=== PATIENT | female | born 1945 | race Caucasian/White ===

== ENCOUNTER → 2018-02-01 11:48 | Outpatient (CLI) | payer OTHER, SELFPAY ==
--- NOTE | 2018-02-08 09:27 | PM.PFT.1 ---
Pulmonary Function Test Referral & Results Date Patient Seen: 02/01/18 Requesting provider: Oskar Soto Indication: Dyspnea Results: The spirometry demonstrates an FVC of 2.10 L which is 60% of predicted. The FEV1 was measured at 1.44 L which is 54% of predicted. The FEV1/FVC ratio was 69 which is 91% of predicted. Following the administration of bronchodilator there was no appreciable change. Lung volumes show an SVC of 2.04 L which is 62% of predicted. The diffusing capacity was measured at 23.45 which is 75% of predicted. No hemoglobin value was provided, so no correction for potential anemia could be made, if appropriate. The maximum voluntary ventilation was reduced. Interpretation: This study demonstrates moderately severe obstructive lung disease as well as moderate restrictive lung disease. There is also a mild reduction in diffusing capacity Altogether this suggest a diagnosis of COPD. Clinical correlation suggested
== END ==
PROVIDERS: PCP Internal Medicine; Visit Provider Internal Medicine
DX: R06.00 Dyspnea, unspecified (principal)
CPT/HCPCS: 94010; 94060; 94726; 94729

== ENCOUNTER → 2018-08-11 13:39 | Outpatient (CLI) | payer OTHER, SELFPAY ==
--- NOTE | 2018-08-11 14:48 | PM.TREADMILL ---
Cardiac Stress Test Report Referral & Results Date Patient Seen: 08/11/18 Requesting provider: Oskar Soto Indication: Dyspnea Rest ECG: Unremarkable Procedure Note: After both written and verbal informed consent the patient had an IV started by the diagnostic imaging RN, and then was hooked up to the treadmill monitoring system. The Lexiscan material, and then the Cardiolite tracer, were administered sequentially. An additional 3 min was spent monitoring the patient while supine on the gurney. The patient had a normal response to all infused materials. Impression: Normal response to infuse materials. Perfusion imaging will be reported separately Of note patient reports some improvement in her dyspnea after starting a inhaled steroid. Will follow up with her as an outpatient. Please note: Actual ECG tracings can be found in the PACS system.
--- NOTE | 2018-08-11 16:00 | DI.NM.S_ITS ---
PATIENT NAME: JONATHAN GUTIÉRREZ : 1945 EXAM DATE: 08/11/2018 14:[address] HANDY ALEJANDRO M.D. CC: MODALITY: NM PATIENT TYPE: Out CONTRAST MEDIA: STATION ID: [id number] FLUORO TIME: PROCEDURE: NM KRISTIE PERF SPECT R&S PHARM Rest and pharmacological stress myocardial perfusion SPECT with gated imaging and ejection fraction RADIOPHARMACEUTICAL: 26.7 mCi Tc-99m tetrafosmin IV at rest and 27.3 mCi Tc-99m tetrafosmin IV at peak effect of pharmacological stress. Nxw-eob-nylvakse was performed. INDICATIONS: Dyspnea on Exertion COMPARISON: Comparison is made to the report of the prior study on 07/19/2007. CARDIAC STRESS: A pharmacologic stress test was performed under the supervision of an attending staff, using an infusion of Lexiscan . Hemodynamic data: Appropriate hemodynamic response to pharmacologic stress. Symptoms: The patient denied anginal chest pain. Aminophylline: Not given. EKG: No diagnostic changes of ischemia; no ectopy. FINDINGS: Raw data: There is suboptimal myocardial uptake of radiotracer. Significance subdiaphragmatic attenuation. No significant motion artifacts. Dedm-ad-dgzgg ratio is 0.52 ( normal is less than 0.38 for tetrafosmin tracer). Left ventricle function: Gated images demonstrate normal left ventricular wall thickening. No segmental wall motion abnormalities. No transient ischemic dilation; TID is 0.81 (normal less than 1.3). Left ventricle resting end diastolic volume is 167 mL. Left ventricle stress ejection fraction is 52%; normal range is above 45%. Myocardial perfusion: The image quality is suboptimal. There is significant subdiaphragmatic activity, interfering with perfusion imaging. There is a small, fixed apical defect on supine images which almost completely resolves on prone imaging, consistent with artifact . IMPRESSION: 1) Suboptimal study due to subdiaphragmatic interfering activity. 2) No evidence of ischemia. 3) Increased lung to heart ratio of tracer uptake. This can be seen in multivessel CAD. Clinical correlation is recommended. PATIENT NAME: JONATHAN GUTÉIRREZ : 1945 EXAM DATE: 08/11/2018 14:25 ORD. .: HANDY ALEJANDRO M.D. CC: MODALITY: NM PATIENT TYPE: Out CONTRAST MEDIA: STATION ID: [id number] FLUORO TIME: Dictated by: Dago Armijo on 08/15/2018 at 17:22 Approved by: Dago Armijo on 08/15/2018 at 17:38
== END ==
PROVIDERS: PCP Internal Medicine; Visit Provider Internal Medicine
DX: R06.09 Other forms of dyspnea (principal)
CPT/HCPCS: 78452; 93016; 93017; 93018; A9502; J2785

== ENCOUNTER → 2019-04-11 16:11 | Outpatient (CLI) | payer OTHER, SELFPAY ==
[2019-04-11 16:58] LABS: Add Manual Diff / Slide Review NO; Basophils Absolute Auto 0 /uL (0-100); Basophils Percent Auto 0.4 % (0-2); Eosinophils Absolute Auto 200 /uL (0-450); Eosinophils Percent Auto 2.1 % (2-4); Hematocrit 41.9 % (36-46); Hemoglobin 13.9 g/dL (12.0-16.0); Lymphocytes Absolute Auto 2400 /uL (1100-4500); Lymphocytes Percent Auto 32.9 % (25-40); Mean Corpuscular HGB Conc 33.1 % (30-36); Mean Corpuscular Hemoglobin 31.1 PG (26-34); Mean Corpuscular Volume 94.1 fL (80-100); Monocytes Absolute Auto 500 /uL (0-900); Monocytes Percent Auto 6.5 % (3-14); Neutrophils Absolute Auto 4300 /uL (1500-7000); Neutrophils Percent Auto 58.1 % (50-75); Platelet Count 205 X10^3/uL (150-400); Red Blood Cell Count 4.45 X10^6/uL (4.0-5.2); Red Cell Distribution Width 13.5 % (11.6-14.8); White Blood Cell Count 7.4 X10^3/uL (4.5-11.0)
[2019-04-11 17:11] LABS: Alanine Aminotransferase 12 IU/L (9-52); Albumin 4.5 g/dL (3.5-5.0); Albumin Globulin Ratio 1.3 (1.0-2.8); Alkaline Phosphatase 78 U/L (38-126); Aspartate Aminotransferase 19 IU/L (14-36); BUN Creatinine Ratio 31.1 (6-22); Bilirubin Total 0.7 mg/dL (0.2-1.3); Blood Urea Nitrogen 28 mg/dL (7-17); Calcium 10.7 mg/dL (8.4-10.2); Carbon Dioxide 28 mmol/L (22-32); Chloride 104 mmol/L (98-107); Estimated Glomerular Filt Rate > 60.0 mL/min (>60); Globulin 3.4 g/dL (1.7-4.1); Glucose 111 mg/dL (80-110); HEMOLYSIS < 15 (0-50); Lipase 159 U/L (23-300); Potassium 3.9 mmol/L (3.4-5.1); Sodium 143 mmol/L (137-145); Total Protein 7.9 g/dL (6.3-8.2)
[2019-04-11 17:20] LABS: Troponin I < 0.012 ng/mL (0.01-0.034)
[2019-04-11 17:25] LABS: Free T4, Direct Thyroxine 0.73 ng/dL (0.78-2.19)
[2019-04-11 17:40] LABS: Thyroid Stimulating Hormone 2.28 uIU/mL (0.47-4.68)
== END ==
PROVIDERS: PCP Internal Medicine; Visit Provider Internal Medicine
DX: I10 Essential (primary) hypertension (principal); R07.9 Chest pain, unspecified; R53.83 Other fatigue
CPT/HCPCS: 36415; 80053; 83690; 84439; 84443; 84484; 85025

== ENCOUNTER → 2019-05-04 10:46 | Outpatient (CLI) | payer OTHER, SELFPAY ==
--- NOTE | 2019-05-05 11:45 | PM.TREADMILL ---
Cardiac Stress Test Report Referral & Results Date Patient Seen: 05/05/19 Requesting provider: Oskar Soto Indication: Chest pain Rest ECG: Unremarkable Procedure Note: After both written and verbal informed consent the patient had an IV started by the diagnostic imaging RN, and then was hooked up to the treadmill monitoring system. The Lexiscan material, and then the Cardiolite tracer, were administered sequentially. An additional 3 min was spent monitoring the patient while supine on the gurney. The patient had a normal response to all infused materials. Impression: Normal response to infuse materials Please see perfusion imaging report for details regarding possible ischemia Please note: Actual ECG tracings can be found in the PACS system.
--- NOTE | 2019-05-06 07:11 | DI.NM.S_ITS ---
DATE OF SERVICE: 05/04/2019 PROCEDURE: Pharmacological perfusion study. INDICATIONS: Chest pain, underlying hypertension. RADIOPHARMACEUTICAL: 27.6 mCi technetium-99m Myoview IV was injected at stress and 26.0 mCi technetium-99m Myoview IV was injected at rest. CARDIAC STRESS: The patient underwent IV Lexiscan perfusion study under the supervision of an attending staff using standard IV Lexiscan protocol. The patient remained hemodynamically stable. Baseline EKG revealed sinus rhythm with low-voltage complexes in chest leads. During stress, there were no convincing ischemic changes. There were no significant arrhythmias. No significant symptoms were reported. RAW DATA: There was significant breast shadow as well as increased subdiaphragmatic activity. GATED STUDY: Resting LV ejection fraction 53% and stress LV ejection fracture 73% without any obvious wall motion abnormalities. Resting end-diastolic volume 136 mL. TID ratio 1.04, which is within normal. Lung/heart ratio 0.46, which is mildly abnormal. MYOCARDIAL PERFUSION: Resting supine images revealed a dcetd-tk-thjroimb-sized mildly decreased perfusion of the inferior wall. There is also a small-sized moderately-severe perfusion defect of the distal anterior wall extending into the distal anterior septum and distal anterior apex. During stress supine, there was a small-sized severe perfusion defect involving the distal anterior wall, anterior apex, and distal anterior septum. During prone images, those defects were significantly improved; however, there was minimally decreased perfusion of the distal anterior septum. CONCLUSION: No obvious reversible ischemia. The patient has inferior wall as well as distal anterior wall, anterior apex, and distal anterior septum defects seen during stress supine and resting supine images, and they got significantly improved during prone images, likely due to breast tissue attenuation artifact as well as diaphragmatic tissue attenuation artifact. There were hot spots seen near the inferior border of the heart. Significant breast shadow was seen. Normal contractility goes against the diagnosis of previous transmural myocardial infarction. As far as perfusion study is concerned, this is a low- risk myocardial perfusion scan. Lung/heart ratio is 0.46, suggestive of elevated left ventricular filling pressure. Consider 2d echo to make sure there is no valvular pathology or diastolic dysfunction. Daphne Palomino - [employer]ER/fara/ts doc#: [id number]/job#: [id number] dd: 05/05/2019 12:45:00 dt: 05/06/2019 06:43:00 DICTATING MD/COPIES TO: Jael Baxter MD COPIES MNE: CARINE
== END ==
PROVIDERS: PCP Internal Medicine; Visit Provider Internal Medicine
DX: R07.9 Chest pain, unspecified (principal); I10 Essential (primary) hypertension
CPT/HCPCS: 78452; 93016; 93017; 93018; A9502; J2785

== ENCOUNTER 2019-08-21 09:15 | Day surgery (SDC) | payer OTHER, SELFPAY ==
--- NOTE | 2019-08-21 | PATH_ITS ---
[facility] Accession Number: [id number] . 01 Material submitted: . colon - COLON POLYP AT 110 CM . 01 Clinical history: . SCREENING COLONOSCOPY . 02 Diagnosis: Colon, Polyp at 110 cm, Biopsy: Tubular adenoma. MRV 08/22/2019 0933 Local . 02 Electronically signed: . Karolina Armstrong MD, Pathologist NPI- [id number] . 01 Gross description: . COLON POLYP AT 110 CM: Received in formalin are 2 fragment(s) of saunders, soft tissue measuring 0.1 x 0.1 x 0.1 cm to 0.3 x 0.2 x 0.2 cm submitted entirely in 1 cassette(s) /[facility] 08/21/2019 192 Local . 02 Pathologist provided ICD-10: D12.6 . 02 CPT . 497156 Performed at: 01 [facility] [address] [facility] [place], [place], [place] [id number] MD Torres Marrero MD Phone: [phone] Performed at: 02 [facility] [address] [place], [place] [id number] MD Karolina Armstrong MD Phone: [phone]
[2019-08-21 09:37] VITALS: BP 121/77; PULSE 53; RESP 16; TEMP 36; O2SAT 98; BMI 28.2
[2019-08-21] MEDS: SODIUM CHLORIDE 0.9% 1,000 ML 200 ML IV (09:58)
--- NOTE | 2019-08-21 10:27 | PM.HP.1 ---
History of Present Illness History of Present Illness Date Patient Seen: 08/21/19 Time Patient Seen: 10:27 Chief complaint: [id number] SCREENING COLONOSCOPY Narrative: Patient presents for colorectal screening. That a previous colonoscopy 3 years ago that demonstrated numerous polyps 15-20.. No personal or family history of colon cancer. On further history denies any recent gastrointestinal symptoms. No nausea, vomiting, abdominal pain, loss of appetite, unexplained weight loss, change in bowel habits, diarrhea, constipation, melena, hematochezia, or bright red blood per rectum. Patient History Medical History Chronic pain syndrome (Chronic 04/14/11) Gout (Chronic) History of adenomatous polyp of colon (Chronic 04/07/16) Hyperlipidemia (Chronic) Hypertension (Chronic) Osteoarthritis (Chronic) Surgical History Anesthesia (Resolved) History of back surgery (Resolved) History of cholecystectomy (Resolved) History of knee replacement History of surgery (Resolved) S/P total abdominal hysterectomy and bilateral salpingo-oophorectomy Status post appendectomy Family & Social History Family History Grandfather Family history of diabetes mellitus (DM) Social History: household members spouse lives independently Yes caregiver/support person No Tobacco & Substance use: Smoking Status Never smoker alcohol intake current Meds Home Medications and Allergies Home Medications Medication Instructions Recorded Confirmed Type CA PANTOTHENATE/FOLIC ACID/VIT 1 tab PO QDAY #0 tab 05/16/13 08/21/19 History (MULTIVITAMIN) CHOLECALCIFEROL (VITAMIN D3) 400 unit PO QDAY #0 tab 05/16/13 08/21/19 History (Vitamin D3) Fish Oil (Fish Oil 500 MG Softgel) 1,200 mg PO QDAY #0 cap 05/16/13 08/21/19 History VITAMIN B COMPLEX (Vitamin B 1 tab PO QDAY #0 tab 05/16/13 08/21/19 History Complex) ascorbic acid (vitamin C) 500 mg PO QDAY #0 tab 05/16/13 08/21/19 History Disabled Parking Permit ea #1 08/05/17 08/17/19 Rx omeprazole 20 mg PO BID #60 cap 09/13/18 08/21/19 Rx lisinopril 40 mg PO BID #180 tab 04/20/19 08/21/19 Rx diazepam 5 mg tablet See Rx Instructions .ROUTE 06/08/19 08/21/19 Rx .COMPLEX #180 tablet hydrocodone 10 mg-acetaminophen See Rx Instructions .ROUTE 08/11/19 08/21/19 Rx 325 mg tablet .COMPLEX #360 tablet furosemide 40 mg tablet See Rx Instructions .ROUTE 08/14/19 08/21/19 Rx .COMPLEX #180 tablet celecoxib 200 mg capsule See Rx Instructions .ROUTE 08/17/19 08/21/19 Rx .COMPLEX #90 capsule pregabalin 150 mg capsule 150 mg PO DAILY #90 cap 08/17/19 08/21/19 Rx metoprolol tartrate [Lopressor] 100 mg PO BID 08/21/19 08/21/19 History Allergies Allergy/AdvReac Type Severity Reaction Status Date / Time duloxetine AdvReac Mild sedation Verified 08/17/19 14:17 Review of Systems Review of Systems Narrative: A complete review of systems is negative except as noted in the HPI Exam Vital Signs (past 8 hours): - 08/21/19 09:37 Temperature 96.8 F L Pulse Rate 53 L Respiratory Rate 16 Blood Pressure 121/77 Pulse Oximetry 98 Oxygen Delivery Method Room Air Narrative Exam Narrative: General-no acute distress, well nourished HEENT-moist mucous membranes, no scleral icterus Neck-supple, no lymphadenopathy Chest- non labored respirations, clear to auscultation bilaterally Cardiac-regular rate no peripheral edema Abdomen-soft, nontender, non distended Extremities-warm, well perfused Neurological-alert and oriented, no focal deficits Assessment & Plan Assessment and plan (1) Screening for colon cancer: Current visit: Yes Status: Acute Assessment & Plan narrative: The patient requires colorectal screening and colonoscopy is recommended. Technical details were discussed. Risks, benefits, alternatives explained. Risks including but not limited to myocardial infarction, aspiration, bleeding, pain, missed lesion, incomplete examination, need for further radiographic studies, colonic perforation, and need for major abdominal surgery were discussed. All questions were answered to their satisfaction, and they are in agreement with this plan.
[2019-08-21] MEDS: MIDAZOLAM 5 MG/5 ML VIAL IV (10:29)
[2019-08-21] MEDS: fentaNYL 250 MCG/5 ML INJ IV (10:29)
--- NOTE | 2019-08-21 10:59 | PM.OP.ENDO ---
Operative Date/Time/Diagnoses Date of procedure: 08/21/19 Time of procedure: 10:59 Pre-op diagnosis: Screening colonoscopy Post-op diagnosis: same Procedure & Clinicians Study performed: Colonoscopy Same procedure as scheduled: Yes Indications: This is a 73-year-old woman who underwent a colonoscopy 3 years ago that demonstrated numerous, 15-20 polyps. She presents today for routine screening. Surgeon: Paco Mccormick Procedure Notes SCOAP/Timeout: Performed Procedure in detail: Patient placed in left lateral decubitus position. Time out was performed. Procedural sedation was administered with Versed and Fentanyl. A rectal exam demonstrated no external hemorrhoids no internal masses. Colonoscopy scope was placed into the rectum and advanced through the colon to the cecum. The ileocecal valve was identified. The scope was then slowly withdrawn examining colon thoroughly in all directions. The colonoscopy was notable for the following 1. Less than 1 cm polyp at 110 cm from the anal verge within the ascending colon removed with biopsy forceps. Site was observed for hemostasis. 2. Sigmoid diverticulosis 3. Grade 1 internal hemorrhoids 4. Quality of prep moderate Scope withdrawal time: 7 Sedation minutes: 22 Findings: diverticulosis and polyp Specimen(s): other (Polyp from 110 cm) Complications: none Impression: Polyp, diverticulosis Post-procedure Recommendations: Colonscopy in 5 years Disposition: same day surgery
[2019-08-21 11:00] VITALS: BP 106/63; PULSE 48; RESP 10; TEMP 36.2; O2SAT 99
[2019-08-21 11:05] VITALS: BP 100/58; PULSE 51; RESP 12; O2SAT 100
[2019-08-21 11:10] VITALS: BP 98/62; PULSE 52; RESP 15; O2SAT 99
[2019-08-21 11:19] VITALS: BP 108/64; PULSE 50; RESP 16; TEMP 36.3; O2SAT 99
[2019-08-21 11:31] VITALS: BP 109/69; PULSE 55; RESP 16; TEMP 35.9; O2SAT 99
== END 2019-08-21 11:39 | disposition home or self-care (01) ==
PROVIDERS: PCP Internal Medicine; Visit Provider Surgery
PROC: 0DJD8ZZ Inspection of Lower Intestinal Tract, Via Natural or Artificial Opening Endoscopic (ICD-10-PCS; CPT 45378; principal; 2019-08-21 10:45)
DX: Z12.11 Encounter for screening for malignant neoplasm of colon (principal); Z86.010 Personal history of colon polyps; I10 Essential (primary) hypertension; E78.5 Hyperlipidemia, unspecified; K57.30 Diverticulosis of large intestine without perforation or abscess without bleeding; K64.0 First degree hemorrhoids; D12.6 Benign neoplasm of colon, unspecified
CPT/HCPCS: 45380; 99152; J2250; J3010

== ENCOUNTER → 2020-06-28 14:13 | Outpatient (CLI) | payer OTHER, SELFPAY ==
[2020-06-28 15:48] LABS: Alanine Aminotransferase 14 IU/L (<35); Albumin 4.3 g/dL (3.5-5.0); Albumin Globulin Ratio 1.2 (1.0-2.8); Alkaline Phosphatase 87 U/L (38-126); Aspartate Aminotransferase 25 IU/L (14-36); BUN Creatinine Ratio 39.3 (6-22); Bilirubin Total 0.6 mg/dL (0.2-1.3); Blood Urea Nitrogen 53 mg/dL (7-17); Calcium 10.3 mg/dL (8.4-10.2); Carbon Dioxide 32 mmol/L (22-32); Chloride 107 mmol/L (98-107); Cholesterol 219 mg/dL (140-199); Estimated Glomerular Filt Rate 38.1 mL/min (>60); Globulin 3.7 g/dL (1.7-4.1); Glucose 113 mg/dL (80-110); HDL Cholesterol 33 mg/dL (40-60); HEMOLYSIS < 15 (0-50); LDL Cholesterol Calculated 143 mg/dL (<100); Potassium 4.7 mmol/L (3.4-5.1); Sodium 144 mmol/L (137-145); Triglycerides 214 mg/dL (35-150)
== END ==
PROVIDERS: PCP Internal Medicine; Referring Provider Internal Medicine; Visit Provider Internal Medicine
DX: E78.5 Hyperlipidemia, unspecified (principal); I10 Essential (primary) hypertension
CPT/HCPCS: 36415; 80053; 80061

== ENCOUNTER → 2021-03-28 15:29 | Outpatient (CLI) | payer OTHER, SELFPAY ==
[2021-03-28 16:51] LABS: Appearance Urine UA SL CLOUDY; Bilirubin Urine UA NEGATIVE (NEGATIVE); Color Urine UA YELLOW; Glucose Urine UA NEGATIVE (Negative); Ketones Urine UA NEGATIVE (NEGATIVE); Leukocyte Esterase Urine UA 2+ (NEGATIVE); Nitrite Urine UA POSITIVE (Negative); Occult Blood Urine UA 2+ (Negative); Protein Urine UA NEGATIVE (Negative); Urobilinogen Urine UA 0.2 E.U./dL (0.2)
[2021-03-28 16:57] LABS: BUN Creatinine Ratio 28.8 (6-22); Blood Urea Nitrogen 34 mg/dL (7-17); Calcium 9.8 mg/dL (8.4-10.2); Carbon Dioxide 30 mmol/L (22-32); Chloride 105 mmol/L (98-107); Estimated Glomerular Filt Rate 44.4 mL/min (>60); Glucose 101 mg/dL (80-110); HEMOLYSIS < 15 (0-50); Potassium 4.4 mmol/L (3.4-5.1); Sodium 141 mmol/L (137-145)
[2021-03-28 17:07] LABS: pH Urine UA 5.5 (4.5-8.0)
[2021-03-28 17:10] LABS: Bacteria Urine Moderate (10-30); Culture Indicated Urine Specimen Cultured; RBC Urine 0-1/HPF (0-5/HPF); Squamous Epithelial Cell Urine 0-1 /HPF (0-5/HPF); WBC Urine >100/HPF (0-5/HPF)
== END ==
PROVIDERS: PCP Internal Medicine; Referring Provider Internal Medicine; Visit Provider Internal Medicine
DX: R30.0 Dysuria (principal); I10 Essential (primary) hypertension
CPT/HCPCS: 36415; 80048; 81001; 87077; 87086; 87186

== ENCOUNTER → 2021-10-09 15:55 | Outpatient (CLI) | payer OTHER, SELFPAY ==
[2021-10-09 17:12] LABS: Appearance Urine UA CLEAR; Bilirubin Urine UA NEGATIVE (NEGATIVE); Color Urine UA YELLOW; Glucose Urine UA NEGATIVE (Negative); Ketones Urine UA NEGATIVE (NEGATIVE); Leukocyte Esterase Urine UA TRACE (NEGATIVE); Nitrite Urine UA NEGATIVE (Negative); Occult Blood Urine UA NEGATIVE (Negative); Protein Urine UA NEGATIVE (Negative); Specific Gravity Urine UA 1.015 (1.000-1.035); Urobilinogen Urine UA 0.2 E.U./dL (0.2)
[2021-10-09 17:15] LABS: BUN Creatinine Ratio 26.4 (6-22); Blood Urea Nitrogen 24 mg/dL (7-17); Calcium 10.2 mg/dL (8.4-10.2); Carbon Dioxide 36 mmol/L (22-32); Chloride 102 mmol/L (98-107); Estimated Glomerular Filt Rate 59.9 mL/min (>60); Glucose 137 mg/dL (80-110); HEMOLYSIS 19 (0-50); Potassium 3.7 mmol/L (3.4-5.1); Sodium 139 mmol/L (137-145)
[2021-10-09 17:24] LABS: Bacteria Urine Occasional (0-1); Culture Indicated Urine Specimen Cultured; Hyaline Casts Urine 10-30/LPF; RBC Urine 0-1/HPF (0-5/HPF); Squamous Epithelial Cell Urine 1-5 /HPF (0-5/HPF); WBC Urine 5-10/HPF (0-5/HPF)
== END ==
PROVIDERS: PCP Internal Medicine; Referring Provider Internal Medicine; Visit Provider Internal Medicine
DX: I10 Essential (primary) hypertension (principal); N18.31 Chronic kidney disease, stage 3a; R30.0 Dysuria
CPT/HCPCS: 36415; 80048; 81001; 87086

== ENCOUNTER → 2022-04-27 15:00 | Outpatient (CLI) | payer OTHER, SELFPAY ==
[2022-04-27 16:47] LABS: Alanine Aminotransferase 17 IU/L (<35); Albumin 4.4 g/dL (3.5-5.0); Albumin Globulin Ratio 1.2 (1.0-2.8); Alkaline Phosphatase 122 U/L (38-126); Aspartate Aminotransferase 20 IU/L (14-36); BUN Creatinine Ratio 29.5 (6-22); Bilirubin Total 0.6 mg/dL (0.2-1.3); Blood Urea Nitrogen 28 mg/dL (7-17); Calcium 10.1 mg/dL (8.4-10.2); Carbon Dioxide 32 mmol/L (22-32); Chloride 99 mmol/L (98-107); Estimated Glomerular Filt Rate > 60 mL/min (>60); Globulin 3.8 g/dL (1.7-4.1); Glucose 124 mg/dL (80-110); HEMOLYSIS < 15 (0-50); Potassium 4.2 mmol/L (3.4-5.1); Sodium 140 mmol/L (137-145); Total Protein 8.2 g/dL (6.3-8.2)
== END ==
PROVIDERS: PCP Internal Medicine; Referring Provider Internal Medicine; Visit Provider Internal Medicine
DX: E78.5 Hyperlipidemia, unspecified (principal); G89.4 Chronic pain syndrome; I10 Essential (primary) hypertension; N18.31 Chronic kidney disease, stage 3a
CPT/HCPCS: 36415; 80053

== ENCOUNTER 2022-12-30 16:48 | Inpatient (IN) | payer OTHER, SELFPAY ==
[2022-12-30] VITALS (23 sets, daily range): BP systolic 143–203; BP diastolic 72–124; PULSE 79–101; RESP 21–34; TEMP 36.6; O2SAT 89–94; BMI 37.8
--- NOTE | 2022-12-30 17:39 | DI.RAD.S_ITS ---
PROCEDURE: XR CHEST 1V INDICATIONS: chest pain TECHNIQUE: One view of the chest was acquired. COMPARISON: [facility], , CHEST 2 VIEW, 12/27/2017, 10:42. FINDINGS: Surgical changes and devices: None. Lungs and pleura: Mild patchy diffuse reticulonodular pulmonary opacity. No pleural effusions or pneumothorax. Mediastinum: Mediastinal contours appear normal. Heart size is normal. Bones and chest wall: No suspicious bony lesions. Overlying soft tissues appear unremarkable. IMPRESSION: Mild atypical pneumonia. Dictated by: Jorge Gardner M.D. on 12/30/2022 at 17:58 Approved by: Jorge Gardner M.D. on 12/30/2022 at 17:58
[2022-12-30 17:50] LABS: INR 1.1 (0.9-1.3); Prothrombin Time 12.1 SECONDS (10.1-12.7)
[2022-12-30 17:53] LABS: PTT Partial Thromboplastin Tim 31 SECONDS (26-36)
[2022-12-30 17:55] LABS: Alanine Aminotransferase 25 IU/L (<35); Albumin 4.4 g/dL (3.5-5.0); Albumin Globulin Ratio 1.1 (1.0-2.8); Alkaline Phosphatase 122 U/L (38-126); Aspartate Aminotransferase 27 IU/L (14-36); BUN Creatinine Ratio 25.9 (6-22); Bilirubin Total 0.5 mg/dL (0.2-1.3); Blood Urea Nitrogen 21 mg/dL (7-17); Calcium 9.8 mg/dL (8.4-10.2); Carbon Dioxide 32 mmol/L (22-32); Chloride 99 mmol/L (98-107); Creatine Kinase 47 U/L (30-135); Estimated Glomerular Filt Rate > 60 mL/min (>60); Glucose 157 mg/dL (80-110); HEMOLYSIS 21 (0-50); Lipase 100 U/L (23-300); Magnesium 1.8 mg/dL (1.6-2.3); Potassium 3.5 mmol/L (3.4-5.1); Sodium 141 mmol/L (137-145); Total Protein 8.4 g/dL (6.3-8.2)
[2022-12-30 18:03] LABS: Add Manual Diff / Slide Review NO; Basophils Absolute Auto 0 /uL (0-100); Basophils Percent Auto 0.4 % (0-2); Eosinophils Absolute Auto 200 /uL (0-450); Eosinophils Percent Auto 1.4 % (2-4); Hematocrit 42.7 % (36-46); Hemoglobin 14.2 g/dL (12.0-16.0); Lymphocytes Absolute Auto 2100 /uL (1100-4500); Lymphocytes Percent Auto 18.8 % (25-40); Mean Corpuscular HGB Conc 33.2 % (30-36); Mean Corpuscular Hemoglobin 30.4 PG (26-34); Mean Corpuscular Volume 91.4 fL (80-100); Monocytes Absolute Auto 700 /uL (0-900); Monocytes Percent Auto 6.1 % (3-14); Neutrophils Absolute Auto 8300 /uL (1500-7000); Neutrophils Percent Auto 73.3 % (50-75); Platelet Count 220 X10^3/uL (150-400); Red Blood Cell Count 4.67 X10^6/uL (4.0-5.2); Red Cell Distribution Width 13.8 % (11.6-14.8); White Blood Cell Count 11.3 X10^3/uL (4.5-11.0)
[2022-12-30 18:04] LABS: NT-proBNP (BNP-Adult 18+) 1190 pg/mL (<450)
[2022-12-30 18:17] LABS: COVID19 -Nasal RAPID Negative (Negative)
--- NOTE | 2022-12-30 18:58 | ED.CHESTPAIN ---
HPI - Chest Pain General Chief Complaint: Chest Pain Stated Complaint: difficulty breathing Time Seen by Provider: 12/30/22 18:57 Source: patient Mode of arrival: Ambulatory Limitations: no limitations History of Present Illness HPI narrative: This is a 77-year-old female with history of hypertension, chronic pain syndrome, chronic kidney disease, gout, osteoarthritis and dyslipidemia complaint of shortness of breath and chest pressure that started today. Patient states she is had some shortness of breath and increasing tachypnea for several weeks but today developed significant shortness of breath after playing cards and started to walk to her car she also noticed a long episode of chest pressure that resolved and she is had 2 very short episodes later. Patient states substernal radiates towards her back nor else. She states activity seems to make her symptoms worse. Resting makes better but did not totally resolve her shortness of breath or chest pain. She denies any syncope or dizziness. She did feel weird earlier today when this started. She denies any diaphoresis. No nausea or vomiting. She states she does have chronic swelling in her lower extremity she does not appreciate any worsening or changing. She denies changes 1 leg versus the other. She does note 2 weeks ago she had a rash on her face where she swelled up had redness and blistering on the outside as well as inside of her mouth. She states it went away after week came back once before and then resolved. She denies fevers chills no cold cough or congestion. Patient states she is had multiple back surgeries remotely, prior knee surgery, appendectomy hysterectomy, cholecystectomy. She states no cardiac interventions or stents, no prior cardiac catheterization. She is had a stress test but remotely. No known drug allergies. No tobacco, alcohol or illicit. Related Data Home Medications Medication Instructions Recorded Confirmed CA PANTOTHENATE/FOLIC ACID/VIT 1 tab PO QDAY #0 tabs 05/16/13 12/30/22 (MULTIVITAMIN) CHOLECALCIFEROL (VITAMIN D3) 400 unit PO QDAY #0 tabs 05/16/13 12/30/22 (Vitamin D3) VITAMIN B COMPLEX (Vitamin B 1 tab PO QDAY #0 tabs 05/16/13 12/30/22 Complex) ascorbic acid (vitamin C) 500 mg 500 mg PO QDAY #0 tabs 05/16/13 12/30/22 tablet Previous Rx's Medication Instructions Recorded lisinopril 40 mg tablet 40 mg PO BID #180 tabs 10/09/21 Disabled Parking #1 ea 04/27/22 diazepam 5 mg tablet 5 mg PO Q8H PRN anxiety #180 tabs 05/01/22 pregabalin 150 mg capsule (Lyrica) 150 mg PO BID #180 caps 08/14/22 furosemide 40 mg tablet See Rx Instructions .Route 08/17/22 .COMPLEX #180 tabs omeprazole 20 mg capsule,delayed 20 mg PO BID #180 caps 08/25/22 release metoprolol tartrate 100 mg tablet 150 mg PO BID #270 tabs 09/07/22 (Lopressor) hydrocodone 10 mg-acetaminophen 1 - 2 tab PO Q4H PRN pain in 12/15/22 325 mg tablet joints #360 tabs apixaban 5 mg tablet (Eliquis) 5 mg PO BID #180 tabs 01/01/23 apixaban 5 mg tablet (Eliquis) 10 mg PO BID 7 days #28 tabs 01/01/23 Allergies Allergy/AdvReac Type Severity Reaction Status Date / Time duloxetine AdvReac Mild sedation Verified 09/07/22 14:33 Review of Systems Review of Systems ROS Unobtainable: All systems reviewed & are unremarkable except as noted in HPI and below Patient History Medical History Cardiomyopathy Chronic pain syndrome (04/14/11) Chronic renal failure, stage 3a Gout History of adenomatous polyp of colon (04/07/16) Hyperlipidemia Hypertension Osteoarthritis Uncomplicated opioid dependence Surgical History Anesthesia History of back surgery History of cholecystectomy History of knee replacement History of surgery S/P total abdominal hysterectomy and bilateral salpingo-oophorectomy Status post appendectomy Family History Grandfather Family history of diabetes mellitus (DM) Social History marital status: number of children: 2 household members: spouse lives independently: Yes caregiver/support person: No housing: house pets and animals: No education level: college occupational status: employed (Self Employed) current occupational exposures/hazards: No leisure activities: games (Bridge) and other (Boating, Traveling) Smoking Status: Never smoker Tobacco: How many years used: 0 quit status: quit date established (Never Started) second hand exposure: Yes (Past) alcohol intake: current substance use type: does not use Smoking Status: Never smoker Substance Use Type: does not use Exam Narrative Exam Narrative: GENERAL: Alert and oriented x three, elderly female in moderate distress. HEENT: Head normocephalic, atraumatic, EOMI, pupils reactive, face symmetric, moist mucous membranes NECK: Supple, full range of motion CARDIOVASCULAR: Regular rate and rhythm without murmurs, rubs or gallops. No JVD. Mild swelling bilateral lower extremities. No reproducible chest pain with palpation. No rash or skin changes. RESPIRATORY: Breath sounds equal bilaterally, no wheezes or rhonchi. Crackles bilateral bases. Mild tachypnea. ABDOMEN: Soft, nontender. Normoactive bowel sounds all 4 quadrants. No guarding or rebound, rigidity, no mass : No CVA tenderness EXTREMITIES: Normal range of motion, no clubbing. Neurovascularly intact NEUROLOGICAL: Cranial nerves II through XII grossly intact. Moving all extremities SKIN: Warm, dry, no petechiae, no rashes or lesions. Initial Vital Signs Initial Vital Signs: Vital Signs Blood Pressure 199/124 H 12/30/22 17:03 Course Orders Ordered: Discontinued Medications Acetaminophen (Acetaminophen 325 Mg Tablet) 650 mg PO Q6H PRN PRN Reason: Fever/Mild Pain (1-3) Hydrocodone Bitart/Acetaminophen (Hydrocodone/Acet 5/325 Tablet) 1 tab PO Q4H PRN PRN Reason: Pain, Moderate (4-6) Last Admin: 12/31/22 00:14 Dose: 1 tab Documented By: ABHINAV Hydrocodone Bitart/Acetaminophen (Hydrocodone/Acet 5/325 Tablet) 2 tab PO Q4H PRN PRN Reason: Pain, Moderate (4-6) Last Admin: 01/01/23 06:10 Dose: 2 tab Documented By: Admin: 01/01/23 01:11 Dose: 2 tab Documented By: Admin: 12/31/22 20:05 Dose: 2 tab Documented By: Admin: 12/31/22 14:25 Dose: 2 tab Documented By: Admin: 12/31/22 09:26 Dose: 2 tab Documented By: Admin: 12/31/22 04:31 Dose: 2 tab Documented By: ABHINAV Apixaban (Apixaban 5 Mg Tablet) 10 mg PO BID MALINA Stop: 01/07/23 09:01 Last Admin: 01/01/23 08:58 Dose: Not Given Documented By: Admin: 01/01/23 08:48 Dose: 10 mg Documented By: ALEM Aspirin (Aspirin 81 Mg Chew Tab) 324 mg PO NOW ONE Stop: 12/30/22 19:17 Last Admin: 12/30/22 19:22 Dose: 324 mg Documented By: VLADIMIR Diazepam (Diazepam 5 Mg Tablet) 5 mg PO Q8H PRN PRN Reason: anxiety Last Admin: 12/31/22 14:25 Dose: 5 mg Documented By: Furosemide (Furosemide 40 Mg/4 Ml Vial) 40 mg IV NOW ONE Stop: 12/30/22 19:50 Last Admin: 12/30/22 20:24 Dose: 40 mg Documented By: GIDEON Furosemide (Furosemide 40 Mg Tablet) 40 mg PO DAILY [facility] Last Admin: 01/01/23 08:48 Dose: 40 mg Documented By: Admin: 12/31/22 08:14 Dose: 40 mg Documented By: Heparin Sodium (Porcine) (Heparin 5,000 Unit/Ml Vial) 7,500 unit IV NOW ONE Stop: 12/30/22 20:23 Last Admin: 12/30/22 20:40 Dose: 7,500 unit Documented By: GIDEON Heparin Sodium (Porcine) (Heparin 5,000 Unit/Ml Vial) 2,000 unit IV NOW ONE Stop: 12/31/22 23:58 Last Admin: 01/01/23 00:09 Dose: 2,000 unit Documented By: OSMANI Hydralazine HCl (Hydralazine 20 Mg/Ml Vial) 10 mg IV Q6HR PRN PRN Reason: Hypertension Ceftriaxone Sodium 2,000 mg/ (Sodium Chloride) 100 mls @ 200 mls/hr IV NOW ONE Stop: 12/30/22 19:51 Last Infusion: 12/30/22 21:03 Dose: 0 mls/hr Documented By: Admin: 12/30/22 20:24 Dose: 200 mls/hr Documented By: GIDEON Heparin Sodium/Dextrose (Heparin Drip) 25,000 unit in 500 mls @ 20 mls/hr IV CONT MALINA; Protocol Last Titration: 12/31/22 23:55 Dose: 1,300 units/hr, 26 mls/hr Documented By: OSMANI Co-signed By: ABDIRAHMAN Titration: 12/31/22 19:06 Dose: 1,200 units/hr, 24 mls/hr Documented By: Co-signed By: OSMANI Admin: 12/31/22 17:11 Dose: 1,100 units/hr, 22 mls/hr Documented By: MS Co-signed By: EM Titration: 12/31/22 17:11 Dose: 1,100 units/hr, 22 mls/hr Documented By: MS Co-signed By: EM Titration: 12/31/22 09:31 Dose: 1,100 units/hr, 22 mls/hr Documented By: Co-signed By: CM Admin: 12/30/22 20:45 Dose: 1,000 units/hr, 20 mls/hr Documented By: GIDEON Co-signed By: LIANET Lisinopril (Lisinopril 20 Mg Tablet) 40 mg PO DAILY [facility] Last Admin: 01/01/23 08:48 Dose: 40 mg Documented By: Admin: 12/31/22 08:14 Dose: 40 mg Documented By: Magnesium Oxide (Magnesium Oxide 400 Mg Tablet) 400 mg PO DAILY [facility] Last Admin: 01/01/23 08:48 Dose: 400 mg Documented By: Admin: 12/31/22 08:14 Dose: 400 mg Documented By: Admin: 12/31/22 00:38 Dose: 400 mg Documented By: ABHINAV Metoprolol Tartrate (Metoprolol Ir 50 Mg Tablet) 150 mg PO BID [facility] Last Admin: 01/01/23 08:48 Dose: 150 mg Documented By: Admin: 12/31/22 20:04 Dose: 150 mg Documented By: Admin: 12/31/22 08:14 Dose: 150 mg Documented By: Naloxone HCl (Naloxone 0.4 Mg/Ml Vial) 0.2 mg IV Q2MIN PRN PRN Reason: Opiate Reversal Nitroglycerin (Nitroglycerin 0.4 Mg Sl Tab) 0.4 mg SL [id number] PRN PRN Reason: Chest Pain Last Admin: 12/30/22 19:35 Dose: 0.4 mg Documented By: Admin: 12/30/22 19:29 Dose: 0.4 mg Documented By: Admin: 12/30/22 19:23 Dose: 0.4 mg Documented By: VLADIMIR Pantoprazole Sodium (Pantoprazole Dr 20 Mg Tablet) 20 mg PO 0700,2100 [facility] Last Admin: 01/01/23 06:06 Dose: 20 mg Documented By: Admin: 12/31/22 20:05 Dose: 20 mg Documented By: Admin: 12/31/22 08:15 Dose: 20 mg Documented By: Pregabalin (Pregabalin 75 Mg Capsule) 150 mg PO DAILY [facility] Last Admin: 01/01/23 08:49 Dose: 150 mg Documented By: Admin: 12/31/22 08:15 Dose: 150 mg Documented By: Vitamin D (Cholecalciferol (Vitamin D3) 400 Unit Tablet) 400 unit PO DAILY [facility] Last Admin: 01/01/23 08:48 Dose: 400 unit Documented By: Admin: 12/31/22 08:14 Dose: 400 unit Documented By: Vital Signs Vital signs: Vital Signs - 8 hr 12/30/22 17:08 12/30/22 17:03 12/30/22 17:04 Temperature 97.8 F Pulse Rate 93 H 98 H Respiratory Rate 24 Blood Pressure 199/124 H 199/124 H Pulse Oximetry 93 91 Oxygen Delivery Method Room Air 12/30/22 17:30 12/30/22 17:30 12/30/22 18:00 Temperature Pulse Rate 85 Respiratory Rate 28 H Blood Pressure 188/92 H 190/112 H Pulse Oximetry 91 Oxygen Delivery Method 12/30/22 18:00 12/30/22 18:30 12/30/22 18:30 Temperature Pulse Rate 85 84 Respiratory Rate 29 H 28 H Blood Pressure 187/105 H Pulse Oximetry 91 92 Oxygen Delivery Method 12/30/22 19:00 12/30/22 19:00 12/30/22 19:23 Temperature Pulse Rate 83 81 Respiratory Rate 28 H Blood Pressure 189/102 H 189/102 H Pulse Oximetry 94 Oxygen Delivery Method 12/30/22 19:29 12/30/22 19:35 12/30/22 19:25 Temperature Pulse Rate 92 H 92 H 93 H Respiratory Rate 34 H Blood Pressure 191/103 H 177/96 H Pulse Oximetry 92 Oxygen Delivery Method 12/30/22 19:25 12/30/22 19:30 12/30/22 19:30 Temperature Pulse Rate 92 H Respiratory Rate 27 H Blood Pressure 191/103 H 203/100 H Pulse Oximetry 90 L Oxygen Delivery Method 12/30/22 19:35 12/30/22 19:35 12/30/22 19:40 Temperature Pulse Rate 92 H 93 H Respiratory Rate 26 H 29 H Blood Pressure 177/96 H Pulse Oximetry 90 L 89 L Oxygen Delivery Method 12/30/22 19:40 Temperature Pulse Rate Respiratory Rate Blood Pressure 152/95 H Pulse Oximetry Oxygen Delivery Method MDM - Chest Pain Lab Data 01/01/23 06:00 12/30/22 17:05 Labs: Lab Results 12/30/22 12/30/22 12/30/22 Range/Units 17:05 17:05 17:05 WBC 11.3 H (4.5-11.0) X10^3/uL RBC 4.67 (4.0-5.2) X10^6/uL Hgb 14.2 (12.0-16.0) g/dL Hct 42.7 (36-46) % MCV 91.4 (80-100) fL MCH 30.4 (26-34) PG MCHC 33.2 (30-36) % RDW 13.8 (11.6-14.8) % Plt Count 220 (150-400) X10^3/uL Neut % (Auto) 73.3 (50-75) % Lymph % (Auto) 18.8 L (25-40) % Hall % (Auto) 6.1 (3-14) % Eos % (Auto) 1.4 L (2-4) % Baso % (Auto) 0.4 (0-2) % Neut # (Auto) 8300 H (1253-4828) /uL Lymph # (Auto) 2100 (1832-1888) /uL Hall # (Auto) 700 (0-900) /uL Eos # (Auto) 200 (0-450) /uL Baso # (Auto) 0 (0-100) /uL PT 12.1 (10.1-12.7) SECONDS INR 1.1 (0.9-1.3) APTT 31 (26-36) SECONDS D-Dimer (<500) ng/ml Sodium 141 (137-145) mmol/L Potassium 3.5 (3.4-5.1) mmol/L Chloride 99 (98-107) mmol/L Carbon Dioxide 32 (22-32) mmol/L BUN 21 H (7-17) mg/dL Creatinine 0.81 (0.52-1.04) mg/dL Estimated GFR > 60 (>60) mL/min BUN/Creatinine Ratio 25.9 H (6-22) Glucose 157 H (80-110) mg/dL Lactate (0.7-2.1) mmol/L Calcium 9.8 (8.4-10.2) mg/dL Magnesium 1.8 (1.6-2.3) mg/dL Total Bilirubin 0.5 (0.2-1.3) mg/dL AST 27 (14-36) IU/L ALT 25 (<35) IU/L Alkaline Phosphatase 122 (38-126) U/L Total Creatine Kinase 47 (30-135) U/L CK-MB (CK-2) TNP CK-MB (CK-2) Rel Index TNP Troponin I 0.040 H (0.01-0.034) ng/mL NT-Pro-B Natriuret Pep (<450) pg/mL Total Protein 8.4 H (6.3-8.2) g/dL Albumin 4.4 (3.5-5.0) g/dL Globulin 4.0 (1.7-4.1) g/dL Albumin/Globulin Ratio 1.1 (1.0-2.8) Lipase 100 (23-300) U/L Procalcitonin (<0.5) ng/mL SARS-CoV-2 (PCR) (Negative) 12/30/22 12/30/22 12/30/22 Range/Units 17:05 17:05 17:05 WBC (4.5-11.0) X10^3/uL RBC (4.0-5.2) X10^6/uL Hgb (12.0-16.0) g/dL Hct (36-46) % MCV (80-100) fL MCH (26-34) PG MCHC (30-36) % RDW (11.6-14.8) % Plt Count (150-400) X10^3/uL Neut % (Auto) (50-75) % Lymph % (Auto) (25-40) % Hall % (Auto) (3-14) % Eos % (Auto) (2-4) % Baso % (Auto) (0-2) % Neut # (Auto) (5158-0520) /uL Lymph # (Auto) (3569-6341) /uL Hall # (Auto) (0-900) /uL Eos # (Auto) (0-450) /uL Baso # (Auto) (0-100) /uL PT (10.1-12.7) SECONDS INR (0.9-1.3) APTT (26-36) SECONDS D-Dimer 3308 H (<500) ng/ml Sodium (137-145) mmol/L Potassium (3.4-5.1) mmol/L Chloride (98-107) mmol/L Carbon Dioxide (22-32) mmol/L BUN (7-17) mg/dL Creatinine (0.52-1.04) mg/dL Estimated GFR (>60) mL/min BUN/Creatinine Ratio (6-22) Glucose (80-110) mg/dL Lactate 2.1 (0.7-2.1) mmol/L Calcium (8.4-10.2) mg/dL Magnesium (1.6-2.3) mg/dL Total Bilirubin (0.2-1.3) mg/dL AST (14-36) IU/L ALT (<35) IU/L Alkaline Phosphatase (38-126) U/L Total Creatine Kinase (30-135) U/L CK-MB (CK-2) CK-MB (CK-2) Rel Index Troponin I (0.01-0.034) ng/mL NT-Pro-B Natriuret Pep 1190 H (<450) pg/mL Total Protein (6.3-8.2) g/dL Albumin (3.5-5.0) g/dL Globulin (1.7-4.1) g/dL Albumin/Globulin Ratio (1.0-2.8) Lipase (23-300) U/L Procalcitonin (<0.5) ng/mL SARS-CoV-2 (PCR) (Negative) 12/30/22 12/30/22 12/30/22 Range/Units 17:05 17:43 19:16 WBC (4.5-11.0) X10^3/uL RBC (4.0-5.2) X10^6/uL Hgb (12.0-16.0) g/dL Hct (36-46) % MCV (80-100) fL MCH (26-34) PG MCHC (30-36) % RDW (11.6-14.8) % Plt Count (150-400) X10^3/uL Neut % (Auto) (50-75) % Lymph % (Auto) (25-40) % Hall % (Auto) (3-14) % Eos % (Auto) (2-4) % Baso % (Auto) (0-2) % Neut # (Auto) (2557-3752) /uL Lymph # (Auto) (2765-7944) /uL Hall # (Auto) (0-900) /uL Eos # (Auto) (0-450) /uL Baso # (Auto) (0-100) /uL PT (10.1-12.7) SECONDS INR (0.9-1.3) APTT (26-36) SECONDS D-Dimer (<500) ng/ml Sodium (137-145) mmol/L Potassium (3.4-5.1) mmol/L Chloride (98-107) mmol/L Carbon Dioxide (22-32) mmol/L BUN (7-17) mg/dL Creatinine (0.52-1.04) mg/dL Estimated GFR (>60) mL/min BUN/Creatinine Ratio (6-22) Glucose (80-110) mg/dL Lactate (0.7-2.1) mmol/L Calcium (8.4-10.2) mg/dL Magnesium (1.6-2.3) mg/dL Total Bilirubin (0.2-1.3) mg/dL AST (14-36) IU/L ALT (<35) IU/L Alkaline Phosphatase (38-126) U/L Total Creatine Kinase (30-135) U/L CK-MB (CK-2) CK-MB (CK-2) Rel Index Troponin I 0.045 H (0.01-0.034) ng/mL NT-Pro-B Natriuret Pep (<450) pg/mL Total Protein (6.3-8.2) g/dL Albumin (3.5-5.0) g/dL Globulin (1.7-4.1) g/dL Albumin/Globulin Ratio (1.0-2.8) Lipase (23-300) U/L Procalcitonin 0.06 (<0.5) ng/mL SARS-CoV-2 (PCR) Negative (Negative) 12/30/22 Range/Units 20:26 WBC (4.5-11.0) X10^3/uL RBC (4.0-5.2) X10^6/uL Hgb (12.0-16.0) g/dL Hct (36-46) % MCV (80-100) fL MCH (26-34) PG MCHC (30-36) % RDW (11.6-14.8) % Plt Count (150-400) X10^3/uL Neut % (Auto) (50-75) % Lymph % (Auto) (25-40) % Hall % (Auto) (3-14) % Eos % (Auto) (2-4) % Baso % (Auto) (0-2) % Neut # (Auto) (3667-3673) /uL Lymph # (Auto) (0864-0282) /uL Hall # (Auto) (0-900) /uL Eos # (Auto) (0-450) /uL Baso # (Auto) (0-100) /uL PT (10.1-12.7) SECONDS INR (0.9-1.3) APTT 30 (26-36) SECONDS D-Dimer (<500) ng/ml Sodium (137-145) mmol/L Potassium (3.4-5.1) mmol/L Chloride (98-107) mmol/L Carbon Dioxide (22-32) mmol/L BUN (7-17) mg/dL Creatinine (0.52-1.04) mg/dL Estimated GFR (>60) mL/min BUN/Creatinine Ratio (6-22) Glucose (80-110) mg/dL Lactate (0.7-2.1) mmol/L Calcium (8.4-10.2) mg/dL Magnesium (1.6-2.3) mg/dL Total Bilirubin (0.2-1.3) mg/dL AST (14-36) IU/L ALT (<35) IU/L Alkaline Phosphatase (38-126) U/L Total Creatine Kinase (30-135) U/L CK-MB (CK-2) CK-MB (CK-2) Rel Index Troponin I (0.01-0.034) ng/mL NT-Pro-B Natriuret Pep (<450) pg/mL Total Protein (6.3-8.2) g/dL Albumin (3.5-5.0) g/dL Globulin (1.7-4.1) g/dL Albumin/Globulin Ratio (1.0-2.8) Lipase (23-300) U/L Procalcitonin (<0.5) ng/mL SARS-CoV-2 (PCR) (Negative) Imaging Data Chest x-ray: Radiologist's Impression: No pneumo, no cardiomegaly, poor inspiratory effort, patient does appear to have currently be and signs of pulmonary edema. Close Chest X-Ray (Signed) Jorge Gardner - 12/30/22 Telemetry Strips 08/21/19 Radiology Report (Cancelled) Jael Baxter - 05/06/19 Myocardial Perfusion Scan Nuc Med (Signed) Vladimir Baxteru - 05/06/19 Myocardial Perfusion Scan Nuc Med (Signed) Dago Armijo - 08/11/18 Myocardial Perfusion Scan Nuc Med (Cancelled) 08/11/18 Pulmonary Function Test 02/01/18 Launch?[place] [address] XRay Report Signed Patient: Daphne Palomino MR#: [id number] : 1945 Acct:[id number] Age/Sex: 77 / F Date of Service: 12/30/22 Loc: ED Accession Number: [id number] ?? Procedure: XR chest 1V Ordering Provider: Eris Ferrara MD PROCEDURE:? XR CHEST 1V ? INDICATIONS:? chest pain ? TECHNIQUE:? One view of the chest was acquired.? ? COMPARISON:? [facility], CHEST 2 VIEW, 12/27/2017, 10:42. ? FINDINGS:? ? Surgical changes and devices:? None.? ? Lungs and pleura:? Mild patchy diffuse reticulonodular pulmonary opacity.? No pleural effusions or pneumothorax.? ? Mediastinum:? Mediastinal contours appear normal.? Heart size is normal.? ? Bones and chest wall:? No suspicious bony lesions.? Overlying soft tissues appear unremarkable.? ? IMPRESSION:? Mild atypical pneumonia. ? ? Dictated by: Jorge Gardner M.D. on 12/30/2022 at 17:58 ? ? Approved by: Jorge Gardner M.D. on 12/30/2022 at 17:58?? ECG Data Attestation: I personally reviewed and interpreted this ECG as follows: Prior ECG tracings: available for review Interpretation: Sinus rhythm occasional PVC rate of 94 HI, 194, QRS of 92 and QTC 475. Patient has left axis deviation, she has Q-waves in 3 and AVF which are present on prior from 12/15/2013 with some nonspecific change but no other acute ST elevation depression appreciated. EKG 2. Sinus rhythm, looks at deviation, rate of 84, P are 202 QRS of 92 QT 463. No dynamic changes appreciated. MDM Narrative Medical decision making narrative: This is a 77-year-old female who comes in with complaint of shortness of breath, chest pressure is quite hypertensive upon arrival, EKG has some nonspecific change but no acute ST elevation or depression, patient has had intermittent chest pressure today along with her shortness of breath which has been slowly increasing over time with hypoxia. Patient's CBC, coags and CMP did not show clear cause, LFTs are negative initial troponin is indeterminate at 0.04, BNP is 11 90. Chest x-ray shows changes consistent with some pulmonary edema. Patient was given aspirin, nitro which did improve patient's chest pain as well as blood pressure. Patient's dimer which was added on was quite elevated. She was sent for CT PE which found bilateral pulmonary emboli, no pneumonia appreciated. No pulmonary infarct, imaging does not suggest right heart strain but has extensive bilateral PE segmental and subsegmental with an all lobes. PESI score is 109. Repeat troponin and EKG show slight trend up at 0.045 on repeat, EKG does not have any dynamic changes. Case discussed with hospitalist service, Dr. Brink who accepts for admission. Discharge Plan Departure Patient Disposition: Admitted As Inpatient Clinical Impression: Pulmonary embolism Admit Date/Time: 12/30/22 21:04 Admit Provider: Jasson Brink
[2022-12-30] MEDS: ASPIRIN 81 MG CHEW TAB 324 MG PO (19:22)
[2022-12-30] MEDS: NITROGLYCERIN 0.4 MG SL TAB SL ×3 (19:23→19:35)
[2022-12-30 19:37] LABS: D Dimer 3308 ng/ml (<500)
--- NOTE | 2022-12-30 19:45 | DI.CT.S_ITS ---
PROCEDURE: CT ANGIO CHEST PE PROTOCOL INDICATIONS: chest pain TECHNIQUE: After the administration of intravenous contrast, 2 mm thick sections acquired from the pulmonary apices to the posterior costophrenic angles. 3-dimensional maximum intensity projection (MIP) coronal and sagittal reformats were then acquired through the thorax. For radiation dose reduction, the following was used: automated exposure control, adjustment of mA and/or kV according to patient size. COMPARISON: [facility], CT, PE STUDY (CTA CHEST), 06/29/2007, 15:45. [facility], CR, XR CHEST 1V, 12/30/2022, 17:35. FINDINGS: Image quality: Excellent. Pulmonary arteries: There are multiple filling defects within segmental and subsegmental pulmonary arteries within all lobes consistent with pulmonary embolism. The pulmonary arteries are enlarged, measuring up to 3.4 cm. No definite leftward deviation of the interventricular septum. Lower Neck: No lymphadenopathy by size criteria. Thyroid: Visualized thyroid demonstrates no discrete nodules. Axillae: No lymphadenopathy by size criteria. Chest Wall: Unremarkable. Bones: Visualized osseous structures demonstrate no suspicious lesions. Lungs and Airways: No acute consolidation. There are linear opacities in the lung bases consistent with atelectasis. No definite pulmonary infarcts. The trachea and central airways are patent. Pleura: No pneumothorax or pleural effusions. Heart: Heart size is normal. No pericardial effusion. Thoracic Vessels: The thoracic aorta is normal in size. Mediastinum and [place]: No lymphadenopathy by size criteria. Esophagus: No wall thickening. No hiatal hernia. Abdomen: Visualized upper abdomen demonstrates reflux of contrast into the inferior vena cava and hepatic veins suggestive of elevated right heart filling pressures. IMPRESSION: 1. Extensive bilateral pulmonary embolism involving segmental and subsegmental pulmonary arteries within all lobes. There is enlargement of the pulmonary arteries without leftward deviation of the interventricular septum to suggest definite right heart strain. Findings discussed with Dr. Smith on 12/30/2022 at 8:36 p.m.. Dictated by: Torres Lomeli M.D. on 12/30/2022 at 20:32 Approved by: Torres Lomeli M.D. on 12/30/2022 at 20:41
[2022-12-30 19:53] LABS: Troponin I 0.045 ng/mL (0.01-0.034)
[2022-12-30 20:08] LABS: Lactate (Lactic Acid) 2.1 mmol/L (0.7-2.1)
[2022-12-30] MEDS: FUROSEMIDE 40 MG/4 ML VIAL IV (20:24)
[2022-12-30] MEDS: cefTRIAXone 2,000 MG in SODIUM CHLORIDE 0.9% 100 ML 200 MG IV (20:24)
[2022-12-30 20:25] LABS: Procalcitonin 0.06 ng/mL (<0.5)
[2022-12-30] MEDS: HEPARIN 5,000 UNIT/ML VIAL 7500 UNIT IV (20:40)
[2022-12-30] MEDS: HEPARIN DRIP 25,000 UNIT/500 ML IV.SOLN 20 UNIT IV (20:45)
[2022-12-30 21:57] LABS: PTT Partial Thromboplastin Tim 30 SECONDS (26-36)
[2022-12-30 21:58] LABS: Reflexed Lactate in 2 Hours Y
[2022-12-30 23:13] LABS: MRSA (Nasal) PCR Not Detected (Not Detect)
[2022-12-31] VITALS (56 sets, daily range): BP systolic 102–224; BP diastolic 62–101; PULSE 56–92; RESP 14–40; TEMP 35.9–36.6; O2SAT 86–95
[2022-12-31] MEDS: HYDROCODONE/ACET 5/325 TABLET 1 TAB PO (00:14)
[2022-12-31] MEDS: MAGNESIUM OXIDE 400 MG TABLET PO ×2 (00:38→08:14)
[2022-12-31 03:05] LABS: Hematocrit 41.4 % (36-46); Hemoglobin 13.8 g/dL (12.0-16.0); Platelet Count 198 X10^3/uL (150-400)
[2022-12-31 03:16] LABS: PTT Partial Thromboplastin Tim 71 SECONDS (26-36)
[2022-12-31 03:18] LABS: Lactate 2HR (Lactic Acid Rflx) 1.6 mmol/L (0.7-2.1)
[2022-12-31] MEDS: HYDROCODONE/ACET 5/325 TABLET 2 TAB PO ×4 (04:31→20:05)
--- NOTE | 2022-12-31 07:41 | P.HP_ITS ---
History of Present Illness History of Present Illness Date Patient Seen: 12/31/22 Time Patient Seen: 07:41 Chief complaint: difficulty breathing Narrative: 74-year-old female well known to me presented to the emergency department with progressive shortness of breath some chest discomfort and notable hypertension. ER evaluation ultimately discovered bilateral extensive pulmonary emboli without evidence of right heart failure or strain. Patient had driven back from [place] without really stopping very long in early October so about 6 weeks prior. She is unclear as to when her symptoms began but probably shortly thereafter she thinks. Has had some increased lower extremity edema noted both upon her drive down to [place] in August as upon the return in October She was minimally hypoxic and admitted after being started on intravenous unfractionated heparin. In addition she had borderline troponins although ECG was without change from baseline [facility] Medical History Chronic pain syndrome (04/14/11) Chronic renal failure, stage 3a Gout History of adenomatous polyp of colon (04/07/16) Hyperlipidemia Hypertension Osteoarthritis Uncomplicated opioid dependence Surgical History Anesthesia History of back surgery History of cholecystectomy History of knee replacement History of surgery S/P total abdominal hysterectomy and bilateral salpingo-oophorectomy Status post appendectomy Family History Grandfather Family history of diabetes mellitus (DM) Social History marital status: number of children: 2 household members: spouse lives independently: Yes caregiver/support person: No housing: house pets and animals: No education level: college occupational status: employed (Self Employed) current occupational exposures/hazards: No leisure activities: games (Bridge) and other (Boating, Traveling) Smoking Status: Never smoker Tobacco: How many years used: 0 quit status: quit date established (Never Started) second hand exposure: Yes (Past) alcohol intake: current substance use type: does not use Meds Home Medications and Allergies Home Medications Medication Instructions Recorded Confirmed Type CA PANTOTHENATE/FOLIC ACID/VIT 1 tab PO QDAY #0 tabs 05/16/13 12/30/22 History (MULTIVITAMIN) CHOLECALCIFEROL (VITAMIN D3) 400 unit PO QDAY #0 tabs 05/16/13 12/30/22 History (Vitamin D3) VITAMIN B COMPLEX (Vitamin B 1 tab PO QDAY #0 tabs 05/16/13 12/30/22 History Complex) ascorbic acid (vitamin C) 500 mg 500 mg PO QDAY #0 tabs 05/16/13 12/30/22 History tablet lisinopril 40 mg tablet 40 mg PO BID #180 tabs 10/09/21 12/30/22 Rx Disabled Parking #1 ea 04/27/22 09/07/22 Rx diazepam 5 mg tablet 5 mg PO Q8H PRN anxiety #180 tabs 05/01/22 12/30/22 Rx pregabalin 150 mg capsule (Lyrica) 150 mg PO BID #180 caps 08/14/22 12/30/22 Rx furosemide 40 mg tablet See Rx Instructions .Route 08/17/22 12/30/22 Rx .COMPLEX #180 tabs omeprazole 20 mg capsule,delayed 20 mg PO BID #180 caps 08/25/22 12/30/22 Rx release metoprolol tartrate 100 mg tablet 150 mg PO BID #270 tabs 09/07/22 12/30/22 Rx (Lopressor) hydrocodone 10 mg-acetaminophen 1 - 2 tab PO Q4H PRN pain in 12/15/22 12/30/22 Rx 325 mg tablet joints #360 tabs celecoxib 200 mg capsule 200 mg PO DAILY 12/30/22 12/30/22 History Allergies Allergy/AdvReac Type Severity Reaction Status Date / Time duloxetine AdvReac Mild sedation Verified 09/07/22 14:33 Review of Systems Review of Systems ROS: Yes All systems reviewed with the patient and are negative except as otherwise documented Exam Vital Signs (past 8 hours): - 12/31/22 05:18 12/31/22 01:45 12/31/22 00:00 Temperature Pulse Rate 83 Respiratory Rate 21 Blood Pressure Pulse Oximetry 91 Oxygen Delivery Method Room Air Room Air 12/31/22 00:03 12/31/22 00:03 12/31/22 01:00 Temperature Pulse Rate 83 78 Respiratory Rate 28 H 24 Blood Pressure 182/93 H Pulse Oximetry 92 91 Oxygen Delivery Method 12/31/22 02:00 12/31/22 02:30 12/31/22 03:00 Temperature Pulse Rate 82 77 77 Respiratory Rate 25 H 26 H 27 H Blood Pressure Pulse Oximetry 93 92 93 Oxygen Delivery Method 12/31/22 03:11 12/31/22 03:11 12/31/22 03:30 Temperature Pulse Rate 75 72 75 Respiratory Rate 26 H 25 H 21 Blood Pressure 171/85 H Pulse Oximetry 92 94 94 Oxygen Delivery Method 12/31/22 04:00 12/31/22 04:00 12/31/22 04:03 Temperature Pulse Rate 77 79 Respiratory Rate 25 H 35 H Blood Pressure 192/88 H Pulse Oximetry 93 93 Oxygen Delivery Method 12/31/22 04:03 12/31/22 04:30 12/31/22 05:00 Temperature Pulse Rate 78 Respiratory Rate 27 H Blood Pressure 183/86 H 196/85 H Pulse Oximetry 94 Oxygen Delivery Method 12/31/22 05:00 12/31/22 05:06 12/31/22 05:06 Temperature 97.7 F Pulse Rate 79 78 Respiratory Rate 24 27 H Blood Pressure 187/88 H Pulse Oximetry 93 94 Oxygen Delivery Method 12/31/22 05:30 12/31/22 06:00 12/31/22 06:01 Temperature Pulse Rate 79 77 Respiratory Rate 21 16 Blood Pressure 161/76 H Pulse Oximetry 90 L 89 L Oxygen Delivery Method 12/31/22 06:01 12/31/22 06:30 12/31/22 07:00 Temperature Pulse Rate 79 78 76 Respiratory Rate 14 15 15 Blood Pressure Pulse Oximetry 89 L 91 92 Oxygen Delivery Method Oxygen Delivery Method Room Air Narrative Exam Narrative: Elderly female in no obvious distress sitting up in bed able to talk in full sentences does not appear to have any respiratory symptoms HEENT-unremarkable Neck-no bruits Lungs-good breath sounds no wheezes no crackles Heart-regular rate and rhythm, normal S1-S2 Abdomen-positive bowel tones, soft nontender nondistended, size limits exam however but no organomegaly noted Extremities-trace edema pretibially bilaterally Neuro-alert orient x3 no focal findings. Gait not tested. Objective Labs 12/31/22 02:45 12/30/22 17:05 Labs: Laboratory Results - last 24 hr 12/30/22 12/30/22 12/30/22 17:05 17:05 17:05 WBC 11.3 H RBC 4.67 Hgb 14.2 Hct 42.7 MCV 91.4 MCH 30.4 MCHC 33.2 RDW 13.8 Plt Count 220 Neut % (Auto) 73.3 Lymph % (Auto) 18.8 L Chambers % (Auto) 6.1 Eos % (Auto) 1.4 L Baso % (Auto) 0.4 Neut # (Auto) 8300 H Lymph # (Auto) 2100 Chambers # (Auto) 700 Eos # (Auto) 200 Baso # (Auto) 0 PT 12.1 INR 1.1 APTT 31 D-Dimer Sodium 141 Potassium 3.5 Chloride 99 Carbon Dioxide 32 BUN 21 H Creatinine 0.81 Estimated GFR > 60 BUN/Creatinine Ratio 25.9 H Glucose 157 H Lactate Calcium 9.8 Magnesium 1.8 Total Bilirubin 0.5 AST 27 ALT 25 Alkaline Phosphatase 122 Total Creatine Kinase 47 CK-MB (CK-2) TNP CK-MB (CK-2) Rel Index TNP Troponin I 0.040 H NT-Pro-B Natriuret Pep Total Protein 8.4 H Albumin 4.4 Globulin 4.0 Albumin/Globulin Ratio 1.1 Lipase 100 Procalcitonin Nasal Screen MRSA (PCR) SARS-CoV-2 (PCR) 12/30/22 12/30/22 12/30/22 17:05 17:05 17:05 WBC RBC Hgb Hct MCV MCH MCHC RDW Plt Count Neut % (Auto) Lymph % (Auto) Chambers % (Auto) Eos % (Auto) Baso % (Auto) Neut # (Auto) Lymph # (Auto) Chambers # (Auto) Eos # (Auto) Baso # (Auto) PT INR APTT D-Dimer 3308 H Sodium Potassium Chloride Carbon Dioxide BUN Creatinine Estimated GFR BUN/Creatinine Ratio Glucose Lactate 2.1 Calcium Magnesium Total Bilirubin AST ALT Alkaline Phosphatase Total Creatine Kinase CK-MB (CK-2) CK-MB (CK-2) Rel Index Troponin I NT-Pro-B Natriuret Pep 1190 H Total Protein Albumin Globulin Albumin/Globulin Ratio Lipase Procalcitonin Nasal Screen MRSA (PCR) SARS-CoV-2 (PCR) 12/30/22 12/30/22 12/30/22 17:05 17:43 19:16 WBC RBC Hgb Hct MCV MCH MCHC RDW Plt Count Neut % (Auto) Lymph % (Auto) Chambers % (Auto) Eos % (Auto) Baso % (Auto) Neut # (Auto) Lymph # (Auto) Chambers # (Auto) Eos # (Auto) Baso # (Auto) PT INR APTT D-Dimer Sodium Potassium Chloride Carbon Dioxide BUN Creatinine Estimated GFR BUN/Creatinine Ratio Glucose Lactate Calcium Magnesium Total Bilirubin AST ALT Alkaline Phosphatase Total Creatine Kinase CK-MB (CK-2) CK-MB (CK-2) Rel Index Troponin I 0.045 H NT-Pro-B Natriuret Pep Total Protein Albumin Globulin Albumin/Globulin Ratio Lipase Procalcitonin 0.06 Nasal Screen MRSA (PCR) SARS-CoV-2 (PCR) Negative 12/30/22 12/30/22 12/31/22 20:26 21:56 02:45 WBC RBC Hgb Hct MCV MCH MCHC RDW Plt Count Neut % (Auto) Lymph % (Auto) Chambers % (Auto) Eos % (Auto) Baso % (Auto) Neut # (Auto) Lymph # (Auto) Chambers # (Auto) Eos # (Auto) Baso # (Auto) PT INR APTT 30 D-Dimer Sodium Potassium Chloride Carbon Dioxide BUN Creatinine Estimated GFR BUN/Creatinine Ratio Glucose Lactate 1.6 Calcium Magnesium Total Bilirubin AST ALT Alkaline Phosphatase Total Creatine Kinase CK-MB (CK-2) CK-MB (CK-2) Rel Index Troponin I NT-Pro-B Natriuret Pep Total Protein Albumin Globulin Albumin/Globulin Ratio Lipase Procalcitonin Nasal Screen MRSA (PCR) Not detected SARS-CoV-2 (PCR) 12/31/22 12/31/22 02:45 02:45 WBC RBC Hgb 13.8 Hct 41.4 MCV MCH MCHC RDW Plt Count 198 Neut % (Auto) Lymph % (Auto) Chambers % (Auto) Eos % (Auto) Baso % (Auto) Neut # (Auto) Lymph # (Auto) Chambers # (Auto) Eos # (Auto) Baso # (Auto) PT INR APTT 71 H D D-Dimer Sodium Potassium Chloride Carbon Dioxide BUN Creatinine Estimated GFR BUN/Creatinine Ratio Glucose Lactate Calcium Magnesium Total Bilirubin AST ALT Alkaline Phosphatase Total Creatine Kinase CK-MB (CK-2) CK-MB (CK-2) Rel Index Troponin I NT-Pro-B Natriuret Pep Total Protein Albumin Globulin Albumin/Globulin Ratio Lipase Procalcitonin Nasal Screen MRSA (PCR) SARS-CoV-2 (PCR) Assessment & Plan Assessment & Plan narrative: 1. Pulmonary embolism, probably provoked by extended drive from [place]-at this point patient has been started on unfractionated heparin infusion given the extensive nature of her emboli on imaging. This point once she begins to improve we can likely switch her to a direct oral anticoagulant She most likely sustained a DVT due to the prolonged immobility of driving back from [place], and to that and I am going to go ahead and do an ultrasound of her lower extremities looking for DVT. Given the extensive nature of her clot however I would recommend evaluation for a hypercoagulable state as well. The other concern of course would be some undiagnosed malignancy. At this point do not have any evidence of that. Patient had colonoscopy in 2019 that did identify tubular adenoma. Not had mammography in the last several years. Is status post bilateral salpingo-oophorectomy. However given what appears to be the nature of her venous thromboembolism with the fairly recent extended drive over the course of several days that is much more likely etiology than an undiagnosed malignancy at this point especially given screening test she has undergone. At this point I am not going to proceed with further evaluation for possible malignancy. I am going to go ahead and get an echocardiogram as well given the extensive nature of her clot. 2. Borderline troponin-likely secondary to strain from the extensive pulmonary emboli. Patient did have negative cardiac stress testing in 2019 as well that include myocardial perfusion imaging. I think she is low risk for atherosclerotic disease as a source of any of her symptoms or abnormal labs etcetera 3. Hypertension-continue patient's usual meds and re-evaluate as we treat her PEs 4. Chronic renal failure stage 3 a-patient's numbers are actually much better than usual. I think she would be a reasonable candidate for direct oral anticoagulant 5. Chronic back pain-patient with multiple back surgeries and chronic back pain chronically on opiate narcotics as well for this. Continue with her usual meds for now 6. VTE prophylaxis-obviously patient has been diagnosed with a venous thromboembolism and is actively being treated with full-dose anticoagulation which will continue 7. Code status-patient requests a full code in the event of a sudden cardiac or respiratory arrest which is entirely appropriate and not at all anticipated at this point. COVID-19 COVID-19 status: Negative Result date/Date tested (Pos, Neg/Pending): 12/30/22 Quality VTE Deep Vein Thrombosis/Pulmonary Embolism Present on Admission: No
--- NOTE | 2022-12-31 08:09 | DI.ECHO.S_ITS ---
[place] [facility]---------+ [facility] +---------+ : : [address] : : : : [id number] : : : : Phone: [phone] Echocardiogram Report + + :Name: JONATHAN GUTIÉRREZ Study Date: 12/31/2022 Height: 69 in : :[facility] ReadingLocation: Weight: 255 lb : : Gender: Female BSA: 2.3 m2 : :: 1945 Age: 77 yrs BP: 161/76 mmHg: :Reason For Study: PULMONARY EMBOLISM : :Ordering Physician: JAVON, : :HANDY Paiz Performed By: Leanne Haji : :Referring: HANDY ALEJANDRO : + + Interpretation Summary 1) Normal left ventricular size and thickness with moderately reduced systolic function (EF 35-40%). 2) Normal right ventricular size with mildly reduced function. 3) There is mild to moderate aortic regurgitation. 4) No prior echo available for comparison. Procedure: A two-dimensional transthoracic echocardiogram with color flow and Doppler was performed. The study quality was technically adequate. The patient had an echocardiogram, but there is no comparison study available. The patient was in sinus bradycardia with heart rates between 63-71 bpm during the exam. Left Ventricle: The left ventricle is normal in size and wall thickness. The ejection fraction is estimated to be 35-40%. There is moderate global hypokinesis of the left ventricle. Diastolic parameters suggest a relaxation abnormality of the left ventricle, consistent with probable normal filling pressures. Right Ventricle: The right ventricle is normal size. Right ventricular systolic function is mildly reduced. Atria: The left atrial size is normal. Right atrial size is normal. There is no Doppler evidence for an interatrial shunt. Mitral Valve: The mitral valve leaflets appear mildly thickened, but open well. There is mild mitral regurgitation. Aortic Valve: The aortic valve is trileaflet. The aortic valve opens well. There is no aortic valve stenosis. There is mild to moderate aortic regurgitation. Tricuspid Valve: The tricuspid valve is normal in structure and function. There is mild tricuspid regurgitation. Right ventricular systolic pressure is estimated to be 30 mmHg plus the clinically estimated CVP which cannot be estimated on this exam. Pulmonic Valve: The pulmonic valve leaflets are thin and pliable; valve motion is normal. There is mild to moderate pulmonic regurgitation. Great Vessels: The aortic root is normal size. The dimensions of the ascending aorta are normal. The inferior vena cava was not well visualized. Pericardium/ Pleura There is no pericardial effusion. There is no pleural effusion. MMode/2D Measurements & Calculations LVIDd: 4.8 cm LVOT diam: 2.0 cm LVIDs: 3.8 cm Ao root diam: 3.3 cm FS: 21.3 % asc Aorta Diam: 3.8 cm IVSd: 0.95 cm Ao Arch Diam (Prox Trans): 3.3 cm LVPWd: 0.72 cm LV jimenez. diameter/BSA (cm/m^2): 2.1 LV sys. diameter/BSA (cm/m^2): 1.7 LA A2 area: 21.0 cm2 RA long axis: 4.6 cm LA A4 area: 18.6 cm2 RA area: 14.6 cm2 LA length (vol): 5.5 cm RA vol: 39.2 ml LA vol: 60.3 ml RA : 17.1 ml/m2 LA vol index: 26.3 ml/m2 RVD1 (basal): 3.7 cm RVD2 (mid): 2.8 cm TAPSE: 1.3 cm Doppler Measurements & Calculations Ao V2 max: 158.6 cm/sec LVOT Max Norman: 93.6 cm/sec Ao V2 mean: 114.3 cm/sec LV V1 max P.5 mmHg Ao max P.1 mmHg LV V1 VTI: 20.6 cm Ao mean P.7 mmHg CHUY(I,D): 1.9 cm2 Ao V2 VTI: 34.8 cm CHUY(V,D): 1.9 cm2 sev ratio: 0.59 CHUY indexed to BSA (cm^2/m^2): 0.83 AI P1/2t: 870.4 msec AI dec slope: 138.1 cm/sec2 MV E max norman: 41.7 cm/sec TR max norman: 267.8 cm/sec MV A max norman: 94.6 cm/sec TR max P.7 mmHg MV E/A: 0.44 PA V2 max: 91.5 cm/sec Med Peak E' Norman: 3.6 cm/sec PA V2 mean: 58.8 cm/sec E/E' med: 11.5 PA mean P.6 mmHg Lat Peak E' Norman: 3.4 cm/sec PA pr(Accel): 39.6 mmHg E/E' lat: 12.1 E/e' average: 11.8 MV dec time: 0.19 sec SVLVOT): 65.8 ml Reading Physician:04:22 PM
--- NOTE | 2022-12-31 08:10 | DI.US.S_ITS ---
PROCEDURE: US PERIPH VENOUS LOW EXTREM BI INDICATIONS: PULMONARY EMBOLISM TECHNIQUE: Real-time imaging, as well as color and pulse Doppler interrogation, were performed of the deep veins of both legs from the inguinal ligament to the popliteal fossa. COMPARISON: [facility], CT, CT ANGIO CHEST PE PROTOCOL, 12/30/2022, 19:51. FINDINGS: Right: The common femoral, femoral and popliteal veins are normally compressible, and free of intraluminal thrombus. Color and pulse Doppler demonstrate normal phasic intravascular flow. There is normal augmentation response to distal compression maneuver. Left: The common femoral, femoral and popliteal veins are normally compressible, and free of intraluminal thrombus. Color and pulse Doppler demonstrate normal phasic intravascular flow. There is normal augmentation response to distal compression maneuver. IMPRESSION: No lower extremity DVT demonstrated. Dictated by: Carlos Hwang M.D. on 12/31/2022 at 8:55 Approved by: Carlos Hwang M.D. on 12/31/2022 at 8:56
[2022-12-31] MEDS: lisinopriL 20 MG TABLET 40 MG PO (08:14)
[2022-12-31] MEDS: FUROSEMIDE 40 MG TABLET PO (08:14)
[2022-12-31] MEDS: CHOLECALCIFEROL (VITAMIN D3) 400 UNIT TABLET PO (08:14)
[2022-12-31] MEDS: METOPROLOL IR 50 MG TABLET 150 MG PO ×2 (08:14→20:04)
[2022-12-31] MEDS: PREGABALIN 75 MG CAPSULE 150 MG PO (08:15)
[2022-12-31] MEDS: PANTOPRAZOLE DR 20 MG TABLET PO ×2 (08:15→20:05)
[2022-12-31 09:58] LABS: PTT Partial Thromboplastin Tim 48 SECONDS (26-36)
--- NOTE | 2022-12-31 11:07 | CM.DANOTE ---
DCP: Case received, EMR reviewed and met with patient. Spouse, Francisco, was at bedside. Introduced self and role. Was able to obtain information regarding patient's baseline activity status prior to hospitalization. DCP assessment completed with information currently available. Patient is a 77 year old female who admitted yesterday evening to the care of the hospitalist team. PCP: Dr. Soto. Payer: confirmed: [facility] [employer]. Patient came to the hospital via private vehicle secondary to having increased shortness of breath. Patient had also mentioned chest discomfort', as well as HTN. Notes indicate that patient had been traveling back from [place] in their RV. Patient had also noted increased pulmonary edema. Patient was diagnosed with pulmonary embolism. She is currently getting heparin drip. Met with patient in her room, and spouse, Francisco, was at bedside. Confirmed that she resides here in [place] with spouse. They were both on their way back from [place], for she indicated that they go down their for patient's dental care. She is independent at her baseline, uses no DME. P: DCP to continue to follow. Patient should be able to go home when deemed medically stable. Melva Jacobson RN/Loaf Counter Discharge Planning/Care Management CM Discharge Assessment Start: 12/31/22 11:05 Freq: Status: Active Protocol: Document 12/31/22 11:06 (Rec: 12/31/22 11:07 [id number]) Discharge Planning Assessment Assigned Health Program Director Melva Jacobson RN/Loaf Counter Advance Directives? No History Provided By Patient,Medical Record Prior Living Arrangements House Comment one step into entrance Household Members spouse Type of transporation used prior to Drives own vehicle admit Independent with ADL's Yes Is patient alert and oriented? Yes Caregiver for Another No Barriers to Discharge No Discharge Plan Home Transportation Arrangement Spouse Referrals Initiated None needed Whiteboard Updated in Patient Room with Yes name and ext. # of Health Program Director Review Status In Process Next Review Type Continued Stay Review
[2022-12-31] MEDS: diazePAM 5 MG TABLET PO (14:25)
[2022-12-31] MEDS: HEPARIN DRIP 25,000 UNIT/500 ML IV.SOLN 22 UNIT IV (17:11)
[2022-12-31 17:17] LABS: PTT Partial Thromboplastin Tim 53 SECONDS (26-36)
[2022-12-31 23:45] LABS: PTT Partial Thromboplastin Tim 55 SECONDS (26-36)
[2023-01-01] VITALS (14 sets, daily range): BP systolic 143–171; BP diastolic 74–88; PULSE 58–71; RESP 13–21; TEMP 36–36.1; O2SAT 89–94
[2023-01-01] MEDS: HEPARIN 5,000 UNIT/ML VIAL 2000 UNIT IV (00:09)
[2023-01-01] MEDS: HYDROCODONE/ACET 5/325 TABLET 2 TAB PO ×2 (01:11→06:10)
[2023-01-01] MEDS: PANTOPRAZOLE DR 20 MG TABLET PO (06:06)
[2023-01-01 06:28] LABS: Hematocrit 40.6 % (36-46); Hemoglobin 13.7 g/dL (12.0-16.0); Platelet Count 198 X10^3/uL (150-400)
[2023-01-01 06:49] LABS: PTT Partial Thromboplastin Tim 80 SECONDS (26-36)
--- NOTE | 2023-01-01 08:24 | P.DS_ITS ---
History of Present Illness History of Present Illness Date Patient Seen: 01/01/23 Time Patient Seen: 08:24 Chief complaint: difficulty breathing Narrative: 74-year-old female well known to me presented to the emergency department with progressive shortness of breath some chest discomfort and notable hypertension. ER evaluation ultimately discovered bilateral extensive pulmonary emboli without evidence of right heart failure or strain. Patient had driven back from [place] without really stopping very long in early October so about 6 weeks prior. She is unclear as to when her symptoms began but probably shortly thereafter she thinks. Has had some increased lower extremity edema noted both upon her drive down to [place] in August as upon the return in October She was minimally hypoxic and admitted after being started on intravenous unfractionated heparin. In addition she had borderline troponins although ECG was without change from baseline Discharge Providers Provider Date of admission: 12/30/22 21:04 Discharge Date: 01/01/23 Primary care physician: Oskar Soto MD Discharge provider: Oskar Soto MD Summary Hospital Course Discharge Diagnosis: 1. Extensive bilateral pulmonary emboli 2. Chronic renal failure stage 3 a 4. Hypertension 5. Cardiomyopathy with left ventricular ejection fraction 35-40% with global hypokinesis 6. Hyperlipidemia 7. Chronic back pain Hospital Course: Patient was admitted after presenting to the ER as noted above. She was placed on intravenous unfractionated heparin. She had improvement in her overall status with decreasing blood pressure and improvement in her hypoxia. Subsequent testing demonstrated no evidence of significant cardiac effect based on echocardiography. She did have a newly diagnosed left ventricular cardiomyopathy showing global hypokinesis with left ventricular ejection fraction of about 40%. Ultrasound of lower extremities was performed looking for DVT given her history of extended car ride but no DVT was noted She continued to be improved with improved blood pressure etcetera. She was felt therefore to be stable for discharge home to continue on a direct oral anticoagulant to replace the parental heparin. Eliquis is approved for this use and was prescribed. She will continue on the starting dose of 10 mg b.i.d. for 1 week and then dropped to 5 mg b.i.d. following that Patient will also need to discontinue her Celebrex and this was discussed with her Her other medications can be continued Plan at this point is for her to continue anticoagulation for 3 months, unless 1 of her hypercoagulable studies returns abnormal Status at Discharge Cognitive/behavioral status at discharge: oriented Functional status at discharge: independent ambulation Overall status at discharge: patient is progressing back to baseline Exam Vital Signs (past 8 hours): - 01/01/23 00:30 01/01/23 01:00 01/01/23 01:30 Temperature Pulse Rate 61 61 59 L Respiratory Rate 20 18 21 Blood Pressure Pulse Oximetry 90 L 92 93 01/01/23 02:00 01/01/23 02:00 01/01/23 02:06 Temperature 96.8 F L Pulse Rate 60 Respiratory Rate 20 Blood Pressure 156/77 H Pulse Oximetry 92 01/01/23 03:00 01/01/23 03:30 01/01/23 04:00 Temperature Pulse Rate 61 65 Respiratory Rate 15 17 Blood Pressure 155/74 H Pulse Oximetry 90 L 89 L 01/01/23 04:00 01/01/23 04:30 01/01/23 05:00 Temperature Pulse Rate 61 59 L 62 Respiratory Rate 14 13 16 Blood Pressure Pulse Oximetry 89 L 92 90 L 01/01/23 06:00 01/01/23 05:30 01/01/23 06:00 Temperature 97.0 F L Pulse Rate 58 L Respiratory Rate 14 Blood Pressure 160/81 H Pulse Oximetry 92 01/01/23 06:00 Temperature Pulse Rate 63 Respiratory Rate 21 Blood Pressure Pulse Oximetry 94 Oxygen Delivery Method Room Air Objective Labs 01/01/23 06:00 12/30/22 17:05 Labs: Laboratory Results - last 24 hr 12/31/22 12/31/22 12/31/22 09:31 16:50 23:20 Hgb Hct Plt Count APTT 48 H D 53 H 55 H 01/01/23 01/01/23 06:00 06:00 Hgb 13.7 Hct 40.6 Plt Count 198 APTT 80 H* D PFSH Medical History Cardiomyopathy Chronic pain syndrome (04/14/11) Chronic renal failure, stage 3a Gout History of adenomatous polyp of colon (04/07/16) Hyperlipidemia Hypertension Osteoarthritis Uncomplicated opioid dependence Surgical History Anesthesia History of back surgery History of cholecystectomy History of knee replacement History of surgery S/P total abdominal hysterectomy and bilateral salpingo-oophorectomy Status post appendectomy Family History Grandfather Family history of diabetes mellitus (DM) Social History marital status: number of children: 2 household members: spouse lives independently: Yes caregiver/support person: No housing: house pets and animals: No education level: college occupational status: employed (Self Employed) current occupational exposures/hazards: No leisure activities: games (Bridge) and other (Boating, Traveling) Smoking Status: Never smoker Tobacco: How many years used: 0 quit status: quit date established (Never Started) second hand exposure: Yes (Past) alcohol intake: current substance use type: does not use Discharge Plan Discharge Plan Patient Disposition: Home Discharge orders & Medications Prescriptions: New Eliquis 5 mg tablet 10 mg PO BID 7 Days Qty: 28 0RF Eliquis 5 mg tablet 5 mg PO BID Qty: 180 3RF Rx Instructions: start after first week at higher dose (see separate Rx) Continued ascorbic acid (vitamin C) 500 MG tablet 500 mg PO QDAY Qty: 0 CHOLECALCIFEROL (VITAMIN D3) (Vitamin D3) 400 unit PO QDAY Qty: 0 VITAMIN B COMPLEX (Vitamin B Complex) 1 tab PO QDAY Qty: 0 CA PANTOTHENATE/FOLIC ACID/VIT (MULTIVITAMIN) 1 tab PO QDAY Qty: 0 lisinopril 40 mg tablet 40 mg PO BID Qty: 180 3RF Patient Comments: Patient reports Last two weeks my blood pressure has been low so I've only been taking it once a day in the morning. diazepam 5 mg tablet 5 mg PO Q8H PRN (Reason: anxiety) Qty: 180 0RF Lyrica 150 mg capsule 150 mg PO BID Qty: 180 0RF Patient Comments: Patient states she takes this med once a day. furosemide 40 mg tablet See Rx Instructions .ROUTE .COMPLEX Qty: 180 3RF Dose Instruction: TAKE ONE TABLET BY MOUTH 2 TIMES A DAY Rx Instructions: TAKE ONE TABLET BY MOUTH 2 TIMES A DAY omeprazole 20 mg capsule,delayed release(DR/EC) 20 mg PO BID Qty: 180 3RF hydrocodone-acetaminophen 10-325 mg tablet 1 - 2 tab PO Q4H PRN (Reason: pain in joints) Qty: 360 0RF (DME) Disabled Parking See Rx Instructions .ROUTE .MEDSUPPLY Qty: 1 0RF Rx Instructions: Patient qualifies for disabled parking as per the attached form. metoprolol tartrate [Lopressor] 100 mg tablet 150 mg PO BID Qty: 270 3RF Patient Comments: Takes PM dose around 3-4pm. Discontinued celecoxib 200 mg capsule 200 mg PO DAILY Rx Instructions: TAKE 1 CAPSULE BY MOUTH EVERY MORNING WITH FOOD Follow up/Referrals: Oskar Soto MD [Primary Care Provider] - 2 Weeks Discharge Health Status Multidrug resistant organism: No MDRO Diet/Activity/Treatments Diet: Diet as Tolerated Visit Report/Discharge Packet Stand Alone Forms: Patient Portal/API Discharge Data Primary Care Provider: Oskar Soto Quality VTE Deep Vein Thrombosis/Pulmonary Embolism Present on Admission: No
--- NOTE | 2023-01-01 08:42 | CM.DPC ---
DCP Discharge Home Per MD, pt is medically stable to d/c home today with outpt f/u and no identified barriers to discharge. Pt is independent at baseline and has supportive spouse. Per RN, no concerns noted. Plan: Patient to d/c home via spouse POV today and they live in [place] but also winter some down in [place]. No further SW needs at this time. RADHA Sierra
[2023-01-01] MEDS: METOPROLOL IR 50 MG TABLET 150 MG PO (08:48)
[2023-01-01] MEDS: MAGNESIUM OXIDE 400 MG TABLET PO (08:48)
[2023-01-01] MEDS: CHOLECALCIFEROL (VITAMIN D3) 400 UNIT TABLET PO (08:48)
[2023-01-01] MEDS: lisinopriL 20 MG TABLET 40 MG PO (08:48)
[2023-01-01] MEDS: APIXABAN 5 MG TABLET 10 MG PO (08:48)
[2023-01-01] MEDS: FUROSEMIDE 40 MG TABLET PO (08:48)
[2023-01-01] MEDS: PREGABALIN 75 MG CAPSULE 150 MG PO (08:49)
[2023-01-02 21:36] LABS: Protein C-Functional 190 % (73-180); Protein S-Functional 138 % (63-140)
[2023-01-11 09:21] LABS: Factor V Leiden Mutation NEGATIVE
[2023-01-11 13:18] LABS: Cardiolipin IgA Negative (.)
== END 2023-01-01 09:45 | disposition home or self-care (01) | DRG 176 ==
LOC: ED 21:03 → AC 21:05 → ICU 21:46
PROVIDERS: Emergency Medicine; Admitting Provider Family Medicine; Emergency Provider Emergency Medicine; PCP Internal Medicine; Referring Provider Emergency Medicine; Visit Provider Internal Medicine
DX: I26.94 Multiple subsegmental thrombotic pulmonary emboli without acute cor pulmonale (principal); I42.9 Cardiomyopathy, unspecified; M54.9 Dorsalgia, unspecified; G89.29 Other chronic pain; I12.9 Hypertensive chronic kidney disease with stage 1 through stage 4 chronic kidney disease, or unspecified chronic kidney disease; N18.31 Chronic kidney disease, stage 3a; Z20.822 Contact with and (suspected) exposure to COVID-19
CPT/HCPCS: 36415; 71045; 71275; 80053; 81241; 82550; 83520; 83605; 83690; 83735; 83880; 84145; 84484; 85014; 85018; 85025; 85049; 85300; 85303; 85306; 85379; 85610; 85730; 86147; 86148; 87040; 87635; 87797; 93005; 93010; 93306; 93970; 96365; 96367; 96368; 96375; 96376; 99223; 99238; 99284; 99285; C9803; J0696; J1644; J1940; Q9967

== ENCOUNTER 2023-09-02 14:37 | Emergency (ER) | payer OTHER, SELFPAY ==
[2023-01-12 11:14] VITALS: BMI 37.8
[2023-09-02] VITALS (11 sets, daily range): BP systolic 157–194; BP diastolic 73–86; PULSE 74–87; RESP 18–25; TEMP 36.2; O2SAT 91–97; BMI 35.9
--- NOTE | 2023-09-02 14:54 | DI.RAD.S_ITS ---
PROCEDURE: XR CHEST 1V INDICATIONS: Shortness of breath TECHNIQUE: One view of the chest was acquired. COMPARISON: [facility], CR, XR CHEST 1V, 12/30/2022, 17:35. FINDINGS: Surgical changes and devices: None. Lungs and pleura: Lungs are clear. No pleural effusions or pneumothorax. Mediastinum: Mediastinal contours appear normal. Heart size is normal. Bones and chest wall: No suspicious bony lesions. Overlying soft tissues appear unremarkable. IMPRESSION: No acute process. Dictated by: Jorge Gardner M.D. on 09/02/2023 at 15:20 Approved by: Jorge Gradner M.D. on 09/02/2023 at 15:20
[2023-09-02 15:05] LABS: Add Manual Diff / Slide Review NO; Basophils Absolute Auto 100 /uL (0-100); Basophils Percent Auto 1.2 % (0-2); Eosinophils Absolute Auto 100 /uL (0-450); Eosinophils Percent Auto 0.8 % (2-4); Hematocrit 40.1 % (36-46); Lymphocytes Absolute Auto 2200 /uL (1100-4500); Lymphocytes Percent Auto 17.9 % (25-40); Mean Corpuscular HGB Conc 32.5 % (30-36); Mean Corpuscular Hemoglobin 30.4 PG (26-34); Mean Corpuscular Volume 93.4 fL (80-100); Monocytes Absolute Auto 1000 /uL (0-900); Monocytes Percent Auto 8.6 % (3-14); Neutrophils Absolute Auto 8700 /uL (1500-7000); Neutrophils Percent Auto 71.5 % (50-75); Platelet Count 257 X10^3/uL (150-400); Red Blood Cell Count 4.29 X10^6/uL (4.0-5.2); Red Cell Distribution Width 13.6 % (11.6-14.8); White Blood Cell Count 12.1 X10^3/uL (4.5-11.0)
[2023-09-02 15:08] LABS: INR 1.1 (0.9-1.3)
[2023-09-02 15:16] LABS: Lactate (Lactic Acid) 1.5 mmol/L (0.7-2.1)
[2023-09-02 15:17] LABS: Alanine Aminotransferase 24 IU/L (<35); Albumin 4.3 g/dL (3.5-5.0); Alkaline Phosphatase 108 U/L (38-126); Bilirubin Total 1.1 mg/dL (0.2-1.3); Blood Urea Nitrogen 25 mg/dL (7-17); Calcium 10.4 mg/dL (8.4-10.2); Carbon Dioxide 36 mmol/L (22-32); Chloride 92 mmol/L (98-107); Estimated Glomerular Filt Rate 57 mL/min (>60); Globulin 4.2 g/dL (1.7-4.1); Glucose 135 mg/dL (80-110); HEMOLYSIS < 15 (0-50); Potassium 4.1 mmol/L (3.4-5.1); Sodium 135 mmol/L (137-145); Total Protein 8.5 g/dL (6.3-8.2)
[2023-09-02 15:29] LABS: NT-proBNP (BNP-Adult 18+) 144 pg/mL (<450); Troponin I < 0.012 ng/mL (0.01-0.034)
--- NOTE | 2023-09-02 15:43 | ED.GENADULT ---
HPI - General Adult General Chief complaint: Shortness of Breath/Dyspnea Stated complaint: Gout, SOB Time Seen by Provider: 09/02/23 15:32 Source: patient and EMS Mode of arrival: EMS History of Present Illness HPI narrative: Patient is a 77-year-old female who is here for evaluation of shortness of breath and gout. The shortness of breath that she has been having is shortness of breath on exertion that has been going on for the past several weeks/months. She does have history of pulmonary embolism. She has currently not on anticoagulation because she states that 1 of the medicines was too expensive in the other medicine caused her GI issues. She denies any cough. No chest pain. No fevers. No abdominal pain or nausea or vomiting. She was scheduled to see her primary care doctor for this. She was also here for what she states is gout in her left foot. She has had 2 prior episodes of gout. They have been in her feet in the past. She states this feels just like her history of gout. It initially started in her right foot and those symptoms are starting to improve but now it is in the left foot. This is similar to how it has happened in the past. She denies any specific trauma. Related Data Home Medications Medication Instructions Recorded Confirmed CA PANTOTHENATE/FOLIC ACID/VIT 1 tab PO QDAY #0 tabs 05/16/13 03/18/23 (MULTIVITAMIN) CHOLECALCIFEROL (VITAMIN D3) 400 unit PO QDAY #0 tabs 05/16/13 03/18/23 (Vitamin D3) VITAMIN B COMPLEX (Vitamin B 1 tab PO QDAY #0 tabs 05/16/13 03/18/23 Complex) ascorbic acid (vitamin C) 500 mg 500 mg PO QDAY #0 tabs 05/16/13 03/18/23 tablet Previous Rx's Medication Instructions Recorded Disabled Parking #1 ea 04/27/22 omeprazole 20 mg capsule,delayed 20 mg PO BID #180 caps 08/25/22 release metoprolol tartrate 100 mg tablet 150 mg (1.5 x 100 mg) PO BID #270 09/07/22 (Lopressor) tabs lisinopril 40 mg tablet 40 mg PO BID #180 tabs 05/05/23 hydrocodone 10 mg-acetaminophen 1 - 2 tab PO Q4H PRN pain in 08/18/23 325 mg tablet joints #360 tabs furosemide 40 mg tablet See Rx Instructions .Route 08/31/23 .COMPLEX #180 tabs celecoxib 200 mg capsule 200 mg PO DAILY #90 caps 09/01/23 diazepam 5 mg tablet 5 mg PO Q8H PRN anxiety #180 tabs 09/01/23 pregabalin 150 mg capsule (Lyrica) 150 mg PO BID #180 caps 09/01/23 prednisone 20 mg tablet 40 mg (2 x 20 mg) PO DAILY 7 days 09/02/23 #14 tabs Allergies Allergy/AdvReac Type Severity Reaction Status Date / Time duloxetine AdvReac Mild sedation Verified 09/02/23 17:43 Review of Systems Review of Systems ROS Unobtainable: All systems reviewed & are unremarkable except as noted in HPI and below Patient History Medical History Impaired glucose tolerance Cardiomyopathy Chronic renal failure, stage 3a Uncomplicated opioid dependence Osteoarthritis History of adenomatous polyp of colon (04/07/16) Gout Hyperlipidemia Chronic pain syndrome (04/14/11) Hypertension Surgical History Anesthesia History of back surgery History of surgery History of cholecystectomy History of knee replacement Status post appendectomy S/P total abdominal hysterectomy and bilateral salpingo-oophorectomy Family History Grandfather Family history of diabetes mellitus (DM) Social History marital status: number of children: 2 household members: spouse lives independently: Yes caregiver/support person: No housing: house pets and animals: No education level: college occupational status: employed current occupational exposures/hazards: No leisure activities: games and other Smoking Status: Never smoker Tobacco: How many years used: 0 quit status: quit date established second hand exposure: Yes (Past) alcohol intake: current substance use type: does not use Smoking Status: Never smoker alcohol intake frequency: other Substance Use Type: does not use Exam Initial Vital Signs Initial Vital Signs: Vital Signs Temperature 97.1 F L 09/02/23 14:40 Pulse Rate 87 09/02/23 14:40 Respiratory Rate 20 09/02/23 14:40 Blood Pressure 157/78 H 09/02/23 14:40 Pulse Oximetry 92 01/04/24 14:40 Oxygen Delivery Method Room Air 09/02/23 14:40 Const General: cooperative, comfortable and No ill appearing HENMT Head: normal to inspection and normocephalic Resp Effort & Inspection: normal respiratory effort Auscultation: clear to auscultation bilaterally Cardio Rate: regular rate Rhythm: regular rhythm GI Inspection: normal to inspection Back/Spine/Pelvis Other: Redness and warmth to the left foot that seems to be located around the great toe however does extend up the foot. No pustules noted. Neuro Sensory Exam: no sensory deficits noted Extrem Other: Swelling to the left foot. Course Orders Ordered: ED Orders 09/02/23 14:50 Complete Blood Count AUTO DIFF Stat Comprehensive Metabolic Panel Stat Lactate (Lactic Acid) Stat NT-proBNP (BNP-Adult 18+) Stat Prothrombin Time INR Stat Troponin I Stat Uric Acid Stat 09/02/23 14:54 XR chest 1V Stat EKG-12 Lead Stat Measure peak expiratory flow ONCE RT Consult Eval and Treat NOW 09/02/23 15:45 CT angio chest PE protocol Stat Discontinued Medications Prednisone (Prednisone 20 Mg Tablet) 20 mg PO NOW ONE Stop: 09/02/23 17:14 Last Admin: 09/02/23 17:22 Dose: Not Given Documented By: EDUARDO Prednisone (Prednisone 20 Mg Tablet) 40 mg PO NOW ONE Stop: 09/02/23 17:18 Last Admin: 09/02/23 17:23 Dose: 40 mg Documented By: EDUARDO Vital Signs Vital signs: Vital Signs - 8 hr 09/02/23 14:40 09/02/23 14:57 09/02/23 14:58 Temperature 97.1 F L Pulse Rate 87 79 80 Respiratory Rate 20 18 19 Blood Pressure 157/78 H Pulse Oximetry 92 94 Oxygen Delivery Method Room Air 09/02/23 14:58 09/02/23 15:00 09/02/23 15:00 Temperature Pulse Rate 81 Respiratory Rate 25 H Blood Pressure 166/81 H 161/73 H Pulse Oximetry 92 Oxygen Delivery Method Room Air 09/02/23 15:30 09/02/23 15:31 09/02/23 15:31 Temperature Pulse Rate 78 77 Respiratory Rate 21 18 Blood Pressure 165/76 H Pulse Oximetry 94 97 Oxygen Delivery Method 09/02/23 16:07 09/02/23 16:30 09/02/23 16:33 Temperature Pulse Rate 75 75 Respiratory Rate 19 22 Blood Pressure 194/80 H Pulse Oximetry 93 92 Oxygen Delivery Method Room Air 09/02/23 16:33 09/02/23 17:00 09/02/23 17:01 Temperature Pulse Rate 74 75 76 Respiratory Rate 21 20 22 Blood Pressure Pulse Oximetry 94 95 91 Oxygen Delivery Method 09/02/23 17:01 Temperature Pulse Rate Respiratory Rate Blood Pressure 190/86 H Pulse Oximetry Oxygen Delivery Method Medical Decision Making Medical Records Medical records reviewed: Yes I reviewed the patient's medical records. Lab Data Lab results reviewed: Yes I reviewed the patient's lab results. 09/02/23 14:50 09/02/23 14:50 Labs: Lab Results 09/02/23 Range/Units 14:50 WBC 12.1 H (4.5-11.0) X10^3/uL RBC 4.29 (4.0-5.2) X10^6/uL Hgb 13.0 (12.0-16.0) g/dL Hct 40.1 (36-46) % MCV 93.4 (80-100) fL MCH 30.4 (26-34) PG MCHC 32.5 (30-36) % RDW 13.6 (11.6-14.8) % Plt Count 257 (150-400) X10^3/uL Neut % (Auto) 71.5 (50-75) % Lymph % (Auto) 17.9 L (25-40) % Banner % (Auto) 8.6 (3-14) % Eos % (Auto) 0.8 L (2-4) % Baso % (Auto) 1.2 (0-2) % Neut # (Auto) 8700 H (1057-1986) /uL Lymph # (Auto) 2200 (0559-6011) /uL Banner # (Auto) 1000 H (0-900) /uL Eos # (Auto) 100 (0-450) /uL Baso # (Auto) 100 (0-100) /uL PT 13.0 H (9.4-12.5) SECONDS INR 1.1 (0.9-1.3) Sodium 135 L (137-145) mmol/L Potassium 4.1 (3.4-5.1) mmol/L Chloride 92 L (98-107) mmol/L Carbon Dioxide 36 H (22-32) mmol/L BUN 25 H (7-17) mg/dL Creatinine 1.00 (0.52-1.04) mg/dL Estimated GFR 57 L (>60) mL/min BUN/Creatinine Ratio 25.0 H (6-22) Glucose 135 H (80-110) mg/dL Lactate 1.5 (0.7-2.1) mmol/L Uric Acid 10.6 H (2.5-6.2) mg/dL Calcium 10.4 H (8.4-10.2) mg/dL Total Bilirubin 1.1 (0.2-1.3) mg/dL AST TNP ALT 24 (<35) IU/L Alkaline Phosphatase 108 (38-126) U/L Troponin I < 0.012 (0.01-0.034) ng/mL NT-Pro-B Natriuret Pep 144 (<450) pg/mL Total Protein 8.5 H (6.3-8.2) g/dL Albumin 4.3 (3.5-5.0) g/dL Globulin 4.2 H (1.7-4.1) g/dL Albumin/Globulin Ratio 1.0 (1.0-2.8) Imaging Data Chest x-ray: Radiologist's Impression: PROCEDURE: XR CHEST 1V INDICATIONS: Shortness of breath TECHNIQUE: One view of the chest was acquired. COMPARISON: [facility], CR, XR CHEST 1V, 12/30/2022, 17:35. FINDINGS: Surgical changes and devices: None. Lungs and pleura: Lungs are clear. No pleural effusions or pneumothorax. Mediastinum: Mediastinal contours appear normal. Heart size is normal. Bones and chest wall: No suspicious bony lesions. Overlying soft tissues appear unremarkable. IMPRESSION: No acute process. CT scan - chest: Radiologist's Impression: PROCEDURE: CT ANGIO CHEST PE PROTOCOL INDICATIONS: Chest pain, shortness of breath, tachycardia TECHNIQUE: After the administration of intravenous contrast, 2 mm thick sections acquired from the pulmonary apices to the posterior costophrenic angles. 3-dimensional maximum intensity projection (MIP) coronal and sagittal reformats were then acquired through the thorax. For radiation dose reduction, the following was used: automated exposure control, adjustment of mA and/or kV according to patient size. COMPARISON: [facility], CT, CT ANGIO CHEST PE PROTOCOL, 12/30/2022, 19:51. FINDINGS: Image quality: Diagnostic. Pulmonary arteries: Pulmonary arteries are normal in size, and demonstrate no intraluminal filling defects to suggest central pulmonary embolism. Lower Neck: No enlarged lymph nodes. Thyroid: No thyroid nodules which require sonographic follow up, per consensus guidelines. Axillae: No enlarged lymph nodes. Chest Wall: Unremarkable. Bones: Unremarkable. Lungs and Pleura: No pneumothorax or pleural effusions. No evidence of pneumonia. Scarring within the left anterior lung base. Mild scarring within the right upper lobe anteriorly. Heart: Heart size is normal. No pericardial effusion. Calcification of the coronary vasculature. Thoracic Vessels: No aortic aneurysm. Mediastinum and Grazyna: No enlarged lymph nodes. Esophagus: No wall thickening. No hiatal hernia. Upper Abdomen: Visualized upper abdomen solid organs and bowel loops appear normal. IMPRESSION: 1. No acute process. 2. No pulmonary embolus. 3. Coronary artery disease. ECG Data Attestation: I personally reviewed and interpreted this ECG as follows: Interpretation: Sinus rhythm Ventricular rate 81 Left axis deviation LVH Normal QRS No ST T wave changes MDM Narrative Medical decision making narrative: Patient's chest x-ray and CT scan of the chest show no acute pathology. I do not have a definitive diagnosis for her shortness of breath. I advised that she contact her primary doctor for a follow-up to discuss pulmonary function testing. There was no indication for antibiotics. Patient also has swelling and redness to the left foot. I did consider cellulitis however the patient states this feels just like her last episode of gout. She does have an elevated uric acid. She does have a slight leukocytosis however this could be explained because of gout. We did discuss the possibility of an infection however given her history we will treat with steroids. States the last time that this happened she took steroids and her symptoms improved very quickly. She was given return precautions for this specifically if her symptoms start to worsen I would at that point would consider cellulitis and antibiotics. She was given return precautions. She expressed understanding and agreement. Discharge Plan Departure Patient Disposition: Home Clinical Impression: Gout, Shortness of breath Instructions: DI for Gout Activity Restrictions/Additional Instructions: A prescription for steroids was sent to [facility]. Please start taking it as directed. The steroids only need to be taken until l your symptoms resolve. You do not have to complete the course of steroids if your symptoms resolve prior to 7 days. Recommend that you contact your primary care doctor for a follow-up. Return to the emergency department for new symptoms. Prescriptions: New prednisone 20 mg tablet 40 mg PO DAILY 7 Days Qty: 14 0RF No Action ascorbic acid (vitamin C) 500 MG tablet 500 mg PO QDAY Qty: 0 CHOLECALCIFEROL (VITAMIN D3) (Vitamin D3) 400 unit PO QDAY Qty: 0 VITAMIN B COMPLEX (Vitamin B Complex) 1 tab PO QDAY Qty: 0 CA PANTOTHENATE/FOLIC ACID/VIT (MULTIVITAMIN) 1 tab PO QDAY Qty: 0 omeprazole 20 mg capsule,delayed release(DR/EC) 20 mg PO BID Qty: 180 3RF lisinopril 40 mg tablet 40 mg PO BID Qty: 180 3RF Patient Comments: Patient reports Last two weeks my blood pressure has been low so I've only been taking it once a day in the morning. hydrocodone-acetaminophen 10-325 mg tablet 1 - 2 tab PO Q4H PRN (Reason: pain in joints) Qty: 360 0RF furosemide 40 mg tablet See Rx Instructions .ROUTE .COMPLEX Qty: 180 3RF Dose Instruction: TAKE ONE TABLET BY MOUTH 2 TIMES A DAY Rx Instructions: TAKE ONE TABLET BY MOUTH 2 TIMES A DAY celecoxib 200 mg capsule 200 mg PO DAILY Qty: 90 3RF Rx Instructions: TAKE 1 CAPSULE BY MOUTH EVERY MORNING WITH FOOD diazepam 5 mg tablet 5 mg PO Q8H PRN (Reason: anxiety) Qty: 180 0RF Lyrica 150 mg capsule 150 mg PO BID Qty: 180 2RF Patient Comments: Patient states she takes this med once a day. (DME) Disabled Parking See Rx Instructions .ROUTE .MEDSUPPLY Qty: 1 0RF Rx Instructions: Patient qualifies for disabled parking as per the attached form. metoprolol tartrate [Lopressor] 100 mg tablet 150 mg PO BID Qty: 270 3RF Patient Comments: Takes PM dose around 3-4pm. Referrals: Oskar Soto MD [Primary Care Provider] - Stand Alone Forms: Patient Portal/API
[2023-09-02 16:34] LABS: Uric Acid 10.6 mg/dL (2.5-6.2)
--- NOTE | 2023-09-02 16:58 | PC.NURSE ---
pt's left foot/toes are swollen and red. some peeling also noted. SOB for several weeks. left foot is very painful to touch.
[2023-09-02] MEDS: predniSONE 20 MG TABLET 40 MG PO (17:23)
[2023-09-03 15:22] LABS: Aspartate Aminotransferase 35 IU/L (14-36)
== END 2023-09-02 17:36 | disposition home or self-care (01) ==
PROVIDERS: Emergency Provider Emergency Medicine; PCP Internal Medicine
DX: M10.9 Gout, unspecified (principal); R06.02 Shortness of breath; R07.9 Chest pain, unspecified; R00.0 Tachycardia, unspecified
CPT/HCPCS: 36415; 71045; 71275; 80053; 83605; 83880; 84484; 84550; 85025; 85610; 93005; 99284

== ENCOUNTER 2023-10-05 11:21 | Inpatient (IN) | payer OTHER, SELFPAY ==
[2023-01-12 11:14] VITALS: BMI 37.8
[2023-10-05] VITALS (82 sets, daily range): BP systolic 77–148; BP diastolic 44–90; PULSE 41–92; RESP 8–32; TEMP 30.1–37; O2SAT 87–100; BMI 35.9
--- NOTE | 2023-10-05 11:32 | DI.RAD.S_ITS ---
PROCEDURE: XR CHEST 1V INDICATIONS: chest pain TECHNIQUE: One view of the chest was acquired. COMPARISON: [facility], CR, XR CHEST 1V, 09/02/2023, 14:50. FINDINGS: Surgical changes and devices: None. Lungs and pleura: Lungs are clear. No pleural effusions or pneumothorax. Mediastinum: Mediastinal contours appear normal. Heart size is normal. Bones and chest wall: No suspicious bony lesions. Overlying soft tissues appear unremarkable. IMPRESSION: No acute cardiopulmonary abnormality is seen. Dictated by: Jorge Gardner M.D. on 10/05/2023 at 11:58 Approved by: Jorge Gardner M.D. on 10/05/2023 at 11:59
[2023-10-05 11:49] LABS: Add Manual Diff / Slide Review NO; Basophils Absolute Auto 0 /uL (0-100); Basophils Percent Auto 0.2 % (0-2); Eosinophils Absolute Auto 200 /uL (0-450); Eosinophils Percent Auto 1.4 % (2-4); Hematocrit 38.5 % (36-46); Hemoglobin 12.6 g/dL (12.0-16.0); Lymphocytes Absolute Auto 2100 /uL (1100-4500); Lymphocytes Percent Auto 12.7 % (25-40); Mean Corpuscular HGB Conc 32.6 % (30-36); Monocytes Absolute Auto 1000 /uL (0-900); Monocytes Percent Auto 6.1 % (3-14); Neutrophils Absolute Auto 12900 /uL (1500-7000); Neutrophils Percent Auto 79.6 % (50-75); Platelet Count 302 X10^3/uL (150-400); Prothrombin Time 11.4 SECONDS (9.4-12.5); Red Blood Cell Count 4.05 X10^6/uL (4.0-5.2); Red Cell Distribution Width 13.7 % (11.6-14.8); White Blood Cell Count 16.2 X10^3/uL (4.5-11.0)
[2023-10-05 11:51] LABS: PTT Partial Thromboplastin Tim 37 SECONDS (25.1-36.5)
[2023-10-05] MEDS: SODIUM CHLORIDE 0.9% 2,055 ML 685 ML IV (11:53)
[2023-10-05 11:59] LABS: Alanine Aminotransferase 18 IU/L (<35); Albumin Globulin Ratio 1.1 (1.0-2.8); Alkaline Phosphatase 86 U/L (38-126); Aspartate Aminotransferase 26 IU/L (14-36); Bilirubin Total 0.8 mg/dL (0.2-1.3); Blood Urea Nitrogen 65 mg/dL (7-17); Calcium 9.4 mg/dL (8.4-10.2); Carbon Dioxide 30 mmol/L (22-32); Chloride 97 mmol/L (98-107); Creatine Kinase 68 U/L (30-135); Estimated Glomerular Filt Rate 17 mL/min (>60); Globulin 3.5 g/dL (1.7-4.1); Glucose 124 mg/dL (80-110); HEMOLYSIS < 15 (0-50); Lipase 237 U/L (23-300); Magnesium 1.7 mg/dL (1.6-2.3); Sodium 136 mmol/L (137-145); Total Protein 7.5 g/dL (6.3-8.2)
[2023-10-05 12:04] LABS: Lactate (Lactic Acid) 0.9 mmol/L (0.7-2.1)
--- NOTE | 2023-10-05 12:04 | ED_ITS ---
HPI - Weakness General Chief complaint: Weakness Stated complaint: Gen Weakness Time Seen by Provider: 10/05/23 11:53 Source: patient Mode of arrival: EMS Limitations: no limitations History of Present Illness HPI Narrative: 77-year-old female with history of pulmonary emboli no longer anticoagulated, hypertension, chronic pain syndrome, chronic kidney disease, gout, osteoarthritis and dyslipidemia presents with weakness. Patient states it started yesterday she felt very weak she was having trouble focusing, felt confused having trouble using her phone and just weak all over. She states that is persisted into today. She denies any fevers or chills. She initially denies any chest pain or shortness of breath but then states she always has that it has not any worse than normal. Patient states no new swelling of her legs but has had some increased swelling in her ankles. She denies syncope. She denies lightheadedness. She denies nausea or vomiting. She denies diarrhea. States she was constipated but had a very large formed bowel movement yesterday. Patient states she continues to feel weak today. She used to be on blood thinners for pulmonary emboli is no longer taking them. Did have a CTA of her chest on 09/02/2023 which was negative at that time. Patient has allergy to duloxetine. Related Data Home Medications Medication Instructions Recorded Confirmed CA PANTOTHENATE/FOLIC ACID/VIT 1 tab PO QDAY #0 tabs 05/16/13 10/05/23 (MULTIVITAMIN) CHOLECALCIFEROL (VITAMIN D3) 400 unit PO QDAY #0 tabs 05/16/13 10/05/23 (Vitamin D3) VITAMIN B COMPLEX (Vitamin B 1 tab PO QDAY #0 tabs 05/16/13 10/05/23 Complex) ascorbic acid (vitamin C) 500 mg 500 mg PO QDAY #0 tabs 05/16/13 10/05/23 tablet furosemide 40 mg tablet 40 mg PO BID 10/05/23 10/05/23 lisinopril 40 mg tablet 40 mg PO QAM 10/05/23 10/05/23 Previous Rx's Medication Instructions Recorded Disabled Parking #1 ea 04/27/22 metoprolol tartrate 100 mg tablet 150 mg (1.5 x 100 mg) PO BID #270 09/07/22 (Lopressor) tabs celecoxib 200 mg capsule 200 mg PO DAILY #90 caps 09/01/23 diazepam 5 mg tablet 5 mg PO Q8H PRN anxiety #180 tabs 09/01/23 pregabalin 150 mg capsule (Lyrica) 150 mg PO BID #180 caps 09/01/23 hydrocodone 10 mg-acetaminophen 1 - 2 tab PO Q4H PRN pain in 09/09/23 325 mg tablet joints #360 tabs omeprazole 20 mg capsule,delayed 20 mg PO BID #180 caps 09/09/23 release Allergies Allergy/AdvReac Type Severity Reaction Status Date / Time duloxetine AdvReac Mild sedation Verified 10/05/23 11:34 Review of Systems Review of Systems ROS Unobtainable: All systems reviewed & are unremarkable except as noted in HPI and below Patient History Medical History Pulmonary embolism Impaired glucose tolerance Cardiomyopathy Chronic renal failure, stage 3a Uncomplicated opioid dependence Osteoarthritis History of adenomatous polyp of colon (04/07/16) Gout Hyperlipidemia Chronic pain syndrome (04/14/11) Hypertension Surgical History Anesthesia History of back surgery History of surgery History of cholecystectomy History of knee replacement Status post appendectomy S/P total abdominal hysterectomy and bilateral salpingo-oophorectomy Family History Grandfather Family history of diabetes mellitus (DM) Social History marital status: number of children: 2 household members: spouse lives independently: Yes caregiver/support person: No housing: house pets and animals: No education level: college occupational status: employed current occupational exposures/hazards: No leisure activities: games and other Smoking Status: Never smoker Tobacco: How many years used: 0 quit status: quit date established second hand exposure: Yes (Past) alcohol intake: current substance use type: does not use Smoking Status: Never smoker alcohol intake frequency: other Substance Use Type: does not use Exam Narrative Exam Narrative: GENERAL: Alert and oriented, seems very, elderly female in moderate distress. HEENT: Head normocephalic, atraumatic, EOMI, pupils reactive, face symmetric, moist mucous membranes NECK: Supple, full range of motion CARDIOVASCULAR: Regular rate and rhythm without murmurs, rubs or gallops. RESPIRATORY: Breath sounds equal bilaterally, no wheezes rales or rhonchi. No tachypnea. No accessory muscle use. ABDOMEN: Soft, nontender. Normoactive bowel sounds all 4 quadrants. No guarding or rebound, rigidity, no mass : No CVA tenderness EXTREMITIES: Normal range of motion, no clubbing or edema. Neurovascularly intact NEUROLOGICAL: Cranial nerves II through XII grossly intact. Moving all extremities SKIN: Warm, dry, no petechiae, no rashes or lesions. Initial Vital Signs Initial Vital Signs: Vital Signs Temperature 97.6 F 10/05/23 11:16 Pulse Rate 63 10/05/23 11:16 Respiratory Rate 16 10/05/23 11:16 Blood Pressure 98/55 L 10/05/23 11:16 Pulse Oximetry 94 10/05/23 11:16 Oxygen Delivery Method Room Air 10/05/23 11:16 Course Orders Ordered: ED Orders 10/05/23 11:26 Complete Blood Count AUTO DIFF Stat Comprehensive Metabolic Panel Stat Lipase Stat Magnesium Stat PTT Partial Thromboplastin Torin Stat Prothrombin Time INR Stat Troponin & CK Cardiac Panel Stat 10/05/23 11:30 Lactate (Lactic Acid) Stat Procalcitonin Stat 10/05/23 11:32 XR chest 1V Stat EKG-12 Lead Stat 10/05/23 12:10 BNP [NT-proBNP (BNP-Adult 18+)] Stat Blood Culture Stat 10/05/23 12:30 ABG [Arterial Blood Gas] Stat 10/05/23 12:50 UA Complete [Urinalysis and Microscopic] Stat 10/05/23 12:53 Respiratory Panel (Film Array) Stat Acetaminophen (Acetaminophen 325 Mg Tablet) 650 mg PO Q6H PRN PRN Reason: Fever/Mild Pain (1-3) Hydrocodone Bitart/Acetaminophen (Hydrocodone/Acet 10/325 Tablet) 1 tab PO Q4HR PRN PRN Reason: Pain, Moderate (4-6) Hydrocodone Bitart/Acetaminophen (Hydrocodone/Acet 10/325 Tablet) 2 tab PO Q6HR PRN PRN Reason: Pain, Severe (7-10) Celecoxib (Celecoxib 200 Mg Capsule) 200 mg PO DAILY [facility] Enoxaparin Sodium (Enoxaparin 30 Mg/0.3 Ml Syringe) 30 mg SUBCUT DAILY MALINA NOREPINEPHRINE BITARTRATE/D5W (Levophed) 4 mg in 250 mls @ 42.524 mls/hr IV TITRATE MALINA; Protocol Last Titration: 10/05/23 18:09 Dose: 0.025 mcg/kg/min, 10.631 mls/hr Documented By: Titration: 10/05/23 15:17 Dose: 0.05 mcg/kg/min, 21.262 mls/hr Documented By: Titration: 10/05/23 15:04 Dose: 0.1 mcg/kg/min, 42.524 mls/hr Documented By: Admin: 10/05/23 13:33 Dose: 0.1 mcg/kg/min, 42.524 mls/hr Documented By: GIDEON Sodium Chloride (Normal Saline 0.9%) 1,000 mls @ 150 mls/hr IV CONT MALINA Last Admin: 10/05/23 15:43 Dose: 150 mls/hr Documented By: MARIAH NOREPINEPHRINE BITARTRATE/D5W (Levophed) 4 mg in 250 mls @ 42.524 mls/hr IV TITRATE MALINA; Protocol Methylprednisolone (Methylprednisolone 125 Mg/2 Ml Vial) 60 mg IV Q8H MALINA Last Admin: 10/05/23 15:44 Dose: 60 mg Documented By: MARIAH Naloxone HCl (Naloxone 0.4 Mg/Ml Vial) 0.2 mg IV Q2MIN PRN PRN Reason: Opiate Reversal Pantoprazole Sodium (Pantoprazole Dr 20 Mg Tablet) 20 mg PO 0600,2100 MALINA Pregabalin (Pregabalin 75 Mg Capsule) 150 mg PO DAILY [facility]INA Vitamin D (Cholecalciferol (Vitamin D3) 400 Unit Tablet) 400 unit PO DAILY MALINA Discontinued Medications Hydrocodone Bitart/Acetaminophen (Hydrocodone/Acet 5/325 Tablet) 1 tab PO Q4H PRN PRN Reason: Pain, Moderate (4-6) Hydrocodone Bitart/Acetaminophen (Hydrocodone/Acet 5/325 Tablet) 2 tab PO Q4H PRN PRN Reason: Pain, Severe (7-10) Last Admin: 10/05/23 15:48 Dose: 2 tab Documented By: AKP Sodium Chloride (Normal Saline 0.9%) 2,055 mls @ 685 mls/hr 30 ml/kg infuse over 3 hr (2055 ml) IV NOW ONE Stop: 10/05/23 14:52 Last Infusion: 10/05/23 14:34 Dose: Infused Documented By: Admin: 10/05/23 11:53 Dose: 685 mls/hr Documented By: GIDEON Vital Signs Vital signs: Vital Signs - 8 hr 10/05/23 11:16 10/05/23 11:26 10/05/23 11:30 Temperature 97.6 F Pulse Rate 63 65 66 Respiratory Rate 16 Blood Pressure 98/55 L Pulse Oximetry 94 89 L 94 Oxygen Delivery Method Room Air Nasal Cannula Oxygen Flow Rate 3 Fraction of Inspired Oxygen 10/05/23 11:30 10/05/23 11:43 10/05/23 11:43 Temperature Pulse Rate 62 Respiratory Rate 19 Blood Pressure 98/55 L 84/44 L Pulse Oximetry 87 L Oxygen Delivery Method Oxygen Flow Rate Fraction of Inspired Oxygen 10/05/23 11:45 10/05/23 11:46 10/05/23 11:46 Temperature Pulse Rate 61 61 Respiratory Rate 20 16 Blood Pressure 81/47 L Pulse Oximetry 96 95 Oxygen Delivery Method Oxygen Flow Rate Fraction of Inspired Oxygen 10/05/23 12:00 10/05/23 12:01 10/05/23 12:01 Temperature Pulse Rate 59 L 60 Respiratory Rate 14 15 Blood Pressure 94/56 L Pulse Oximetry 98 99 Oxygen Delivery Method Oxygen Flow Rate Fraction of Inspired Oxygen 10/05/23 12:14 10/05/23 12:15 10/05/23 12:15 Temperature Pulse Rate 59 L 60 Respiratory Rate 20 20 Blood Pressure 95/55 L Pulse Oximetry 93 96 Oxygen Delivery Method Oxygen Flow Rate Fraction of Inspired Oxygen 10/05/23 12:30 10/05/23 12:30 10/05/23 12:39 Temperature Pulse Rate 60 Respiratory Rate 20 Blood Pressure 124/63 85/50 L Pulse Oximetry 96 Oxygen Delivery Method Oxygen Flow Rate Fraction of Inspired Oxygen 30 10/05/23 12:39 10/05/23 12:45 10/05/23 12:46 Temperature Pulse Rate 60 60 61 Respiratory Rate 17 20 17 Blood Pressure Pulse Oximetry 97 97 97 Oxygen Delivery Method Oxygen Flow Rate Fraction of Inspired Oxygen 10/05/23 12:46 10/05/23 12:57 10/05/23 12:57 Temperature Pulse Rate 56 L Respiratory Rate 13 Blood Pressure 106/58 L 89/54 L Pulse Oximetry 100 Oxygen Delivery Method BiPAP Oxygen Flow Rate Fraction of Inspired Oxygen 10/05/23 13:00 10/05/23 13:00 10/05/23 13:15 Temperature Pulse Rate 57 L Respiratory Rate 21 Blood Pressure 93/50 L 83/48 L Pulse Oximetry 100 Oxygen Delivery Method BiPAP Oxygen Flow Rate Fraction of Inspired Oxygen 10/05/23 13:15 Temperature Pulse Rate 56 L Respiratory Rate 14 Blood Pressure Pulse Oximetry 100 Oxygen Delivery Method BiPAP Oxygen Flow Rate Fraction of Inspired Oxygen MDM - Weakness Lab Data 10/05/23 11:26 10/05/23 11:26 Labs: Lab Results 10/05/23 10/05/23 10/05/23 Range/Units 11:26 11:30 12:10 WBC 16.2 H (4.5-11.0) X10^3/uL RBC 4.05 (4.0-5.2) X10^6/uL Hgb 12.6 (12.0-16.0) g/dL Hct 38.5 (36-46) % MCV 95.0 (80-100) fL MCH 31.0 (26-34) PG MCHC 32.6 (30-36) % RDW 13.7 (11.6-14.8) % Plt Count 302 (150-400) X10^3/uL Neut % (Auto) 79.6 H (50-75) % Lymph % (Auto) 12.7 L (25-40) % [place] % (Auto) 6.1 (3-14) % Eos % (Auto) 1.4 L (2-4) % Baso % (Auto) 0.2 (0-2) % Neut # (Auto) 24908 H (2618-5940) /uL Lymph # (Auto) 2100 (1852-9177) /uL [place] # (Auto) 1000 H (0-900) /uL Eos # (Auto) 200 (0-450) /uL Baso # (Auto) 0 (0-100) /uL PT 11.4 (9.4-12.5) SECONDS INR 1.0 (0.9-1.3) APTT 37 H (25.1-36.5) SECONDS ABG Sample Site ABG pH (7.35-7.45) ABG pCO2 (35-45) mmHg ABG pO2 (80-100) mmHg ABG HCO3 (23-27) mmol/L ABG Total CO2 (23-27) mmol/L ABG O2 Saturation (95-100) % ABG Base Excess (-2-3) mmol/L FiO2 Sodium 136 L (137-145) mmol/L Potassium 5.0 (3.4-5.1) mmol/L Chloride 97 L (98-107) mmol/L Carbon Dioxide 30 (22-32) mmol/L BUN 65 H (7-17) mg/dL Creatinine 2.82 H (0.52-1.04) mg/dL Estimated GFR 17 L (>60) mL/min BUN/Creatinine Ratio 23.0 H (6-22) Glucose 124 H (80-110) mg/dL Lactate 0.9 (0.7-2.1) mmol/L Calcium 9.4 (8.4-10.2) mg/dL Magnesium 1.7 (1.6-2.3) mg/dL Total Bilirubin 0.8 (0.2-1.3) mg/dL AST 26 (14-36) IU/L ALT 18 (<35) IU/L Alkaline Phosphatase 86 (38-126) U/L Total Creatine Kinase 68 (30-135) U/L Troponin I < 0.012 (0.01-0.034) ng/mL NT-Pro-B Natriuret Pep 560 H (<450) pg/mL Total Protein 7.5 (6.3-8.2) g/dL Albumin 4.0 (3.5-5.0) g/dL Globulin 3.5 (1.7-4.1) g/dL Albumin/Globulin Ratio 1.1 (1.0-2.8) Lipase 237 (23-300) U/L Procalcitonin 0.19 (<0.5) ng/mL Urine Color Urine Appearance Urine pH (4.5-8.0) Ur Specific [place] (1.000-1.035) Urine Protein (Negative) Urine Glucose (UA) (Negative) g/dL Urine Ketones (NEGATIVE) Urine Occult Blood (Negative) Urine Nitrate (Negative) Urine Bilirubin (NEGATIVE) Urine Urobilinogen (0.2) E.U./dL Ur Leukocyte Esterase (NEGATIVE) Urine RBC (0-5/HPF) Urine WBC (0-5/HPF) Ur Squamous Epith Cells (0-5/HPF) Urine Bacteria (None) Urine Mucus (Negative) Ur Culture Indicated? Vol Urine Centrifuged Chlamy pneumoniae PCR (Not Detect) Adenovirus (PCR) (Not Detect) B.parapertussis DNA PCR (Not Detecte) Coronavirus OC43 (PCR) (Not Detect) Coronavirus HKU1 (PCR) (Not Detect) Coronavirus 229E (PCR) (Not Detect) SARS-CoV-2 (PCR) (Not Detecte) Coronavirus NL63 (PCR) (Not Detect) Human Metapneumovir PCR (Not Detect) Influenza Type A (PCR) (Not Detect) Influenza Type B (PCR) (Not Detect) M. pneumoniae (PCR) (Not Detect) Parainfluenza 1 (PCR) (Not Detect) Parainfluenza 2 (PCR) (Not Detect) Parainfluenza 3 (PCR) (Not Detect) Parainfluenza 4 (PCR) (Not Detect) RSV (PCR) (Not Detect) Entero/Rhino (PCR) (Not Detect) 10/05/23 10/05/23 10/05/23 Range/Units 12:30 12:50 12:53 WBC (4.5-11.0) X10^3/uL RBC (4.0-5.2) X10^6/uL Hgb (12.0-16.0) g/dL Hct (36-46) % MCV (80-100) fL MCH (26-34) PG MCHC (30-36) % RDW (11.6-14.8) % Plt Count (150-400) X10^3/uL Neut % (Auto) (50-75) % Lymph % (Auto) (25-40) % [place] % (Auto) (3-14) % Eos % (Auto) (2-4) % Baso % (Auto) (0-2) % Neut # (Auto) (5524-5426) /uL Lymph # (Auto) (6417-2806) /uL [place] # (Auto) (0-900) /uL Eos # (Auto) (0-450) /uL Baso # (Auto) (0-100) /uL PT (9.4-12.5) SECONDS INR (0.9-1.3) APTT (25.1-36.5) SECONDS ABG Sample Site Left brachial ABG pH 7.24 L* (7.35-7.45) ABG pCO2 62.4 H* (35-45) mmHg ABG pO2 77 L (80-100) mmHg ABG HCO3 27 (23-27) mmol/L ABG Total CO2 28 H (23-27) mmol/L ABG O2 Saturation 92 L (95-100) % ABG Base Excess -1.0 (-2-3) mmol/L FiO2 28 Sodium (137-145) mmol/L Potassium (3.4-5.1) mmol/L Chloride (98-107) mmol/L Carbon Dioxide (22-32) mmol/L BUN (7-17) mg/dL Creatinine (0.52-1.04) mg/dL Estimated GFR (>60) mL/min BUN/Creatinine Ratio (6-22) Glucose (80-110) mg/dL Lactate (0.7-2.1) mmol/L Calcium (8.4-10.2) mg/dL Magnesium (1.6-2.3) mg/dL Total Bilirubin (0.2-1.3) mg/dL AST (14-36) IU/L ALT (<35) IU/L Alkaline Phosphatase (38-126) U/L Total Creatine Kinase (30-135) U/L Troponin I (0.01-0.034) ng/mL NT-Pro-B Natriuret Pep (<450) pg/mL Total Protein (6.3-8.2) g/dL Albumin (3.5-5.0) g/dL Globulin (1.7-4.1) g/dL Albumin/Globulin Ratio (1.0-2.8) Lipase (23-300) U/L Procalcitonin (<0.5) ng/mL Urine Color Yellow Urine Appearance Clear Urine pH 5.0 (4.5-8.0) Ur Specific [place] 1.020 (1.000-1.035) Urine Protein Negative (Negative) Urine Glucose (UA) Negative (Negative) g/dL Urine Ketones Negative (NEGATIVE) Urine Occult Blood Negative (Negative) Urine Nitrate Negative (Negative) Urine Bilirubin Negative (NEGATIVE) Urine Urobilinogen 0.2 (0.2) E.U./dL Ur Leukocyte Esterase Negative (NEGATIVE) Urine RBC None seen (0-5/HPF) Urine WBC None seen (0-5/HPF) Ur Squamous Epith Cells 0-1 /hpf (0-5/HPF) Urine Bacteria Occasional (0-1) (None) Urine Mucus 2+ H (Negative) Ur Culture Indicated? Cult not indicated Vol Urine Centrifuged 10ml (spun) Chlamy pneumoniae PCR Not detected (Not Detect) Adenovirus (PCR) Not detected (Not Detect) B.parapertussis DNA PCR Not detected (Not Detecte) Coronavirus OC43 (PCR) Not detected (Not Detect) Coronavirus HKU1 (PCR) Not detected (Not Detect) Coronavirus 229E (PCR) Not detected (Not Detect) SARS-CoV-2 (PCR) Not detected (Not Detecte) Coronavirus NL63 (PCR) Not detected (Not Detect) Human Metapneumovir PCR Not detected (Not Detect) Influenza Type A (PCR) Not detected (Not Detect) Influenza Type B (PCR) Not detected (Not Detect) M. pneumoniae (PCR) Not detected (Not Detect) Parainfluenza 1 (PCR) Not detected (Not Detect) Parainfluenza 2 (PCR) Not detected (Not Detect) Parainfluenza 3 (PCR) Not detected (Not Detect) Parainfluenza 4 (PCR) Not detected (Not Detect) RSV (PCR) Not detected (Not Detect) Entero/Rhino (PCR) Not detected (Not Detect) Imaging Data Chest x-ray: Radiologist Impression: Close Chest X-Ray (Signed) Jorge Gardner - 10/05/23 Chest CTA (Signed) Jorge Gardner - 09/02/23 Chest X-Ray (Signed) Jorge Gardner - 09/02/23 Vascular Ultrasound (Signed) Carlos Hwang - 12/31/22 Echocardiogram Ultrasound (Signed) Linda Wesley - 12/31/22 Telemetry Strips 12/30/22 Chest CTA (Signed) Torres Lomeli - 12/30/22 Chest X-Ray (Signed) Jorge Gardner - 12/30/22 Telemetry Strips 08/21/19 Radiology Report (Cancelled) Jael Baxter - 05/06/19 Myocardial Perfusion Scan Nuc Med (Signed) Jael Baxter - 05/06/19 Myocardial Perfusion Scan Nuc Med (Signed) Dago Armijo - 08/11/18 Myocardial Perfusion Scan Nuc Med (Cancelled) 08/11/18 Pulmonary Function Test 02/01/18 Launch?Image [address] [address] XRay Report Signed Patient: Daphne Palomino MR#: [id number] : 1945 Acct:[id number] Age/Sex: 77 / F Date of Service: 10/05/23 Loc: ED Accession Number: [id number] Procedure: XR chest 1V Ordering Provider: Roseline Smith D.O. PROCEDURE: XR CHEST 1V INDICATIONS: chest pain TECHNIQUE: One view of the chest was acquired. COMPARISON: [facility], , XR CHEST 1V, 09/02/2023, 14:50. FINDINGS: Surgical changes and devices: None. Lungs and pleura: Lungs are clear. No pleural effusions or pneumothorax. Mediastinum: Mediastinal contours appear normal. Heart size is normal. Bones and chest wall: No suspicious bony lesions. Overlying soft tissues appear unremarkable. IMPRESSION: No acute cardiopulmonary abnormality is seen. Dictated by: Jorge Gardner M.D. on 10/05/2023 at 11:58 Approved by: Jorge Gardner M.D. on 10/05/2023 at 11:59 ECG Data Attestation: I personally reviewed and interpreted this ECG as follows: Prior ECG tracings: available for review Interpretation: Sinus rhythm rate of 64 NC 206 QRS of [address]TC [address] No acute ST elevation depression noted. Patient has prior from 09/02/2023 which appears similar MDM Narrative Medical decision making narrative: 77-year-old female who comes to the emergency department with complaint of weakness. Patient is foun to be hypotensive, sinus rhythm but rate in the 60s, hypoxic. Patient does have a history of pulmonary emboli, it has been off anticoagulants did have CT angio for PE that was negative on 09/02/2023. She also has a history with an echo that showed an EF around 45% in the past. She appears to be in acute kidney injury today. Her creatinine is 2.8 to priors were 1, sodium 136 chloride 97 potassium 5 BUN is 65, glucose is 124 lactate is negative with negative LFTs and a normal troponin, BNP is 560. Patient does have a white count of 16, neutrophils 79, normal white count and platelets. Procalcitonin is Patient had Arce catheter for strict ins and outs and urine shows Chest x-ray is negative for pneumonia, pulmonary edema. ABG was obtained shows acute hypercapnic respiratory failure, pH of 7.236 with a pCO2 of 62, PO2 of 77 on 3 L with bicarb of 26. Was going to order CT angio but with patient's renal dysfunction held off. Based on patient's ABG this would be less likely presentation with hypercapnic respiratory failure so anticoagulation was held as well was discussed with Dr. Soto. Spoke with Dr. Soto accepts for inpatient we will continue with BiPAP, awaiting urinalysis which is pending before starting any antibiotics, discussed possible norepinephrine if patient continues to be hypotensive we will start. MAP has been 60 range, goal of 65. He does note she is some chronic narcotic opiate history might be portion of this as well. Discussed unable to obtain CT angio to rule out pulmonary emboli but seems likely source for patient at this time. He agrees we will hold off on anticoagulation. He will see patient and adjust from there. Agrees with current plan to continue fluids. Plan for ICU. Critical Care Time Critical Care Time Critical Care Time: Yes Total Critical Care Time: 35 Attestation: The high probability of a clinically significant, sudden or life threatening deterioration of the [pulm, cardiac] system(s) required my full and direct attention, intervention and personal management. The aggregate critical care time was [] minutes. This time is in addition to time spent performing reported procedures but includes the following: [x] Data Review and interpretation [x] Patient assessment and monitoring of vital signs [x] Documentation [x] Medication orders and management Discharge Plan Departure Patient Disposition: Admitted As Inpatient Clinical Impression: Acute hypercapnic respiratory failure, Acute kidney injury Admit Date/Time: 10/05/23 13:27 Admit Provider: Oskar Soto
[2023-10-05 12:08] LABS: Troponin I < 0.012 ng/mL (0.01-0.034)
[2023-10-05 12:40] LABS: Procalcitonin 0.19 ng/mL (<0.5)
[2023-10-05 13:02] LABS: NT-proBNP (BNP-Adult 18+) 560 pg/mL (<450)
[2023-10-05 13:24] LABS: Appearance Urine UA CLEAR; Bilirubin Urine UA NEGATIVE (NEGATIVE); Color Urine UA YELLOW; Glucose Urine UA NEGATIVE (Negative); Ketones Urine UA NEGATIVE (NEGATIVE); Leukocyte Esterase Urine UA NEGATIVE (NEGATIVE); Nitrite Urine UA NEGATIVE (Negative); Occult Blood Urine UA NEGATIVE (Negative); Protein Urine UA NEGATIVE (Negative); Urobilinogen Urine UA 0.2 E.U./dL (0.2)
[2023-10-05 13:32] LABS: Bacteria Urine Occasional (0-1); Culture Indicated Urine Cult Not Indicated; Mucus Urine 2+ (Negative); RBC Urine None Seen (0-5/HPF); Squamous Epithelial Cell Urine 0-1 /HPF (0-5/HPF); Urine Volume 10mL (spun); WBC Urine None Seen (0-5/HPF)
[2023-10-05] MEDS: NOREPINEPHRINE BITARTRATE/D5W 4 MG/250 ML PLAST..BAG 42.524 MG IV (13:33)
[2023-10-05 13:38] LABS: PCO2 ABG 62.4 mmHg (35-45)
[2023-10-05 13:39] LABS: Blood Gas Collection Site Left Brachial; Fractionated Inspired Oxygen 28; HCO3 ABG 27 mmol/L (23-27); Oxygen Saturation ABG 92 % (95-100); PO2 ABG 77 mmHg (80-100); TCO2 ABG 28 mmol/L (23-27)
[2023-10-05 13:40] LABS: pH ABG 7.24 (7.35-7.45)
--- NOTE | 2023-10-05 13:44 | PC.NURSE ---
Shabnam RN at bedside to place a PIIC line. patients heart rate between 37bpm-48bps. Dr. Smith aware. this RN at bedside. patient denies any chest pain, lightheadedness or dizziness. Dr. Smith aware.
--- NOTE | 2023-10-05 13:53 | DI.RAD.S_ITS ---
PROCEDURE: XR CHEST FOR PICC 1V INDICATIONS: picc placement COMPARISON: [facility], SHANA, XR CHEST 1V, 10/05/2023, 11:50. [facility], CR, XR CHEST 1V, 09/02/2023, 14:50. FINDINGS: PICC was placed by the intravenous therapy team from the left side. Fluoroscopic spot film demonstrates the tip of PICC projecting to the area of lower SVC. IMPRESSION: Tip of PICC projects to the area of lower SVC. Low lung volumes. Left base atelectasis versus infectious/inflammatory opacity. Consider future imaging surveillance to assess for resolution. Dictated by: Jak Maldonado M.D. on 10/05/2023 at 15:30 Approved by: Jak Maldonado M.D. on 10/05/2023 at 15:31
[2023-10-05 14:07] LABS: Adenovirus Not Detected (Not Detect); B. parapertussis Not Detected (Not Detecte); Bordetella pertussis Not Detected (Not Detect); Chlamydophila pneumoniae Not Detected (Not Detect); Coronavirus 229E Not Detected (Not Detect); Coronavirus HKU1 Not Detected (Not Detect); Coronavirus NL 63 Not Detected (Not Detect); Coronavirus OC43 Not Detected (Not Detect); Human Metapneumovirus Not Detected (Not Detect); Human Rhinovirus/Enterovirus Not Detected (Not Detect); Influenza A Not Detected (Not Detect); Influenza B Not Detected (Not Detect); Mycoplasma pneumoniae Not Detected (Not Detect); Parainfluenza Virus 1 Not Detected (Not Detect); Parainfluenza Virus 2 Not Detected (Not Detect); Parainfluenza Virus 3 Not Detected (Not Detect); Parainfluenza Virus 4 Not Detected (Not Detect); Respiratory Syncytial Virus Not Detected (Not Detect); SARS- CoV-2 Not Detected (Not Detecte)
--- NOTE | 2023-10-05 15:34 | P.HP_ITS ---
History of Present Illness History of Present Illness Date Patient Seen: 10/05/23 Time Patient Seen: 15:34 Chief complaint: Gen Weakness Narrative: 77-year-old female well known to me admitted with weakness via the emergency department. Patient presented with 24-48 hours of increased weakness and noting her blood pressure to be quite low as well. Just did not feel like she would any energy. Denies any cold or flu symptoms fever chills cough that is sort of thing. Just found it very disturbing that she could not support her own weight on her feet. Had been complaining of shortness a breath particularly with exertion over the last several weeks. When I saw her last in clinic in mid August she was complaining of this and we would plan to work her up for possible primary pulmonary disease with PFTs etcetera. She actually has an appointment for the PFTs on this week. Does not think her breathing is actually anywhere his now than it was (although ER evaluation would suggest otherwise) Does have a history of bilateral pulmonary emboli after long car trip from [place] as a single event now off of anticoagulation for several months and CT scan in August failing to demonstrate recurrent PEs done because of her shortness of breath at that time (which is why she was seen in the ER) In the ER chest x-ray unremarkable. Troponin unremarkable. She was found to be hypoxic with a probable metabolic and more significant respiratory acidosis present on blood gases. She seem to improve clinically least with mental status, with BiPAP. She was a bit of a leukocytosis and a bump in her creatinine and BUN suggesting acute kidney injury Urinalysis unremarkable EKG unremarkable She did require Levophed in the ER to maintain her blood pressure [facility] Medical History Pulmonary embolism Impaired glucose tolerance Cardiomyopathy Chronic renal failure, stage 3a Uncomplicated opioid dependence Osteoarthritis History of adenomatous polyp of colon (04/07/16) Gout Hyperlipidemia Chronic pain syndrome (04/14/11) Hypertension Surgical History Anesthesia History of back surgery History of surgery History of cholecystectomy History of knee replacement Status post appendectomy S/P total abdominal hysterectomy and bilateral salpingo-oophorectomy Family History Grandfather Family history of diabetes mellitus (DM) Social History marital status: number of children: 2 household members: spouse lives independently: Yes caregiver/support person: No housing: house pets and animals: No education level: college occupational status: employed current occupational exposures/hazards: No leisure activities: games and other Smoking Status: Never smoker Tobacco: How many years used: 0 quit status: quit date established second hand exposure: Yes (Past) alcohol intake: current substance use type: does not use Meds Home Medications and Allergies Home Medications Medication Instructions Recorded Confirmed Type CA PANTOTHENATE/FOLIC ACID/VIT 1 tab PO QDAY #0 tabs 05/16/13 10/05/23 History (MULTIVITAMIN) CHOLECALCIFEROL (VITAMIN D3) 400 unit PO QDAY #0 tabs 05/16/13 10/05/23 History (Vitamin D3) VITAMIN B COMPLEX (Vitamin B 1 tab PO QDAY #0 tabs 05/16/13 10/05/23 History Complex) ascorbic acid (vitamin C) 500 mg 500 mg PO QDAY #0 tabs 05/16/13 10/05/23 History tablet Disabled Parking #1 ea 04/27/22 10/05/23 Rx metoprolol tartrate 100 mg tablet 150 mg (1.5 x 100 mg) PO BID #270 09/07/22 10/05/23 Rx (Lopressor) tabs celecoxib 200 mg capsule 200 mg PO DAILY #90 caps 09/01/23 10/05/23 Rx diazepam 5 mg tablet 5 mg PO Q8H PRN anxiety #180 tabs 09/01/23 10/05/23 Rx pregabalin 150 mg capsule (Lyrica) 150 mg PO BID #180 caps 09/01/23 10/05/23 Rx hydrocodone 10 mg-acetaminophen 1 - 2 tab PO Q4H PRN pain in 09/09/23 10/05/23 Rx 325 mg tablet joints #360 tabs omeprazole 20 mg capsule,delayed 20 mg PO BID #180 caps 09/09/23 10/05/23 Rx release furosemide 40 mg tablet 40 mg PO BID 10/05/23 10/05/23 History lisinopril 40 mg tablet 40 mg PO QAM 10/05/23 10/05/23 History Allergies Allergy/AdvReac Type Severity Reaction Status Date / Time duloxetine AdvReac Mild sedation Verified 10/05/23 11:34 Review of Systems Review of Systems ROS: Yes All systems reviewed with the patient and are negative except as otherwise documented Exam Vital Signs (past 8 hours): - 10/05/23 11:16 10/05/23 11:26 10/05/23 11:30 Temperature 97.6 F Pulse Rate 63 65 66 Respiratory Rate 16 Blood Pressure 98/55 L Pulse Oximetry 94 89 L 94 Oxygen Delivery Method Room Air Nasal Cannula Oxygen Flow Rate 3 Fraction of Inspired Oxygen 10/05/23 11:30 10/05/23 11:43 10/05/23 11:43 Temperature Pulse Rate 62 Respiratory Rate 19 Blood Pressure 98/55 L 84/44 L Pulse Oximetry 87 L Oxygen Delivery Method Oxygen Flow Rate Fraction of Inspired Oxygen 10/05/23 11:45 10/05/23 11:46 10/05/23 11:46 Temperature Pulse Rate 61 61 Respiratory Rate 20 16 Blood Pressure 81/47 L Pulse Oximetry 96 95 Oxygen Delivery Method Oxygen Flow Rate Fraction of Inspired Oxygen 10/05/23 12:00 10/05/23 12:01 10/05/23 12:01 Temperature Pulse Rate 59 L 60 Respiratory Rate 14 15 Blood Pressure 94/56 L Pulse Oximetry 98 99 Oxygen Delivery Method Oxygen Flow Rate Fraction of Inspired Oxygen 10/05/23 12:14 10/05/23 12:15 10/05/23 12:15 Temperature Pulse Rate 59 L 60 Respiratory Rate 20 20 Blood Pressure 95/55 L Pulse Oximetry 93 96 Oxygen Delivery Method Oxygen Flow Rate Fraction of Inspired Oxygen 10/05/23 12:30 10/05/23 12:30 10/05/23 12:39 Temperature Pulse Rate 60 Respiratory Rate 20 Blood Pressure 124/63 85/50 L Pulse Oximetry 96 Oxygen Delivery Method Oxygen Flow Rate Fraction of Inspired Oxygen 30 10/05/23 12:39 10/05/23 12:45 10/05/23 12:46 Temperature Pulse Rate 60 60 61 Respiratory Rate 17 20 17 Blood Pressure Pulse Oximetry 97 97 97 Oxygen Delivery Method Oxygen Flow Rate Fraction of Inspired Oxygen 10/05/23 12:46 10/05/23 12:57 10/05/23 12:57 Temperature Pulse Rate 56 L Respiratory Rate 13 Blood Pressure 106/58 L 89/54 L Pulse Oximetry 100 Oxygen Delivery Method BiPAP Oxygen Flow Rate Fraction of Inspired Oxygen 10/05/23 13:00 10/05/23 13:00 10/05/23 13:15 Temperature Pulse Rate 57 L Respiratory Rate 21 Blood Pressure 93/50 L 83/48 L Pulse Oximetry 100 Oxygen Delivery Method BiPAP Oxygen Flow Rate Fraction of Inspired Oxygen 10/05/23 13:15 10/05/23 13:30 10/05/23 13:30 Temperature Pulse Rate 56 L 53 L Respiratory Rate 14 21 Blood Pressure 83/49 L Pulse Oximetry 100 100 Oxygen Delivery Method BiPAP Oxygen Flow Rate Fraction of Inspired Oxygen 10/05/23 13:34 10/05/23 13:34 10/05/23 13:35 Temperature Pulse Rate 54 L Respiratory Rate 16 Blood Pressure 77/52 L 85/58 L Pulse Oximetry 99 Oxygen Delivery Method Oxygen Flow Rate Fraction of Inspired Oxygen 10/05/23 13:35 10/05/23 13:41 10/05/23 13:41 Temperature Pulse Rate 51 L 44 L Respiratory Rate 21 24 Blood Pressure 130/90 Pulse Oximetry 98 97 Oxygen Delivery Method BiPAP BiPAP Oxygen Flow Rate Fraction of Inspired Oxygen 10/05/23 13:45 10/05/23 13:46 10/05/23 13:46 Temperature Pulse Rate 45 L 47 L Respiratory Rate 17 19 Blood Pressure 125/62 Pulse Oximetry 98 99 Oxygen Delivery Method BiPAP Oxygen Flow Rate Fraction of Inspired Oxygen 10/05/23 13:50 10/05/23 13:50 10/05/23 13:55 Temperature Pulse Rate 49 L 46 L Respiratory Rate 25 H 23 Blood Pressure 134/70 Pulse Oximetry 99 100 Oxygen Delivery Method BiPAP Oxygen Flow Rate Fraction of Inspired Oxygen 10/05/23 13:55 10/05/23 14:00 10/05/23 14:00 Temperature Pulse Rate 46 L Respiratory Rate 23 Blood Pressure 121/66 124/63 Pulse Oximetry 99 Oxygen Delivery Method Oxygen Flow Rate Fraction of Inspired Oxygen 10/05/23 14:06 10/05/23 14:06 10/05/23 14:12 Temperature Pulse Rate 48 L Respiratory Rate 19 Blood Pressure 120/65 128/69 Pulse Oximetry 99 Oxygen Delivery Method Oxygen Flow Rate Fraction of Inspired Oxygen 10/05/23 14:12 10/05/23 14:15 10/05/23 14:16 Temperature Pulse Rate 45 L 51 L 46 L Respiratory Rate 25 H 27 H 29 H Blood Pressure Pulse Oximetry 99 99 100 Oxygen Delivery Method BiPAP Oxygen Flow Rate Fraction of Inspired Oxygen 10/05/23 14:16 10/05/23 14:21 10/05/23 14:21 Temperature Pulse Rate 45 L Respiratory Rate 18 Blood Pressure 132/61 140/67 Pulse Oximetry 100 Oxygen Delivery Method Oxygen Flow Rate Fraction of Inspired Oxygen 10/05/23 14:26 10/05/23 14:26 10/05/23 14:30 Temperature Pulse Rate 46 L Respiratory Rate 21 Blood Pressure 111/59 L 128/79 Pulse Oximetry 99 Oxygen Delivery Method BiPAP Oxygen Flow Rate Fraction of Inspired Oxygen 10/05/23 14:30 10/05/23 14:35 10/05/23 14:35 Temperature Pulse Rate 44 L 48 L Respiratory Rate 21 20 Blood Pressure 128/66 Pulse Oximetry 100 99 Oxygen Delivery Method BiPAP Oxygen Flow Rate Fraction of Inspired Oxygen 10/05/23 14:40 10/05/23 14:40 10/05/23 14:45 Temperature Pulse Rate 58 L Respiratory Rate 27 H Blood Pressure 129/69 137/65 Pulse Oximetry 99 Oxygen Delivery Method BiPAP Oxygen Flow Rate Fraction of Inspired Oxygen 10/05/23 14:45 10/05/23 15:12 Temperature Pulse Rate 58 L Respiratory Rate 19 Blood Pressure Pulse Oximetry 100 Oxygen Delivery Method Nasal Cannula Oxygen Flow Rate Fraction of Inspired Oxygen Fraction of Inspired Oxygen 30 Oxygen Delivery Method Nasal Cannula Oxygen Flow Rate 3 Narrative Exam Narrative: Elderly female in no obvious distress lying in hospital bed in the ICU HEENT-unremarkable Neck-no bruits Lungs-diminished breath sounds throughout some better superior lung barrera in clearly very diminished at bases with maybe crackles at the bases Heart-regular rate and rhythm Abdomen-benign Objective Labs 10/05/23 11:26 10/05/23 11:26 Labs: Laboratory Results - last 24 hr 10/05/23 10/05/23 10/05/23 11:26 11:30 12:10 WBC 16.2 H RBC 4.05 Hgb 12.6 Hct 38.5 MCV 95.0 MCH 31.0 MCHC 32.6 RDW 13.7 Plt Count 302 Neut % (Auto) 79.6 H Lymph % (Auto) 12.7 L [place] % (Auto) 6.1 Eos % (Auto) 1.4 L Baso % (Auto) 0.2 Neut # (Auto) 98137 H Lymph # (Auto) 2100 [place] # (Auto) 1000 H Eos # (Auto) 200 Baso # (Auto) 0 PT 11.4 INR 1.0 APTT 37 H ABG Sample Site ABG pH ABG pCO2 ABG pO2 ABG HCO3 ABG Total CO2 ABG O2 Saturation ABG Base Excess FiO2 Sodium 136 L Potassium 5.0 Chloride 97 L Carbon Dioxide 30 BUN 65 H Creatinine 2.82 H Estimated GFR 17 L BUN/Creatinine Ratio 23.0 H Glucose 124 H Lactate 0.9 Calcium 9.4 Magnesium 1.7 Total Bilirubin 0.8 AST 26 ALT 18 Alkaline Phosphatase 86 Total Creatine Kinase 68 Troponin I < 0.012 NT-Pro-B Natriuret Pep 560 H Total Protein 7.5 Albumin 4.0 Globulin 3.5 Albumin/Globulin Ratio 1.1 Lipase 237 Procalcitonin 0.19 Urine Color Urine Appearance Urine pH Ur Specific Snyder Urine Protein Urine Glucose (UA) Urine Ketones Urine Occult Blood Urine Nitrate Urine Bilirubin Urine Urobilinogen Ur Leukocyte Esterase Urine RBC Urine WBC Ur Squamous Epith Cells Urine Bacteria Urine Mucus Ur Culture Indicated? Vol Urine Centrifuged Chlamy pneumoniae PCR Adenovirus (PCR) B.parapertussis DNA PCR Coronavirus OC43 (PCR) Coronavirus HKU1 (PCR) Coronavirus 229E (PCR) SARS-CoV-2 (PCR) Coronavirus NL63 (PCR) Human Metapneumovir PCR Influenza Type A (PCR) Influenza Type B (PCR) M. pneumoniae (PCR) Parainfluenza 1 (PCR) Parainfluenza 2 (PCR) Parainfluenza 3 (PCR) Parainfluenza 4 (PCR) RSV (PCR) Entero/Rhino (PCR) 10/05/23 10/05/23 10/05/23 12:30 12:50 12:53 WBC RBC Hgb Hct MCV MCH MCHC RDW Plt Count Neut % (Auto) Lymph % (Auto) [place] % (Auto) Eos % (Auto) Baso % (Auto) Neut # (Auto) Lymph # (Auto) [place] # (Auto) Eos # (Auto) Baso # (Auto) PT INR APTT ABG Sample Site Left brachial ABG pH 7.24 L* ABG pCO2 62.4 H* ABG pO2 77 L ABG HCO3 27 ABG Total CO2 28 H ABG O2 Saturation 92 L ABG Base Excess -1.0 FiO2 28 Sodium Potassium Chloride Carbon Dioxide BUN Creatinine Estimated GFR BUN/Creatinine Ratio Glucose Lactate Calcium Magnesium Total Bilirubin AST ALT Alkaline Phosphatase Total Creatine Kinase Troponin I NT-Pro-B Natriuret Pep Total Protein Albumin Globulin Albumin/Globulin Ratio Lipase Procalcitonin Urine Color Yellow Urine Appearance Clear Urine pH 5.0 Ur Specific Snyder 1.020 Urine Protein Negative Urine Glucose (UA) Negative Urine Ketones Negative Urine Occult Blood Negative Urine Nitrate Negative Urine Bilirubin Negative Urine Urobilinogen 0.2 Ur Leukocyte Esterase Negative Urine RBC None seen Urine WBC None seen Ur Squamous Epith Cells 0-1 /hpf Urine Bacteria Occasional (0-1) Urine Mucus 2+ H Ur Culture Indicated? Cult not indicated Vol Urine Centrifuged 10ml (spun) Chlamy pneumoniae PCR Not detected Adenovirus (PCR) Not detected B.parapertussis DNA PCR Not detected Coronavirus OC43 (PCR) Not detected Coronavirus HKU1 (PCR) Not detected Coronavirus 229E (PCR) Not detected SARS-CoV-2 (PCR) Not detected Coronavirus NL63 (PCR) Not detected Human Metapneumovir PCR Not detected Influenza Type A (PCR) Not detected Influenza Type B (PCR) Not detected M. pneumoniae (PCR) Not detected Parainfluenza 1 (PCR) Not detected Parainfluenza 2 (PCR) Not detected Parainfluenza 3 (PCR) Not detected Parainfluenza 4 (PCR) Not detected RSV (PCR) Not detected Entero/Rhino (PCR) Not detected Assessment & Plan Assessment & Plan narrative: 1. Respiratory failure-patient hypoxic with respiratory acidosis elevated pCO2 etcetera. She has no known primary lung disease but has not been fully evaluated. She certainly I think has an element of obesity hypoventilation and may have some underlying chronic lung disease. No evidence of active infection and frankly no real evidence to suggest recurrent pulmonary embolism especially given her negative CT scan done in August with similar although not as severe symptoms at that time. Plan to place her on BiPAP see if we can help her respiratory status I am going to give her a dose of corticosteroids assuming this is an element least of COPD as well as oxygen replacement and correct or other extra electrolyte and metabolic abnormalities and see if this does not improve her overall status. At this point I do not see an indication for antibiotic therapy Will consider Pulmonary Medicine consultation as well. One other possibility regarding her respiratory status might be medication related. Patient is chronically on Valium plus hydrocodone and she may have either inadvertently overdosed or mismanaged her medications or perhaps this combinations finally caught up enough causing some degree of respiratory suppression resulting in above presentation (this may also explain her hypotension given her large doses of antihypertensive drugs). For the moment I am going to hold any benzodiazepines of course and minimize, and control, her exposure to opiate narcotics. She does have chronic pain and will need some level of pain control however. 2. Acute kidney injury-patient with evidence of acute kidney injury the rising creatinine and BUN there was also an element of metabolic acidosis likely secondary to the acute kidney injury my opinion. Will replace with IV fluids initially and monitor numbers carefully. Patient does have chronic renal failure stage IIIA at baseline although certainly exacerbated at this time. Perhaps the elevated creatinine in more significant elevated BUN contributing to her overall global weakness. 3. Hypotension-patient hypotensive for reasons not yet clear. Patient is on multiple medications at home that might have an affect on her blood pressure normally she was on high dose lisinopril high dose metoprolol etcetera. Obviously I think we need to back off on these medications at this time. Again whether there were some medication mismanagement at home causing her hypotension seem certainly possible. Perhaps her acute kidney injury is altered her metabolism and resulting overmedication at this time For the moment I think she may well need support with a vasopressor in addition to the vigorous IV fluids. She has an echo from January 2023 done after her presentation with the pulmonary emboli that shows only minimally depressed left ventricular function no significant valvular disease. She may benefit from repeat echocardiography this admission as well 4. Chronic back pain-patient long-term user of hydrocodone for her back pain as well as Celebrex. Okay to continue Celebrex for now but will try minimize dosing of opiate narcotics 5. Impaired glucose tolerance-patient will be seems some IV steroids as above need to monitor blood sugars. Will see what her blood sugar looks like on lab work in the morning and decide whether not fingerstick blood sugar checks will be necessary. 6. VTE prophylaxis-appropriate renally dosed Lovenox in addition to SCDs 7. Code status-full code as per patient request
--- NOTE | 2023-10-05 15:40 | DI.ECHO.S_ITS ---
[facility] +---------+ [facility] +---------+ : : [address] : : : : [id number] : : : : Phone: [phone] Echocardiogram Report + + :Name: JONATHAN GUTIÉRREZ Study Date: 10/06/2023 Height: 70 in : :[facility] ReadingLocation: Weight: 250 lb : : Gender: Female BSA: 2.3 m2 : :: 1945 Age: 77 yrs BP: 119/59 mmHg: :Reason For Study: DYSPNEA, HYPOTENSION : :Ordering Physician: JAVON, : :HANDY Paiz Performed By: Leanne Haji : :Referring: HANDY ALEJANDRO : + + Interpretation Summary The left ventricle is normal in size and wall thickness. Left ventricular systolic function is borderline reduced. The ejection fraction is estimated to be 45-50%. LVEF has improved since prior study. Diastolic parameters suggest a relaxation abnormality of the left ventricle, consistent with probable normal filling pressures. The right ventricle is normal in size and function. Right ventricular systolic pressure is estimated to be 24 mmHg plus the clinically estimated CVP which cannot be estimated on this exam. The left atrial size is normal. There is mild mitral regurgitation. There is mild to moderate aortic regurgitation which has not changed since prior study. There is no other significant valvular heart disease. The ascending aorta is mildly enlarged. Procedure: A two-dimensional transthoracic echocardiogram with color flow and Doppler was performed. The study quality was technically adequate. Comparison is made with the echocardiogram of 12/31/2022. The patient was in sinus rhythm with heart rates between 54-85 bpm during the exam. Left Ventricle: The left ventricle is normal in size and wall thickness. Left ventricular systolic function is borderline reduced. The ejection fraction is estimated to be 45-50%. There is borderline global hypokinesis of the left ventricle. Diastolic parameters suggest a relaxation abnormality of the left ventricle, consistent with probable normal filling pressures. Right Ventricle: The right ventricle is normal in size and function. Atria: The left atrial size is normal. Right atrial size is normal. There is no Doppler evidence for an interatrial shunt. Mitral Valve: The mitral valve is normal in structure and function. There is mild mitral regurgitation. Aortic Valve: The aortic valve is trileaflet. The aortic valve opens well. There is no aortic valve stenosis. There is mild to moderate aortic regurgitation. Tricuspid Valve: The tricuspid valve is normal in structure and function. There is mild tricuspid regurgitation. Right ventricular systolic pressure is estimated to be 24 mmHg plus the clinically estimated CVP which cannot be estimated on this exam. Pulmonic Valve: The pulmonic valve is not well seen, but is grossly normal. There is trace pulmonic regurgitation. There is no other significant valvular heart disease. Great Vessels: The aortic root is normal size. The ascending aorta is mildly enlarged. Patient was unable to follow strong sniff instructions. The IVC is dilated, but has some respiratory collapse suggesting high central venous pressure. Pericardium/ Pleura There is no pericardial effusion. There is no pleural effusion. MMode/2D Measurements & Calculations LVIDd: 5.2 cm LVOT diam: 2.0 cm LVIDs: 3.7 cm Ao root diam: 3.2 cm FS: 29.8 % asc Aorta Diam: 3.7 cm EPSS: 1.0 cm Ao Arch Diam (Prox Trans): 3.2 cm IVSd: 0.87 cm LVPWd: 0.84 cm LV jimenez. diameter/BSA (cm/m^2): 2.3 LV sys. diameter/BSA (cm/m^2): 1.6 LA A2 area: 25.7 cm2 RA long axis: 4.9 cm LA A4 area: 16.1 cm2 RA area: 14.3 cm2 LA length (vol): 5.1 cm RA vol: 35.8 ml LA vol: 69.6 ml RA : 15.6 ml/m2 LA vol index: 30.3 ml/m2 IVC diam: 2.8 cm RVD1 (basal): 3.8 cm RVD2 (mid): 3.5 cm TAPSE: 2.3 cm Doppler Measurements & Calculations Ao V2 max: 160.3 cm/sec LVOT Max Norman: 117.3 cm/sec Ao V2 mean: 118.0 cm/sec LV V1 max P.5 mmHg Ao max P.3 mmHg LV V1 VTI: 30.8 cm Ao mean P.0 mmHg CHUY(I,D): 2.2 cm2 Ao V2 VTI: 43.1 cm CHUY(V,D): 2.3 cm2 sev ratio: 0.71 CHUY indexed to BSA (cm^2/m^2): 0.97 AI P1/2t: 610.3 msec AI dec slope: 180.5 cm/sec2 MV E max norman: 80.8 cm/sec TR max norman: 245.5 cm/sec MV A max norman: 108.3 cm/sec TR max P.1 mmHg MV E/A: 0.75 PA V2 max: 107.6 cm/sec Med Peak E' Norman: 5.1 cm/sec PA V2 mean: 79.1 cm/sec E/E' med: 16.0 PA mean P.7 mmHg Lat Peak E' Norman: 5.4 cm/sec PA pr(Accel): 43.0 mmHg E/E' lat: 14.9 E/e' average: 15.4 MV dec time: 0.25 sec SV(LVOT): 95.5 ml Reading Physician:09:54 AM
[2023-10-05] MEDS: SODIUM CHLORIDE 0.9% 1,000 ML 150 ML IV ×2 (15:43→22:31)
[2023-10-05] MEDS: methylPREDNISolone 125 MG/2 ML VIAL 60 MG IV ×2 (15:44→23:21)
[2023-10-05] MEDS: HYDROCODONE/ACET 5/325 TABLET 2 TAB PO (15:48)
--- NOTE | 2023-10-05 16:39 | PC.NURSE ---
Pt arrived on unit VSS, lethargic but arousable and oriented. O2 2L NC Sats upper 90s. Provider notified of arrival, notified of levophed requirement for MAP >65 and O2 requirment. Asked about/requested ABG, diet order/clarification, levophed order, and possible pulmonary consult (as mentioned by patient). Provider responded that he would like to assess pt before making additional future orders.
[2023-10-05 17:43] LABS: MRSA (Nasal) PCR Not Detected (Not Detect)
[2023-10-05] MEDS: HYDROCODONE/ACET 10/325 TABLET 2 TAB PO (20:48)
[2023-10-06] VITALS (108 sets, daily range): BP systolic 118–151; BP diastolic 58–102; PULSE 41–81; RESP 9–39; TEMP 36.2–37; O2SAT 91–100
[2023-10-06] MEDS: SODIUM CHLORIDE 0.9% 1,000 ML 150 ML IV ×2 (05:05→11:48)
[2023-10-06 05:16] LABS: Add Manual Diff / Slide Review NO; Basophils Absolute Auto 0 /uL (0-100); Basophils Percent Auto 0.1 % (0-2); Eosinophils Absolute Auto 0 /uL (0-450); Hematocrit 37.9 % (36-46); Hemoglobin 12.2 g/dL (12.0-16.0); Lymphocytes Absolute Auto 600 /uL (1100-4500); Lymphocytes Percent Auto 4.3 % (25-40); Mean Corpuscular HGB Conc 32.3 % (30-36); Mean Corpuscular Hemoglobin 30.4 PG (26-34); Mean Corpuscular Volume 94.3 fL (80-100); Monocytes Absolute Auto 100 /uL (0-900); Monocytes Percent Auto 0.4 % (3-14); Neutrophils Absolute Auto 14200 /uL (1500-7000); Neutrophils Percent Auto 95.2 % (50-75); Platelet Count 234 X10^3/uL (150-400); Red Blood Cell Count 4.02 X10^6/uL (4.0-5.2); Red Cell Distribution Width 13.7 % (11.6-14.8); White Blood Cell Count 14.9 X10^3/uL (4.5-11.0)
[2023-10-06 05:31] LABS: Alanine Aminotransferase 45 IU/L (<35); Albumin 3.6 g/dL (3.5-5.0); Alkaline Phosphatase 85 U/L (38-126); Aspartate Aminotransferase 46 IU/L (14-36); BUN Creatinine Ratio 29.8 (6-22); Bilirubin Total 0.5 mg/dL (0.2-1.3); Blood Urea Nitrogen 53 mg/dL (7-17); Calcium 8.5 mg/dL (8.4-10.2); Carbon Dioxide 27 mmol/L (22-32); Chloride 103 mmol/L (98-107); Estimated Glomerular Filt Rate 29 mL/min (>60); Globulin 3.5 g/dL (1.7-4.1); Glucose 180 mg/dL (80-110); HEMOLYSIS < 15 (0-50); Sodium 138 mmol/L (137-145); Total Protein 7.1 g/dL (6.3-8.2)
[2023-10-06 05:48] LABS: Potassium 5.5 mmol/L (3.4-5.1)
--- NOTE | 2023-10-06 06:46 | PC.NURSE ---
radiology special procedure tech RN note Pt c/o pain in back, analgesics given with effect, VSS, levophed titrated to keep MAP>65 and off at 0500, SB with 1st degree AVB 38-60, MD notified when HR sustained in 30-40s, lungs decreased with fine crackles to bases, O2 sats >92%, bipap 13/5 30% on at HS, pt requested it off at 0300 and placed back on NC, r/c draining clear yellow urine, skin pale and dry, picc SHAYLA patent, continue to monitor
[2023-10-06 07:55] LABS: pH ABG 7.24 (7.35-7.45)
[2023-10-06 07:58] LABS: Fractionated Inspired Oxygen 28; HCO3 ABG 24 mmol/L (23-27); Oxygen Saturation ABG 92 % (95-100); PCO2 ABG 55.2 mmHg (35-45); PO2 ABG 77 mmHg (80-100); TCO2 ABG 25 mmol/L (23-27)
[2023-10-06 07:59] LABS: Allen Test for ABG Passed? Yes, Passed; Blood Gas Collection Site Right Radial
[2023-10-06] MEDS: PANTOPRAZOLE DR 20 MG TABLET PO ×2 (08:20→20:32)
[2023-10-06] MEDS: HYDROCODONE/ACET 10/325 TABLET 2 TAB PO ×2 (08:20→16:27)
[2023-10-06] MEDS: ENOXAPARIN 30 MG/0.3 ML SYRINGE SUBCUT (08:21)
[2023-10-06] MEDS: CHOLECALCIFEROL (VITAMIN D3) 400 UNIT TABLET PO (08:21)
[2023-10-06] MEDS: methylPREDNISolone 125 MG/2 ML VIAL 60 MG IV ×3 (08:21→22:15)
[2023-10-06] MEDS: PREGABALIN 75 MG CAPSULE 150 MG PO (08:24)
[2023-10-06] MEDS: CELECOXIB 200 MG CAPSULE PO (08:24)
--- NOTE | 2023-10-06 08:32 | P.PN_ITS ---
Subjective Subjective Date Patient Seen: 10/06/23 Time Patient Seen: 08:32 Interval history: Patient tolerated BiPAP overnight. Did have heart rate into the mid 30s at times while sleeping. BiPAP remove this morning at my order and patient is still doing about the same. Nursing staff feels like she is somewhat somnolent although she was sitting up using her cell phone before I walked into the room and holds a nice normal conversation I think she is if anything little more awake and alert than she was last evening No new complaints although she continues to be quite worried about her inability to walk since that is really what brought her in and that has not been tested yet Denies any chest pain any cough shortness of breath any other symptoms Blood work this morning shows her ABGs essentially unchanged pCO2 is improved slightly from 60+ down to 55. Still consistent with a mixed metabolic and respiratory acidosis with a modestly large AA gradient Renal function improved with creatinine now 1.78 and BUN slightly improved as well. Slight bump in transaminases Echo done earlier this morning no interpretation available as yet Now off Levophed and maintaining blood pressure in the 110-120 range on her own. Making excellent urine output Exam Vital Signs (past 8 hours): - 10/06/23 00:45 10/06/23 01:00 10/06/23 01:01 Pulse Rate 50 L 56 L Respiratory Rate 20 22 Blood Pressure 151/98 H Pulse Oximetry 95 97 Oxygen Delivery Method Fraction of Inspired Oxygen 10/06/23 01:01 10/06/23 01:15 10/06/23 01:30 Pulse Rate 54 L 61 54 L Respiratory Rate 21 25 H 19 Blood Pressure 144/85 H Pulse Oximetry 96 97 94 Oxygen Delivery Method Fraction of Inspired Oxygen 10/06/23 01:45 10/06/23 02:00 10/06/23 02:00 Pulse Rate 51 L 60 Respiratory Rate 22 24 Blood Pressure Pulse Oximetry 96 97 Oxygen Delivery Method BiPAP Fraction of Inspired Oxygen 10/06/23 02:00 10/06/23 02:01 10/06/23 02:01 Pulse Rate 62 Respiratory Rate 21 Blood Pressure 144/85 H Pulse Oximetry 97 Oxygen Delivery Method Fraction of Inspired Oxygen 30 10/06/23 02:15 10/06/23 02:30 10/06/23 02:45 Pulse Rate 57 L 54 L 62 Respiratory Rate 21 17 14 Blood Pressure 124/70 Pulse Oximetry 97 97 94 Oxygen Delivery Method Fraction of Inspired Oxygen 10/06/23 03:00 10/06/23 03:01 10/06/23 03:01 Pulse Rate 58 L 76 Respiratory Rate 10 L 26 H Blood Pressure 124/70 Pulse Oximetry 97 96 Oxygen Delivery Method Fraction of Inspired Oxygen 10/06/23 03:15 10/06/23 03:30 10/06/23 03:45 Pulse Rate 59 L 58 L 61 Respiratory Rate 13 28 H 17 Blood Pressure Pulse Oximetry 96 97 97 Oxygen Delivery Method Fraction of Inspired Oxygen 10/06/23 04:00 10/06/23 04:15 10/06/23 04:30 Pulse Rate 55 L 57 L 54 L Respiratory Rate 14 16 15 Blood Pressure 149/102 H Pulse Oximetry 96 97 98 Oxygen Delivery Method Fraction of Inspired Oxygen 10/06/23 04:45 10/06/23 05:00 10/06/23 05:01 Pulse Rate 56 L 79 Respiratory Rate 17 24 Blood Pressure 149/102 H Pulse Oximetry 97 97 Oxygen Delivery Method Fraction of Inspired Oxygen 10/06/23 05:01 10/06/23 05:15 10/06/23 05:30 Pulse Rate 76 62 62 Respiratory Rate 20 16 13 Blood Pressure 119/59 L Pulse Oximetry 96 95 96 Oxygen Delivery Method Fraction of Inspired Oxygen 10/06/23 05:45 10/06/23 06:00 10/06/23 06:00 Pulse Rate 70 60 Respiratory Rate 24 14 Blood Pressure Pulse Oximetry 97 96 Oxygen Delivery Method Nasal Cannula Fraction of Inspired Oxygen 10/06/23 06:01 10/06/23 06:01 10/06/23 06:15 Pulse Rate 60 58 L Respiratory Rate 17 19 Blood Pressure 119/59 L Pulse Oximetry 96 96 Oxygen Delivery Method Fraction of Inspired Oxygen 10/06/23 06:30 10/06/23 06:45 10/06/23 07:00 Pulse Rate 55 L 57 L Respiratory Rate 18 38 H Blood Pressure 127/58 L Pulse Oximetry 94 96 Oxygen Delivery Method Fraction of Inspired Oxygen 10/06/23 07:00 10/06/23 07:15 10/06/23 07:30 Pulse Rate 51 L 56 L 51 L Respiratory Rate 11 L 13 12 Blood Pressure Pulse Oximetry 96 97 97 Oxygen Delivery Method Fraction of Inspired Oxygen 10/06/23 07:45 Pulse Rate 56 L Respiratory Rate 20 Blood Pressure Pulse Oximetry 99 Oxygen Delivery Method Fraction of Inspired Oxygen Fraction of Inspired Oxygen 30 Oxygen Delivery Method Nasal Cannula Oxygen Flow Rate 2 Objective Labs 10/06/23 04:40 10/06/23 04:40 Labs: Laboratory Results - last 24 hr 10/05/23 10/05/23 10/05/23 11:26 11:30 12:10 WBC 16.2 H RBC 4.05 Hgb 12.6 Hct 38.5 MCV 95.0 MCH 31.0 MCHC 32.6 RDW 13.7 Plt Count 302 Neut % (Auto) 79.6 H Lymph % (Auto) 12.7 L [place] % (Auto) 6.1 Eos % (Auto) 1.4 L Baso % (Auto) 0.2 Neut # (Auto) 41636 H Lymph # (Auto) 2100 [place] # (Auto) 1000 H Eos # (Auto) 200 Baso # (Auto) 0 PT 11.4 INR 1.0 APTT 37 H ABG Sample Site ABG pH ABG pCO2 ABG pO2 ABG HCO3 ABG Total CO2 ABG O2 Saturation ABG Base Excess FiO2 Sodium 136 L Potassium 5.0 Chloride 97 L Carbon Dioxide 30 BUN 65 H Creatinine 2.82 H Estimated GFR 17 L BUN/Creatinine Ratio 23.0 H Glucose 124 H Lactate 0.9 Calcium 9.4 Magnesium 1.7 Total Bilirubin 0.8 AST 26 ALT 18 Alkaline Phosphatase 86 Total Creatine Kinase 68 Troponin I < 0.012 NT-Pro-B Natriuret Pep 560 H Total Protein 7.5 Albumin 4.0 Globulin 3.5 Albumin/Globulin Ratio 1.1 Lipase 237 Procalcitonin 0.19 Urine Color Urine Appearance Urine pH Ur Specific [employer] Urine Protein Urine Glucose (UA) Urine Ketones Urine Occult Blood Urine Nitrate Urine Bilirubin Urine Urobilinogen Ur Leukocyte Esterase Urine RBC Urine WBC Ur Squamous Epith Cells Urine Bacteria Urine Mucus Ur Culture Indicated? Vol Urine Centrifuged Nasal Screen MRSA (PCR) Chlamy pneumoniae PCR Adenovirus (PCR) B.parapertussis DNA PCR Coronavirus OC43 (PCR) Coronavirus HKU1 (PCR) Coronavirus 229E (PCR) SARS-CoV-2 (PCR) Coronavirus NL63 (PCR) Human Metapneumovir PCR Influenza Type A (PCR) Influenza Type B (PCR) M. pneumoniae (PCR) Parainfluenza 1 (PCR) Parainfluenza 2 (PCR) Parainfluenza 3 (PCR) Parainfluenza 4 (PCR) RSV (PCR) Entero/Rhino (PCR) 10/05/23 10/05/23 10/05/23 12:30 12:50 12:53 WBC RBC Hgb Hct MCV MCH MCHC RDW Plt Count Neut % (Auto) Lymph % (Auto) [place] % (Auto) Eos % (Auto) Baso % (Auto) Neut # (Auto) Lymph # (Auto) [place] # (Auto) Eos # (Auto) Baso # (Auto) PT INR APTT ABG Sample Site Left brachial ABG pH 7.24 L* ABG pCO2 62.4 H* ABG pO2 77 L ABG HCO3 27 ABG Total CO2 28 H ABG O2 Saturation 92 L ABG Base Excess -1.0 FiO2 28 Sodium Potassium Chloride Carbon Dioxide BUN Creatinine Estimated GFR BUN/Creatinine Ratio Glucose Lactate Calcium Magnesium Total Bilirubin AST ALT Alkaline Phosphatase Total Creatine Kinase Troponin I NT-Pro-B Natriuret Pep Total Protein Albumin Globulin Albumin/Globulin Ratio Lipase Procalcitonin Urine Color Yellow Urine Appearance Clear Urine pH 5.0 Ur Specific [employer] 1.020 Urine Protein Negative Urine Glucose (UA) Negative Urine Ketones Negative Urine Occult Blood Negative Urine Nitrate Negative Urine Bilirubin Negative Urine Urobilinogen 0.2 Ur Leukocyte Esterase Negative Urine RBC None seen Urine WBC None seen Ur Squamous Epith Cells 0-1 /hpf Urine Bacteria Occasional (0-1) Urine Mucus 2+ H Ur Culture Indicated? Cult not indicated Vol Urine Centrifuged 10ml (spun) Nasal Screen MRSA (PCR) Chlamy pneumoniae PCR Not detected Adenovirus (PCR) Not detected B.parapertussis DNA PCR Not detected Coronavirus OC43 (PCR) Not detected Coronavirus HKU1 (PCR) Not detected Coronavirus 229E (PCR) Not detected SARS-CoV-2 (PCR) Not detected Coronavirus NL63 (PCR) Not detected Human Metapneumovir PCR Not detected Influenza Type A (PCR) Not detected Influenza Type B (PCR) Not detected M. pneumoniae (PCR) Not detected Parainfluenza 1 (PCR) Not detected Parainfluenza 2 (PCR) Not detected Parainfluenza 3 (PCR) Not detected Parainfluenza 4 (PCR) Not detected RSV (PCR) Not detected Entero/Rhino (PCR) Not detected 10/05/23 10/06/23 10/06/23 15:10 04:40 07:35 WBC 14.9 H RBC 4.02 Hgb 12.2 Hct 37.9 MCV 94.3 MCH 30.4 MCHC 32.3 RDW 13.7 Plt Count 234 Neut % (Auto) 95.2 H Lymph % (Auto) 4.3 L [place] % (Auto) 0.4 L Eos % (Auto) 0.0 L Baso % (Auto) 0.1 Neut # (Auto) 97397 H Lymph # (Auto) 600 L [place] # (Auto) 100 Eos # (Auto) 0 Baso # (Auto) 0 PT INR APTT ABG Sample Site Right radial ABG pH 7.24 L* ABG pCO2 55.2 H ABG pO2 77 L ABG HCO3 24 ABG Total CO2 25 ABG O2 Saturation 92 L ABG Base Excess -4.0 L FiO2 28 Sodium 138 Potassium 5.5 H Chloride 103 Carbon Dioxide 27 BUN 53 H Creatinine 1.78 H Estimated GFR 29 L BUN/Creatinine Ratio 29.8 H Glucose 180 H Lactate Calcium 8.5 Magnesium Total Bilirubin 0.5 AST 46 H ALT 45 H Alkaline Phosphatase 85 Total Creatine Kinase Troponin I NT-Pro-B Natriuret Pep Total Protein 7.1 Albumin 3.6 Globulin 3.5 Albumin/Globulin Ratio 1.0 Lipase Procalcitonin Urine Color Urine Appearance Urine pH Ur Specific [employer] Urine Protein Urine Glucose (UA) Urine Ketones Urine Occult Blood Urine Nitrate Urine Bilirubin Urine Urobilinogen Ur Leukocyte Esterase Urine RBC Urine WBC Ur Squamous Epith Cells Urine Bacteria Urine Mucus Ur Culture Indicated? Vol Urine Centrifuged Nasal Screen MRSA (PCR) Not detected Chlamy pneumoniae PCR Adenovirus (PCR) B.parapertussis DNA PCR Coronavirus OC43 (PCR) Coronavirus HKU1 (PCR) Coronavirus 229E (PCR) SARS-CoV-2 (PCR) Coronavirus NL63 (PCR) Human Metapneumovir PCR Influenza Type A (PCR) Influenza Type B (PCR) M. pneumoniae (PCR) Parainfluenza 1 (PCR) Parainfluenza 2 (PCR) Parainfluenza 3 (PCR) Parainfluenza 4 (PCR) RSV (PCR) Entero/Rhino (PCR) [facility] Medical History Pulmonary embolism Impaired glucose tolerance Cardiomyopathy Chronic renal failure, stage 3a Uncomplicated opioid dependence Osteoarthritis History of adenomatous polyp of colon (04/07/16) Gout Hyperlipidemia Chronic pain syndrome (04/14/11) Hypertension Surgical History Anesthesia History of back surgery History of surgery History of cholecystectomy History of knee replacement Status post appendectomy S/P total abdominal hysterectomy and bilateral salpingo-oophorectomy Family History Grandfather Family history of diabetes mellitus (DM) Social History marital status: number of children: 2 household members: spouse lives independently: Yes caregiver/support person: No housing: house pets and animals: No education level: college occupational status: employed current occupational exposures/hazards: No leisure activities: games and other Smoking Status: Never smoker Tobacco: How many years used: 0 quit status: quit date established second hand exposure: Yes (Past) alcohol intake: current substance use type: does not use Assessment & Plan Assessment & Plan narrative: 1. Respiratory failure-still not clear what the underlying etiology is. I am more concerned about possible pulmonary embolism given the persistent AA gradient and acidosis etcetera. I am going to go ahead and treat her with full- dose Lovenox, as I am uncomfortable ordering a contrast-enhanced CT of her chest at the moment given her renal dysfunction. Creatinine clearance is about mid 40s currently if her creatinine continues to improve and may well be okay for scan tomorrow Still believe there has an element of underlying chronic lung disease and will continue with the corticosteroids for now 2. Acute kidney injury-improving with IV fluids. Will cut back on IV fluid she is nearing baseline with her creatinine. Hopefully tomorrow's numbers will be at baseline and as above allow for CT imaging of her chest 3. Hypotension-resolved with IV fluid support etcetera. Continue to monitor carefully 4. Chronic back pain-still major concern the patient. I am still concerned she may have inadvertently overdosed or mixed her medications including her antihypertensive therapy but will go ahead and give her hydrocodone here which she chronically takes at home and we are able to carefully monitor and control her dosing here in the hospital 5. Impaired glucose tolerance-blood sugar 180 on lab work this morning. Continue to monitor in that fashion for now. If numbers have been over 200 I would have instituted fingerstick blood sugar checks but will not do that at this time 6. Weakness-will start physical therapy Overall I think she can probably be downgraded to floor care from ICU care as she really does not have any critical care needs at this time and I will not anticipate putting her back on BiPAP unless her clinical status significantly worsens.
[2023-10-06] MEDS: ENOXAPARIN 100 MG/ML SYRINGE 70 MG SUBCUT (09:48)
--- NOTE | 2023-10-06 10:24 | PC.NURSE ---
In the morning, reported the following to provider: ABG results, lab results (elevated potassium, elevated WBC), bradycardia overnight and in the morning, and norepinephrine turned off with BP MAP >65. Confirmed that it was appropriate to remove Arce catheter and appropriate to give pain medications based off neuro status/lethargy and reported pain level. Asked provider about downgrading patient since the BP had been stable and norephinephrine turned off. Also reported that pt had increased appetite this am. Provider said ok to remove Arce and ok to give pain medication per pain scale.
[2023-10-06] MEDS: SENNOSIDES 8.6 MG TABLET PO ×2 (10:47→20:31)
--- NOTE | 2023-10-06 10:50 | PT.IIE ---
Current Diagnoses Respiratory failure, unspecified, unspecified whether with hypoxia or hypercapnia (10/05/23) Surgical History (Last Reviewed 10/05/23 @ 15:36 by Oskar Soto MD) Anesthesia History of back surgery History of cholecystectomy History of knee replacement History of surgery S/P total abdominal hysterectomy and bilateral salpingo-oophorectomy Status post appendectomy Medical History (Last Reviewed 10/05/23 @ 15:36 by Oskar Soto MD) Cardiomyopathy Chronic pain syndrome (04/14/11) Chronic renal failure, stage 3a Gout History of adenomatous polyp of colon (04/07/16) Hyperlipidemia Hypertension Impaired glucose tolerance Osteoarthritis Pulmonary embolism Uncomplicated opioid dependence Physical Therapy Inpatient Evaluation/Re-Eval M1 PT/OT-IP Prior Functional Status Start: 10/06/23 13:39 Freq: NEEDED Status: Active Protocol: Document 10/06/23 10:50 AB (Rec: 10/06/23 13:56 AB [id number]) Medical Review Prior Functional Status Medical History Reviewed Yes Communication able to make needs known Mobility and Gait pt stated that she was modified independent with all mobilities and ambulation using an Up walker indoors but uses a 4WW for outdoor mobility Social History Household Members spouse Living Arrangements House Number of Floors (Floors) Two Floors Number of Stairs To Enter/Railing? pt stays on main level of the house has 1 step( 8 inch high) to enter the house; pt stated that she usually uses her SPC to step up Home Environment High Toilet,Tub/Shower Home Equipment Front Wheel Walker,Four Wheel Walker,Tub Transfer Bench,Hand Held Shower,Grab Bars Near Toilet,Grab Bars In Shower Additional Social History Comment pt has an Up walker, adjustable bed M2 PT-IP Current Condition Start: 10/06/23 13:39 Freq: NEEDED Status: Active Protocol: Document 10/06/23 10:50 AB (Rec: 10/06/23 13:56 AB [id number]) Physical Therapy Current Condition Current Condition Evaluation Date 10/06/23 Treatment Diagnosis respiratory failure; ECOTR; difficulty in walking Onset Date 10/05/23 M3 PT-IP Subjective Start: 10/06/23 13:39 Freq: NEEDED Status: Active Protocol: Document 10/06/23 10:50 AB (Rec: 10/06/23 13:56 AB [id number]) Subjective Physical Therapy Visit Type Type Initial Evaluation Visit Start Time 10:50 Visit Stop Time 11:45 Number of MACHINE SIGN WRITER Visits 55 Physical Therapy Visit Comments Patient Comments agreeable to do PT M4 PT-IP Mobility and Gait Start: 10/06/23 13:39 Freq: NEEDED Status: Active Protocol: Document 10/06/23 10:50 AB (Rec: 10/06/23 13:56 AB [id number]) PT-Bed Mobility Assessment Supine to Sit Supine to Sit Minimal Assistance,Head of Bed Elevated PT-Transfer Assessment Sit to and From Stand Sit to and from Stand Moderate Assistance,Maximum Assistance,1 Person Assistance ,2 Person Assistance,Use of Upper Extremities Equipment Transfer Assistive Device Gait Belt,Front Wheeled Walker Orthotic/Prosthetic Devices or Brace: No Transfers Transfer Destination Chair Transfer Technique Stand Step Pivot Transfer Ability Level of Assist Moderate Assistance,Maximum Assistance,2 Person Assistance ,Use of Upper Extremities Comments Mobility Comments pt supine in bed and agreeable to do PT. spouse in room. obtained PLOF and home set up from pt. BP: 125/ 58 O2 sat with O2 on: 95%. pt completed supine to sit Tony and cues with HOB elevated. pt is concerned about getting up and stated that BLE gave out last time she got up. pt was able to sit on EOB SBA. cued for PLB. c/o dizziness . BP checked: 133/79 abnd O2 sat 95% NAC in room to assist. pt completed sit to stand mod A x 2 to max A x 2 and max cues. instructed to step transfer using FWW to chair and midway with transfers, pt stated that it feels like her legs will give out. cued pt for quads contraction. pt needing mod A x 2 to max A x 2 for transfers using FWW. pt agreed to ambulate. completed sit to stand max A x1-2 and max cues and ambulated ~ 5 ft using FWW max A x 1 and chair follow. pt sat back on the chair. agreed to stay up on the chair. positioned pt on the chair. call light and table placed within reach. informed pt regarding current mobility level and needs and possible SNF but pt refuse SNF and stated that if needed, they will hire somebody to provide more assistance. Left pt with NAC. Gait Assessment Gait Gait Assistance Required: Maximum Assistance,1 Person Assist Distance (Feet) 5 Able to Maintain Weight Bearing Status Yes During Gait Assistive Devices Assistive Device Gait Belt,Front Wheeled Walker Orthotic/Prosthetic Devices or Brace: No Gait Deviations General Gait Pattern Decreased Stride Length, Decreased Feet Clearance,Step- to Gait Factors Limiting Gait Function Factors Limiting Gait Function Decreased Activity Tolerance, Decreased Strength,Difficulty Following Directions,Pain,Poor Balance,Poor Safety Awareness ,Respiratory Distress PT-Balance Assessment Sitting Balance and Reactions Static Sitting Balance Ability Good Dynamic Sitting Balance Ability Good Standing Balance and Reactions Static Standing Balance Ability Poor Dynamic Standing Balance Ability Poor Device Used FWW M5 PT-IP Objective Assessments Start: 10/06/23 13:39 Freq: NEEDED Status: Active Protocol: Document 10/06/23 10:50 AB (Rec: 10/06/23 13:56 AB [id number]) Orientation Orientation/Cognition Level of Alertness Alert Orientation Name,Place,Situation Language Function Ability No Deficits Noted Safety Awareness Decreased Safety Awareness Memory Description No Deficits Noted Gross Range of Motion Lower Extremity ROM Assessment Within Functional Limits Strength Lower Extremity Strength Assessment Bilaterally Impaired Comments Strength Comments L hip: 4-/5 L knee: 3+/5 R hip: 3+/5 R knee: 4-/5 Coordination Assessment Gross Coordination Gross Coordination WNL Sensation Assessment Sensation Gross Sensation WNL Muscle Tone Muscle Tone WNL Yes M6 PT-IP Treatment Start: 10/06/23 13:39 Freq: NEEDED Status: Active Protocol: Document 10/06/23 10:50 AB (Rec: 10/06/23 13:56 AB [id number]) Physical Therapy Treatment Education Education Provided Safety M7 PT-IP Assessment and Plan Start: 10/06/23 13:39 Freq: NEEDED Status: Active Protocol: Document 10/06/23 10:50 AB (Rec: 10/06/23 13:56 AB [id number]) PT Summary Assessment and Plan Potential Rehabilitation Potential Fair Status of Condition at Evaluation Evolving Summary Impairments Pain,ROM,Strength,Balance, Coordination,Sensation,Tone, Cognition,Bed Mobility, Transfers,Gait,Activity Tolerance Assessment Summary pt is a 77 y/o F who presented to the ED due to weakness. pt admitted for respiratory failure and acute kidney injury. pt requiring mod A x 2 to max A x 2 and max cues with mobility and presents with decrease activity tolerance affecting mobility level and safety. pt will require 24/7 assist and may need SNF but pt informed and refuse. will continue to assess progress for safe d/c plan. Goals Bed Mobility Goal Standby Assistance Transfer Goal Standby Assistance,Front Wheeled Walker Gait Goal Standby Assistance,Front Wheel Walker Gait Distance 25 Other Goals improve bed mobility, transfers, ambulation using 4WW/up walker mod I 150 ft up/down 1 step using SPC/4WW SBA Days to Meet Goals 10 Frequency of Treatment Frequency Of Treatment Once a Day Treatment Plan Physical Therapy Treatment Plan Bed Mobility Training,Transfer Training,Gait Training, Therapeutic Exercise,Balance Retraining,Discharge Planning, Hot or Cold Pack,Neuromuscular Re-ed,Coordination Retraining Precautions Other Precautions O2 sat, falls Recommendations To Nursing Amount of Assist Needed 2 Person Assist Discharge Recommendations PT Discharge Recommendations SNF Rehab Transportation Needs at Discharge Wheelchair/Cabulance
--- NOTE | 2023-10-06 14:58 | CM.DANOTE ---
Initial DCP Assessment Note Pt is a 77 yo female, resident of [place], presents with difficulty breathing and generalized weakness PCP: Oskar Soto Payer: Juan ELLIS Reviewed chart, met w/patient and her spouse, introduced self and role. Patient reports being indp w/most ADLs, spouse stands by for showering assist. Patient does all their bookkeeping, spouse does most of the cooking and chores. both patient and spouse drive. No home O2. Patient denies hx of HH or SNF. Discussed HH services and patient hesitant to accept. [place] that patient and spouse thought home health meant sewing machine mechanic which patient and spouse do not feel they need at this time. Patient/sp have two supportive sons, Elgin and Arnoldo Carlisle who also live in [place] and can be available to assist as needed. Review of PT note this afternoon show therapy recommendation is for SNF at this time as patient is currently requiring 2 person assist. Patient has been informed and refusing SNF upon discharge. OT ordered today. Plan: Discharge home w/spouse and family is anticipated, likely w.HH services if patient is agreeable. CM team will plan to follow patient's clinical course closely. Contact information placed on patient's white board. RADHA Ambrosio Discharge Planning/Care Management CM Discharge Assessment Start: 10/06/23 14:49 Freq: Status: Active Protocol: Document 10/06/23 14:49 YAQUELIN (Rec: 10/06/23 14:58 YAQUELIN [id number]) Discharge Planning Assessment Assigned Insurance And Benefits Clerk RADHA Lujan DPOA/Assigned Designee Name Arnoldo Palomino, spouse Contact Information [phone], cell Advance Directives? No History Provided By Patient,Significant Other, Medical Record Prior Living Arrangements House Household Members spouse Type of transporation used prior to Drives own vehicle admit Independent with ADL's Yes Is patient alert and oriented? Yes Needs Assistance With Bathing,Home Chores / Shopping Comment SBA for bathing according to patient Patient/Family Preference Home with Home Health Barriers to Discharge Yes Comment PT currently recommending SNF. Discharge Plan Home with Home Health Transportation Arrangement Spouse Additional Comment HH vs SNF Whiteboard Updated in Patient Room with Yes name and ext. # of Insurance And Benefits Clerk
--- NOTE | 2023-10-06 15:20 | OT.IP.EVAL ---
Addendum entered and electronically signed by Carissa Mendez OT 10/06/23 15:44: esign Original Note: Current Diagnoses Respiratory failure, unspecified, unspecified whether with hypoxia or hypercapnia (10/05/23) Past Medical History (Last Reviewed 10/05/23 @ 15:36 by Oskar Soto MD) Cardiomyopathy Chronic pain syndrome (04/14/11) Chronic renal failure, stage 3a Gout History of adenomatous polyp of colon (04/07/16) Hyperlipidemia Hypertension Impaired glucose tolerance Osteoarthritis Pulmonary embolism Uncomplicated opioid dependence Surgical History (Last Reviewed 10/05/23 @ 15:36 by Oskar Soto MD) Anesthesia History of back surgery History of cholecystectomy History of knee replacement History of surgery S/P total abdominal hysterectomy and bilateral salpingo-oophorectomy Status post appendectomy Occupational Therapy Inpatient Evaluation/Re-Eval M1 PT/OT-IP Prior Functional Status Start: 10/06/23 15:28 Freq: NEEDED Status: Active Protocol: Document 10/06/23 15:28 [facility] (Rec: 10/06/23 15:42 [facility] [id number]) Medical Review Prior Functional Status Medical History Reviewed Yes Communication able to make needs known Mobility and Gait pt stated that she was modified independent with all mobilities and ambulation using an Up walker indoors but uses a 4WW for outdoor mobility Activities of Daily Living and IADL's Pt states uses LB dressing equipment to assist with LB dressing needs as needed. Pt able to do ADl and IADL needs and her assists. Social History Household Members spouse Living Arrangements House Number of Floors (Floors) Two Floors Number of Stairs To Enter/Railing? pt stays on main level of the house has 1 step( 8 inch high) to enter the house; pt stated that she usually uses her SPC to step up Home Environment High Toilet,Tub/Shower Home Equipment Front Wheel Walker,Four Wheel Walker,Bedside Commode,Tub Transfer Bench,Hand Held Shower,Grab Bars Near Toilet, Grab Bars In Shower Additional Social History Comment pt has an Up walker, adjustable bed M2 OT-IP Current Condition Start: 10/06/23 15:28 Freq: Status: Active Protocol: Document 10/06/23 15:28 [facility] (Rec: 10/06/23 15:42 [facility] [id number]) Occupational Therapy Current Condition Current Condition Evaluation Date 10/06/23 Treatment Diagnosis Respiratory Failure Diagnosis Onset Date 10/05/23 M3 OT- IP Subjective and Pain Start: 10/06/23 15:28 Freq: Status: Active Protocol: Document 10/06/23 15:28 [facility] (Rec: 10/06/23 15:42 [facility] [id number]) OT- Subjective Occupational Therapy Visit Type Type Initial Evaluation Visit Start Time 14:15 Visit Stop Time 15:20 Occupational Therapy Visit Comments Patient Comments Pt tired as just getting back to bed and agreed to work with OT and try use of the BSC. Patient/Caregiver Goals To go home. OT Pain Assessment Pain When Pain Assessed During Mobility Pain Present Pain Present Pain Reported M4 OT- IP ADL's Start: 10/06/23 15:28 Freq: Status: Active Protocol: Document 10/06/23 15:28 [facility] (Rec: 10/06/23 15:42 [facility] [id number]) OT [id number]-Vhos-Rqhuuzs General Evaluation Self-Feeding Ability Independent OT ADL-Grooming Comments OT Grooming Comments NOt performed, no issues anticipated. OT ADL-Oral Care Comments Oral Care Comments Not performed, no issues anticipated. OT ADL-Toileting General Evaluation Toileting Ability Standby Assistance Comments OT Toileting Comments Pt able to do her own hygiene needs and brief management needs. OT ADL-Bathing Comments OT Bathing Comments Pt has a tub bench at home to use and in the process of trying to get a walk in tub put into her home. M5 OT- IP IADL's Start: 10/06/23 15:28 Freq: Status: Active Protocol: Document 10/06/23 15:28 [facility] (Rec: 10/06/23 15:42 [facility] [id number]) OT-Instrumental Activities of Daily Living Deficits IADL Deficits Identified Deficits Home Safety Awareness Awareness of Need for Assistance at Home Good Awareness Ability to Problem Solve Emergency Able to Problem Solve Situations Home Safety Comments Pt has a supportive to assist at home. Medication Management Medication Management No Deficits Identified Money Management Money Management No Deficits Identified Meal Preparation Meal Preparation Comments is able to assist. Electronic Systems Technician Electronic Systems Technician Comments Pt will need assist. M6 OT- IP Functional Cognition Start: 10/06/23 15:28 Freq: Status: Active Protocol: Document 10/06/23 15:28 [facility] (Rec: 10/06/23 15:42 [facility] [id number]) Cognitive Factors Limiting Selfcare Function Cognitive Ability Level of Alertness Alert Patient Orientation Name,Age,Birthday,Month,Date, Year,Day of Week,Place, Situation Attention Span Ability Capable of Focused Attention, Capable of Sustained Attention Ability to Follow Commands Able to Follow One Step Commands Cognitive Comments Cognitive Assessment Comments Pt able to follow commands for ADL and mobility needs. OT- Vision and Hearing OT- Hearing Assessment OT- Hearing Assessment WFL OT- Vision Assessment Visual Acuity Glasses All The Time Visual Attentiveness WFL Occular Pursuits WFL M7 OT- IP Mobility and Balance Start: 10/06/23 15:28 Freq: Status: Active Protocol: Document 10/06/23 15:28 [facility] (Rec: 10/06/23 15:42 [facility] [id number]) OT- Bed Mobility Assessment Supine to Sit Supine to Sit Assist Standby Assistance,Head of Bed Elevated,Bedrails Sit to Supine Sit to Supine Assist Standby Assistance,Head of Bed Elevated,Bedrails OT-Transfer Assessment Sit to and From Stand Sit to and from Stand Contact Guard Assistance Transfers Transfer Ability Standby Assistance,Contact Guard Assistance Technique Transfer Destination Bed,Bedside Commode Transfer Technique Stand Step Pivot Devices Transfer Assistive Devices Gait Belt,Front Wheeled Walker Comments Mobility Comments SBA to get out of bed. Suggested log rolling but pt states does not work for her even though she has back pain. Pt tends to sit up into long sitting and then get each leg out to the edge of the bed. CGA to stand and transfer with [place] [facility] [place] way [place] SBA for all with FWW. OT- Balance Assessment Sitting Balance and Reactions Static Sitting Balance Ability Normal Dynamic Sitting Balance Ability Good Standing Balance and Reactions Static Standing Balance Ability Good Dynamic Standing Balance Ability Fair M8 OT- IP Objective Assessments Start: 10/06/23 15:28 Freq: Status: Active Protocol: Document 10/06/23 15:28 [facility] (Rec: 10/06/23 15:42 [facility] [id number]) OT Gross Range of Motion Upper Extremity Range of Motion ROM Impairments Grossly WFL OT Strength Comments Strength Comments WFL for ADL and transfer needs . M9 OT- IP Assessment and Plan Start: 10/06/23 15:28 Freq: Status: Active Protocol: Document 10/06/23 15:28 [facility] (Rec: 10/06/23 15:42 [facility] [id number]) OT Summary Assessment and Plan Potential Rehabilitation Potential Good Analytic Complexity at Evaluation Moderate Summary OT Impairments Pain,Balance,Functional Mobility,Dressing,Toileting, Bathing,Toilet Transfers, Shower Transfers,Activity Tolerance Progress Towards Goals Progressing Toward Goals Assessment Summary Pt MOD complexity and main barriers are step, needing use of 1L o2 and drop to mid 80's after exertion. Pt insistent that she does not need any OT at this time and feels would rather focus on PT needs of activity tolerance and strengthening. Able to give pt information for energy conservation. Pt to go home with assist when medically stable. Frequency of Treatment Frequency Of Treatment Discharge Discharge Recommendations OT Discharge Recommendations Home with Assistance, Outpatient PT Transportation Needs at Discharge Private Vehicle
[2023-10-06] MEDS: SODIUM CHLORIDE 0.9% 1,000 ML 125 ML IV (20:06)
[2023-10-06] MEDS: ENOXAPARIN 100 MG/ML SYRINGE SUBCUT (20:31)
[2023-10-06] MEDS: HYDROCODONE/ACET 10/325 TABLET 1 TAB PO (21:50)
[2023-10-07] VITALS (47 sets, daily range): BP systolic 149–181; BP diastolic 68–89; PULSE 45–92; RESP 10–31; TEMP 36.1–36.8; O2SAT 88–100
--- NOTE | 2023-10-07 00:31 | PC.NURSE ---
0010--pt woke disoriented; pulling on lines and attempting to get OOB; assisted pt up to BSC but pt unable to void or have a BM; pt returned to bed and after approx 15 minutes was reoriented; bed low and locked, call light in reach, bed alarm on
[2023-10-07] MEDS: SODIUM CHLORIDE 0.9% 1,000 ML 125 ML IV (03:46)
[2023-10-07] MEDS: HYDROCODONE/ACET 10/325 TABLET 1 TAB PO ×3 (04:24→21:46)
[2023-10-07 04:58] LABS: Add Manual Diff / Slide Review NO; Basophils Absolute Auto 0 /uL (0-100); Basophils Percent Auto 0.1 % (0-2); Eosinophils Absolute Auto 0 /uL (0-450); Hematocrit 34.6 % (36-46); Hemoglobin 11.3 g/dL (12.0-16.0); Lymphocytes Absolute Auto 800 /uL (1100-4500); Lymphocytes Percent Auto 5.4 % (25-40); Mean Corpuscular HGB Conc 32.7 % (30-36); Mean Corpuscular Hemoglobin 30.9 PG (26-34); Mean Corpuscular Volume 94.6 fL (80-100); Monocytes Absolute Auto 200 /uL (0-900); Monocytes Percent Auto 1.2 % (3-14); Neutrophils Absolute Auto 13800 /uL (1500-7000); Neutrophils Percent Auto 93.3 % (50-75); Platelet Count 198 X10^3/uL (150-400); Red Blood Cell Count 3.66 X10^6/uL (4.0-5.2); White Blood Cell Count 14.8 X10^3/uL (4.5-11.0)
[2023-10-07 05:38] LABS: Alanine Aminotransferase 37 IU/L (<35); Albumin 3.4 g/dL (3.5-5.0); Alkaline Phosphatase 92 U/L (38-126); Aspartate Aminotransferase 28 IU/L (14-36); BUN Creatinine Ratio 35.1 (6-22); Bilirubin Total 0.4 mg/dL (0.2-1.3); Blood Urea Nitrogen 40 mg/dL (7-17); Calcium 8.1 mg/dL (8.4-10.2); Carbon Dioxide 26 mmol/L (22-32); Chloride 106 mmol/L (98-107); Estimated Glomerular Filt Rate 49 mL/min (>60); Globulin 3.3 g/dL (1.7-4.1); Glucose 173 mg/dL (80-110); HEMOLYSIS < 15 (0-50); Potassium 4.7 mmol/L (3.4-5.1); Sodium 139 mmol/L (137-145); Total Protein 6.7 g/dL (6.3-8.2)
[2023-10-07] MEDS: methylPREDNISolone 125 MG/2 ML VIAL 60 MG IV ×3 (06:45→23:16)
[2023-10-07] MEDS: PANTOPRAZOLE DR 20 MG TABLET PO ×2 (06:45→20:29)
--- NOTE | 2023-10-07 07:01 | PC.NURSE ---
pt has not had any respiratory distress this shift; she remains on o2/1l/nc; she has had a couple of episodes of disorientation when she wakes up, but she knows she is disoriented; she has been medicated twice with [place] 1 tab for c/o chronic back pain; she got up to the BSC once with 2 person asst and FWW; leg strength good
--- NOTE | 2023-10-07 07:35 | DI.CT.S_ITS ---
PROCEDURE: CT ANGIO CHEST PE PROTOCOL INDICATIONS: Hypoxia TECHNIQUE: After the administration of intravenous contrast, 2 mm thick sections acquired from the pulmonary apices to the posterior costophrenic angles. 3-dimensional maximum intensity projection (MIP) coronal and sagittal reformats were then acquired through the thorax. For radiation dose reduction, the following was used: automated exposure control, adjustment of mA and/or kV according to patient size. COMPARISON: [facility], CT, CT ANGIO CHEST PE PROTOCOL, 09/02/2023, 15:54. FINDINGS: Image quality: Diagnostic. Pulmonary arteries: Pulmonary arteries demonstrate no intraluminal filling defects to suggest central pulmonary embolism. Dilated main pulmonary artery. Lower Neck: No enlarged lymph nodes. Thyroid: No thyroid nodules which require sonographic follow up, per consensus guidelines. Axillae: No enlarged lymph nodes. Chest Wall: Left upper extremity approach PICC tip terminates in the high SVC. Bones: Unremarkable. Lungs and Pleura: No pneumothorax or pleural effusions. No consolidation or suspicious nodules. Heart: Heart size is enlarged. No pericardial effusion. Severe LAD calcifications. Thoracic Vessels: No aortic aneurysm. Mediastinum and Grazyna: No enlarged lymph nodes. Esophagus: No wall thickening. No hiatal hernia. Upper Abdomen: Reflux of contrast into the IVC. IMPRESSION: No pulmonary embolus. Reflux of contrast into the IVC, indicating elevated heart pressures. Cardiomegaly severe LAD calcifications. Dictated by: Blayne Terry M.D. on 10/07/2023 at 9:30 Approved by: Blayne Terry M.D. on 10/07/2023 at 9:35
--- NOTE | 2023-10-07 08:21 | P.PN_ITS ---
Subjective Subjective Date Patient Seen: 10/07/23 Time Patient Seen: 08:21 Interval history: Patient with limited oxygen requirement Lab work this morning shows returned to baseline of her renal function. BUN is improved as well. Carbon dioxide his remained normal. Glucose 173. White count stable Patient had an episode x2 overnight where she woke confused disoriented although was rapidly reoriented and stayed that way. This is really made her quite anxious She was up with physical therapy felt like her legs are working as well as they ever do and she was very pleased by that since she was worried she would never walk again Still somewhat bradycardic but not as dramatically so overnight Exam Vital Signs (past 8 hours): - 10/07/23 00:22 10/07/23 00:22 10/07/23 00:30 Temperature Pulse Rate 68 56 L Respiratory Rate 27 H 16 Blood Pressure 168/73 H Pulse Oximetry 95 97 10/07/23 03:00 10/07/23 03:15 10/07/23 03:30 Temperature Pulse Rate 47 L 48 L 87 Respiratory Rate 10 L 10 L 22 Blood Pressure Pulse Oximetry 99 99 10/07/23 03:38 10/07/23 03:38 10/07/23 03:38 Temperature 97.6 F Pulse Rate 75 Respiratory Rate 22 Blood Pressure 162/81 H Pulse Oximetry 96 10/07/23 03:45 10/07/23 04:00 10/07/23 04:15 Temperature Pulse Rate 70 67 63 Respiratory Rate 21 24 27 H Blood Pressure Pulse Oximetry 98 97 97 10/07/23 04:30 10/07/23 04:45 10/07/23 05:00 Temperature Pulse Rate 61 63 57 L Respiratory Rate 15 15 22 Blood Pressure Pulse Oximetry 98 98 97 Fraction of Inspired Oxygen 30 Oxygen Delivery Method Nasal Cannula Oxygen Flow Rate 1 Objective Labs 10/07/23 03:55 10/07/23 03:55 Labs: Laboratory Results - last 24 hr 10/07/23 03:55 WBC 14.8 H RBC 3.66 L Hgb 11.3 L Hct 34.6 L MCV 94.6 MCH 30.9 MCHC 32.7 RDW 14.0 Plt Count 198 Neut % (Auto) 93.3 H Lymph % (Auto) 5.4 L Hubbard % (Auto) 1.2 L Eos % (Auto) 0.0 L Baso % (Auto) 0.1 Neut # (Auto) 73145 H Lymph # (Auto) 800 L Hubbard # (Auto) 200 Eos # (Auto) 0 Baso # (Auto) 0 Sodium 139 Potassium 4.7 Chloride 106 Carbon Dioxide 26 BUN 40 H Creatinine 1.14 H Estimated GFR 49 L BUN/Creatinine Ratio 35.1 H Glucose 173 H Calcium 8.1 L Total Bilirubin 0.4 AST 28 ALT 37 H Alkaline Phosphatase 92 Total Protein 6.7 Albumin 3.4 L Globulin 3.3 Albumin/Globulin Ratio 1.0 PFSH Medical History Pulmonary embolism Impaired glucose tolerance Cardiomyopathy Chronic renal failure, stage 3a Uncomplicated opioid dependence Osteoarthritis History of adenomatous polyp of colon (04/07/16) Gout Hyperlipidemia Chronic pain syndrome (04/14/11) Hypertension Surgical History Anesthesia History of back surgery History of surgery History of cholecystectomy History of knee replacement Status post appendectomy S/P total abdominal hysterectomy and bilateral salpingo-oophorectomy Family History Grandfather Family history of diabetes mellitus (DM) Social History marital status: number of children: 2 household members: spouse lives independently: Yes caregiver/support person: No housing: house pets and animals: No education level: college occupational status: employed current occupational exposures/hazards: No leisure activities: games and other Smoking Status: Never smoker Tobacco: How many years used: 0 quit status: quit date established second hand exposure: Yes (Past) alcohol intake: current substance use type: does not use Assessment & Plan Assessment & Plan narrative: 1. Respiratory failure-still not clear what the underlying etiology is. Renal function has improved significantly go ahead and get a CT angiogram of her chest which allow me some look at her lung parenchyma as well as rule out recurrent pulmonary emboli. Continue with the IV corticosteroids for now for presumed long-term chronic obstructive lung disease 2. Acute kidney injury-resolved. Renal function back to baseline. As above will go ahead and get the CT angiogram. Have cut down on IV fluids therefore as well even further. 3. Hypotension-blood pressure has remained stable off of her antihypertensives slowly creeping up. May need to return her to whatever antihypertensive I would be cautious about beta-maria luisa therapy in the future given her bradycardia noted above (although that may been least in part secondary to her acidosis) 4. Chronic back pain-still major concern the patient. Using the hydrocodone but not excessively. Not actually complaining dramatically of that at this time. 5. Impaired glucose tolerance-blood sugar 170+ on lab work this morning. Continue to monitor in that fashion for now. If numbers have been over 200 I would have instituted fingerstick blood sugar checks but will not do that at this time 6. Weakness-physical therapy started. Patient feels like she is much better than she was upon admission fortunately. Overall patient is tremendously better. Unclear whether she would need or benefit from senior care placement when ready for discharge although patient is adamant that that has not going to happen. It may well be that she will not require that she is already tremendously better.
[2023-10-07] MEDS: CHOLECALCIFEROL (VITAMIN D3) 400 UNIT TABLET PO (08:44)
[2023-10-07] MEDS: DOCUSATE 100 MG CAPSULE 200 MG PO (08:44)
[2023-10-07] MEDS: ENOXAPARIN 100 MG/ML SYRINGE SUBCUT (08:44)
[2023-10-07] MEDS: PREGABALIN 75 MG CAPSULE 150 MG PO (08:44)
[2023-10-07] MEDS: CELECOXIB 200 MG CAPSULE PO (08:44)
[2023-10-07] MEDS: SENNOSIDES 8.6 MG TABLET PO ×2 (08:44→20:29)
--- NOTE | 2023-10-07 10:38 | PT.IPTN ---
Current Diagnoses Respiratory failure, unspecified, unspecified whether with hypoxia or hypercapnia (10/05/23) Physical Therapy Treatment Note M2 PT-IP Current Condition Start: 10/06/23 13:39 Freq: NEEDED Status: Active Protocol: Document 10/06/23 10:50 AB (Rec: 10/06/23 13:56 AB [id number]) Physical Therapy Current Condition Current Condition Evaluation Date 10/06/23 Treatment Diagnosis respiratory failure; ECTOR; difficulty in walking Onset Date 10/05/23 M3 PT-IP Subjective Start: 10/06/23 13:39 Freq: NEEDED Status: Active Protocol: Document 10/07/23 11:17 ZF (Rec: 10/07/23 11:31 ZF [id number]) Subjective Physical Therapy Visit Type Type Treatment Note Visit Start Time 10:38 Visit Stop Time 11:12 Number of SUPPLY PERSON Visits 1 Physical Therapy Visit Comments Patient Comments Agreeable to therapy after shower. M4 PT-IP Mobility and Gait Start: 10/06/23 13:39 Freq: NEEDED Status: Active Protocol: Document 10/07/23 11:17 ZF (Rec: 10/07/23 11:31 ZF [id number]) PT-Bed Mobility Assessment Supine to Sit Supine to Sit Standby Assistance,Head of Bed Elevated Sit to Supine Sit to Supine Standby Assistance,Head of Bed Elevated Scooting Scooting to Edge of Bed Standby Assistance PT-Transfer Assessment Sit to and From Stand Sit to and from Stand Standby Assistance,Contact Guard Assistance,1 Person Assistance Equipment Transfer Assistive Device Gait Belt,Front Wheeled Walker Orthotic/Prosthetic Devices or Brace: No Transfers Transfer Destination Toilet Transfer Ability Level of Assist Standby Assistance Comments Mobility Comments Pt resting in bed after shower , in room, pt agreeable to PT before taking a nap. Pt not on sup O2, O2sat : 95%. Sup>Sitting EOB is SBA. STS from EOB, toilet w/fww, CGA. Pt amb in room x50' w/fww , SBA. Pt dems mild SOB after standing and gait activities, O2 monitored in bed, 88%. Pt cued for pursed lip breathing, increases to above 92% within x2 mins. Gait Assessment Gait Gait Assistance Required: Standby Assistance,1 Person Assist Distance (Feet) 50 Able to Maintain Weight Bearing Status Yes During Gait Assistive Devices Assistive Device Gait Belt,Front Wheeled Walker Orthotic/Prosthetic Devices or Brace: No Gait Deviations General Gait Pattern Decreased Stride Length, Decreased Feet Clearance,Step- to Gait Factors Limiting Gait Function Factors Limiting Gait Function Decreased Activity Tolerance, Decreased Strength,Difficulty Following Directions,Pain,Poor Balance,Poor Safety Awareness ,Respiratory Distress PT-Balance Assessment Sitting Balance and Reactions Static Sitting Balance Ability Normal Dynamic Sitting Balance Ability Good Standing Balance and Reactions Static Standing Balance Ability Good Dynamic Standing Balance Ability Good M5 PT-IP Objective Assessments Start: 10/06/23 13:39 Freq: NEEDED Status: Active Protocol: Document 10/06/23 10:50 AB (Rec: 10/06/23 13:56 AB [id number]) Orientation Orientation/Cognition Level of Alertness Alert Orientation Name,Place,Situation Language Function Ability No Deficits Noted Safety Awareness Decreased Safety Awareness Memory Description No Deficits Noted Gross Range of Motion Lower Extremity ROM Assessment Within Functional Limits Strength Lower Extremity Strength Assessment Bilaterally Impaired Comments Strength Comments L hip: 4-/5 L knee: 3+/5 R hip: 3+/5 R knee: 4-/5 Coordination Assessment Gross Coordination Gross Coordination WNL Sensation Assessment Sensation Gross Sensation WNL Muscle Tone Muscle Tone WNL Yes M6 PT-IP Treatment Start: 10/06/23 13:39 Freq: NEEDED Status: Active Protocol: Document 10/07/23 11:17 ZF (Rec: 10/07/23 11:31 [id number]) Physical Therapy Treatment Education Education Provided Safety M7 PT-IP Assessment and Plan Start: 10/06/23 13:39 Freq: NEEDED Status: Active Protocol: Document 10/07/23 11:17 ZF (Rec: 10/07/23 11:31 [id number]) PT Summary Assessment and Plan Potential Rehabilitation Potential Fair Summary Impairments Pain,ROM,Strength,Balance, Coordination,Sensation,Tone, Cognition,Bed Mobility, Transfers,Gait,Activity Tolerance Assessment Summary Pt reports feeling much improved today. She is SBA w/ all functional mobility, except STS require CGA assist from low toilet seat. Pt dems improved tolerance for activity w/o sup O2. O 2sat went below 90% toward end of extended activities, ( ambulation, toilet transfer, standing at sink for hand hygiene) but increased to above 92% within x2 mins. Pt and report plenty of help at home with sons, daughter in laws and grand kids in the area. Goals Bed Mobility Goal Standby Assistance Transfer Goal Standby Assistance,Front Wheeled Walker Gait Goal Standby Assistance,Front Wheel Walker Gait Distance 25 Other Goals improve bed mobility, transfers, ambulation using 4WW/up walker mod I 150 ft up/down 1 step using SPC/4WW SBA Days to Meet Goals 10 Frequency of Treatment Frequency Of Treatment Once a Day Treatment Plan Physical Therapy Treatment Plan Bed Mobility Training,Transfer Training,Gait Training, Therapeutic Exercise,Balance Retraining,Discharge Planning, Hot or Cold Pack,Neuromuscular Re-ed,Coordination Retraining Precautions Other Precautions O2 sat, falls Recommendations To Nursing Amount of Assist Needed 1 Person Assist Discharge Recommendations PT Discharge Recommendations Home with 22/03 Assist Available,Outpatient PT Transportation Needs at Discharge Private Vehicle
[2023-10-07] MEDS: HYDROCODONE/ACET 10/325 TABLET 2 TAB PO (15:56)
[2023-10-07] MEDS: FLEETS ENEMA 1 EACH PR (16:33)
[2023-10-07] MEDS: BISACODYL 5 MG TABLET PO (17:31)
[2023-10-07] MEDS: SODIUM CHLORIDE 0.9% 1,000 ML 80 ML IV (20:28)
[2023-10-08] VITALS (23 sets, daily range): BP systolic 166–218; BP diastolic 80–102; PULSE 46–96; RESP 11–28; TEMP 36.6; O2SAT 92
[2023-10-08] MEDS: HYDROCODONE/ACET 10/325 TABLET 1 TAB PO ×2 (02:37→06:57)
[2023-10-08 05:40] LABS: Blood Urea Nitrogen 40 mg/dL (7-17); Calcium 8.6 mg/dL (8.4-10.2); Carbon Dioxide 26 mmol/L (22-32); Chloride 109 mmol/L (98-107); Estimated Glomerular Filt Rate 52 mL/min (>60); Glucose 161 mg/dL (80-110); HEMOLYSIS < 15 (0-50); Potassium 4.6 mmol/L (3.4-5.1); Sodium 141 mmol/L (137-145)
[2023-10-08] MEDS: PANTOPRAZOLE DR 20 MG TABLET PO (06:57)
[2023-10-08] MEDS: methylPREDNISolone 125 MG/2 ML VIAL 60 MG IV (06:57)
--- NOTE | 2023-10-08 08:19 | PM.DS.1 ---
History of Present Illness History of Present Illness Date Patient Seen: 10/08/23 Time Patient Seen: 08:19 Chief complaint: Gen Weakness Narrative: 77-year-old female well known to me admitted with weakness via the emergency department. Patient presented with 24-48 hours of increased weakness and noting her blood pressure to be quite low as well. Just did not feel like she would any energy. Denies any cold or flu symptoms fever chills cough that is sort of thing. Just found it very disturbing that she could not support her own weight on her feet. Had been complaining of shortness a breath particularly with exertion over the last several weeks. When I saw her last in clinic in mid August she was complaining of this and we would plan to work her up for possible primary pulmonary disease with PFTs etcetera. She actually has an appointment for the PFTs on this week. Does not think her breathing is actually anywhere his now than it was (although ER evaluation would suggest otherwise) Does have a history of bilateral pulmonary emboli after long car trip from [place] as a single event now off of anticoagulation for several months and CT scan in August failing to demonstrate recurrent PEs done because of her shortness of breath at that time (which is why she was seen in the ER) In the ER chest x-ray unremarkable. Troponin unremarkable. She was found to be hypoxic with a probable metabolic and more significant respiratory acidosis present on blood gases. She seem to improve clinically least with mental status, with BiPAP. She was a bit of a leukocytosis and a bump in her creatinine and BUN suggesting acute kidney injury Urinalysis unremarkable EKG unremarkable She did require Levophed in the ER to maintain her blood pressure Discharge Providers Provider Date of admission: 10/05/23 13:27 Discharge Date: 10/08/23 Primary care physician: Oskar Soto MD Consults: 10/06/23 08:31 Consult to Physical Therapy Evaluate & Treat Comment: Weakness, inability to walk Physician Instructions: Evaluate and Treat 10/06/23 13:58 Consult to Occupational Therapy Evaluate & Treat Comment: Physician Instructions: Evaluate and treat Discharge provider: Oskar Soto MD Summary Hospital Course Discharge Diagnosis: 1. Acute hypercapnic respiratory failure 2. Acute respiratory acidosis 3. Acute metabolic acidosis 4. Acute hypotension 5. Bradycardia 6. COPD exacerbation 7. Impaired glucose tolerance 8. Acute kidney injury 9. Chronic renal failure stage 3 a 10. Uncomplicated opioid dependence 11. Hypertension 12. Chronic back pain 13. Hyperlipidemia 14. Gout 15. Metabolic encephalopathy Hospital Course: As above patient was admitted with an altered mental status global weakness inability to walk etcetera. She was found to have metabolic and respiratory acidosis with acute hypercapnic respiratory failure. She was placed on BiPAP initially. This seem to improve her overall level of function although her acidosis did not really improve. She was given vigorous IV fluids for hypotension and her acute kidney injury. Despite this her blood pressure remained low and she required vasopressor assistance with Levophed. Over the first 24 hours she was able to be weaned off of the Levophed. Her renal function slowly returned to baseline with the IV fluids which were therefore reduced Repeat echocardiography demonstrated improvement in overall overall left ventricular function from echo done in early 2022. No new findings on her echo. What is her renal function improved repeat imaging of her lungs looking for recurrent pulmonary emboli was performed and failed to demonstrate recurrent pulmonary emboli. She had been placed on full-dose Lovenox prior to the scan and that was reduced to prophylactic dosing at that point. There has also no evidence of intraparenchymal abnormality of her lungs e.g. pneumonia. Patient was able to be up on her feet with physical therapy and felt like she was back to baseline by the day prior to discharge Patient's antihypertensive therapies were all held given her hypotension and bradycardia. Her blood pressure slowly crept up. Morning of discharge blood pressure was 2 100+ systolic. She was restarted on her lisinopril at 40 mg daily. She will be discharged on reduced dose of furosemide given the acute kidney injury reduced dose of lisinopril which is probably excessive dosing to begin with, off of her metoprolol given the noted bradycardia with close follow-up as an outpatient Patient also will complete a Medrol Dosepak for treatment of presumed chronic lung disease/chronic obstructive lung disease. That will need to be evaluated as an outpatient as well Overall I feel it is as likely as anything that there is some medication mismanagement involving either patient's opioid narcotics plus her diazepam and or her antihypertensive therapy especially given the hypotension and marked bradycardia that was noted. Patient is pretty convinced that did not happen but she will go home and check her medications carefully. Perhaps her physiology has changed such as she really was overmedicated with her pre hospitalization dosing of her antihypertensives as a contributing factor etcetera. Will discharge her as above and as needed slowly increase her antihypertensive therapy to control her blood pressure, as an outpatient Exam Vital Signs (past 8 hours): - 10/08/23 05:00 Pulse Rate 72 Respiratory Rate 21 Blood Pressure 166/80 H Pulse Oximetry 92 Oxygen Flow Rate 0 Fraction of Inspired Oxygen 30 Oxygen Delivery Method Nasal Cannula Oxygen Flow Rate 0 Objective Labs 10/07/23 03:55 10/08/23 05:10 Labs: Laboratory Results - last 24 hr 10/08/23 05:10 Sodium 141 Potassium 4.6 Chloride 109 H Carbon Dioxide 26 BUN 40 H Creatinine 1.08 H Estimated GFR 52 L BUN/Creatinine Ratio 37.0 H Glucose 161 H Calcium 8.6 PFSH Medical History (Updated 10/08/23 @ 08:20 by Oskar Soto MD) Pulmonary embolism Impaired glucose tolerance Cardiomyopathy Chronic renal failure, stage 3a Uncomplicated opioid dependence Osteoarthritis History of adenomatous polyp of colon (04/07/16) Gout Hyperlipidemia Chronic pain syndrome (04/14/11) Hypertension Surgical History Anesthesia History of back surgery History of surgery History of cholecystectomy History of knee replacement Status post appendectomy S/P total abdominal hysterectomy and bilateral salpingo-oophorectomy Family History Grandfather Family history of diabetes mellitus (DM) Social History marital status: number of children: 2 household members: spouse lives independently: Yes caregiver/support person: No housing: house pets and animals: No education level: college occupational status: employed current occupational exposures/hazards: No leisure activities: games and other Smoking Status: Never smoker Tobacco: How many years used: 0 quit status: quit date established second hand exposure: Yes (Past) alcohol intake: current substance use type: does not use Discharge Assessment & Plan Assessment and Plan Plan of Treatment: Discharged on reduced dose furosemide reduced dose lisinopril and off of metoprolol. Also need a Medrol Dosepak for treatment of chronic lung disease Close follow-up as an outpatient to follow up blood pressure and respiratory function. Patient will need PFTs performed which unfortunately were scheduled while patient was hospitalized will need to be redone/rescheduled when patient's at a more steady state as an outpatient Discharge Plan Discharge Plan Patient Disposition: Home Discharge orders & Medications Prescriptions: New methylprednisolone 4 mg tablets,dose pack See Rx Instructions .ROUTE .COMPLEX Qty: 21 0RF Rx Instructions: orally per package directions Continued ascorbic acid (vitamin C) 500 MG tablet 500 mg PO QDAY Qty: 0 CHOLECALCIFEROL (VITAMIN D3) (Vitamin D3) 400 unit PO QDAY Qty: 0 VITAMIN B COMPLEX (Vitamin B Complex) 1 tab PO QDAY Qty: 0 CA PANTOTHENATE/FOLIC ACID/VIT (MULTIVITAMIN) 1 tab PO QDAY Qty: 0 celecoxib 200 mg capsule 200 mg PO DAILY Qty: 90 3RF Rx Instructions: TAKE 1 CAPSULE BY MOUTH EVERY MORNING WITH FOOD diazepam 5 mg tablet 5 mg PO Q8H PRN (Reason: anxiety) Qty: 180 0RF omeprazole 20 mg capsule,delayed release(DR/EC) 20 mg PO BID Qty: 180 3RF hydrocodone-acetaminophen 10-325 mg tablet 1 - 2 tab PO Q4H PRN (Reason: pain in joints) Qty: 360 0RF lisinopril 40 mg tablet 40 mg PO QAM Patient Comments: Patient reports Last two weeks my blood pressure has been low so I've only been taking it once a day in the morning. docusate sodium 100 mg Capsule 200 mg PO DAILY bisacodyl [Dulcolax (bisacodyl)] 5 mg Tablet,Delayed Release (Dr/Ec) 5 mg PO PRN PRN (Reason: Constipation) Changed furosemide 40 mg tablet 40 mg PO DAILY Qty: 90 0RF pregabalin [Lyrica] 150 mg capsule 150 mg PO DAILY Qty: 180 2RF Patient Comments: Patient states she takes this med once a day. Discontinued metoprolol tartrate [Lopressor] 100 mg tablet 150 mg PO BID Qty: 270 3RF Patient Comments: Takes PM dose around 3-4pm. No Action (DME) Disabled Parking See Rx Instructions .ROUTE .MEDSUPPLY Qty: 1 0RF Rx Instructions: Patient qualifies for disabled parking as per the attached form. Follow up/Referrals: Oskar Soto MD [Primary Care Provider] - 1 Week Discharge Health Status Multidrug resistant organism: No MDRO Diet/Activity/Treatments Diet: Low-sodium Visit Report/Discharge Packet Stand Alone Forms: Patient Portal/API, Stroke Signs & Symptoms Discharge Data Primary Care Provider: Oskar Soto
[2023-10-08] MEDS: PREGABALIN 75 MG CAPSULE 150 MG PO (08:32)
[2023-10-08] MEDS: DOCUSATE 100 MG CAPSULE 200 MG PO (08:32)
[2023-10-08] MEDS: SENNOSIDES 8.6 MG TABLET PO (08:32)
[2023-10-08] MEDS: CELECOXIB 200 MG CAPSULE PO (08:32)
[2023-10-08] MEDS: CHOLECALCIFEROL (VITAMIN D3) 400 UNIT TABLET PO (08:32)
[2023-10-08] MEDS: lisinopriL 20 MG TABLET 40 MG PO (08:32)
--- NOTE | 2023-10-08 10:40 | PC.NURSE ---
Discharge Note Patient A&O, VSS, RA, no complaints of pain/discomfort. Discharge packet reviewed with patient, all questions/concerns addressed. TELE/PICC/PIV discontinued. Patient able to dress self and pack all belongings. Patient reminded to oyster picker prescription at preferred pharmacy. Patient taken down via wheelchair to POV.
--- NOTE | 2023-10-08 11:47 | CM.DPNOTE ---
DC Note Discharge home w/spouse and family, patient denies need for HH services. Cleared by therapies for this plan. No additional CM needs identified. JW
== END 2023-10-08 10:30 | disposition home or self-care (01) | DRG 189 ==
LOC: ED 13:24 → AC 13:28 → ICU 14:26
PROVIDERS: Admitting Provider Internal Medicine; Emergency Provider Emergency Medicine; PCP Internal Medicine; Referring Provider Emergency Medicine; Visit Provider Internal Medicine
DX: J96.02 Acute respiratory failure with hypercapnia (principal); G93.41 Metabolic encephalopathy; J44.1 Chronic obstructive pulmonary disease with (acute) exacerbation; N17.9 Acute kidney failure, unspecified; E87.4 Mixed disorder of acid-base balance; F11.20 Opioid dependence, uncomplicated; G89.29 Other chronic pain; M54.9 Dorsalgia, unspecified; R73.02 Impaired glucose tolerance (oral); I12.9 Hypertensive chronic kidney disease with stage 1 through stage 4 chronic kidney disease, or unspecified chronic kidney disease; N18.31 Chronic kidney disease, stage 3a; I95.9 Hypotension, unspecified; E78.5 Hyperlipidemia, unspecified; M10.9 Gout, unspecified; R00.1 Bradycardia, unspecified; Z86.711 Personal history of pulmonary embolism
CPT/HCPCS: 36415; 36569; 36592; 36600; 71045; 71275; 80048; 80053; 81001; 82550; 82805; 83605; 83690; 83735; 83880; 84145; 84484; 85025; 85610; 85730; 87040; 87633; 87797; 93005; 93010; 93306; 94660; 94762; 96365; 96367; 97116; 97162; 97166; 97530; 97535; 99223; 99233; 99238; 99285; 99291; 99292; J1642; J1650; J2930; Q9967

== ENCOUNTER → 2023-10-22 13:47 | Outpatient (CLI) | payer OTHER, SELFPAY ==
[2023-01-12 11:14] VITALS: BMI 37.8
[2023-10-05 12:30] VITALS: PULSE 50
[2023-10-05 15:35] VITALS: BMI 35.9
[2023-10-06 02:00] VITALS: RESP 20; O2SAT 95
== END ==
LOC: RESP 13:48
PROVIDERS: PCP Internal Medicine; Referring Provider Internal Medicine; Visit Provider Internal Medicine
DX: R06.02 Shortness of breath (principal); J98.8 Other specified respiratory disorders
CPT/HCPCS: 94060; 94726; 94729

== ENCOUNTER → 2023-11-08 16:47 | Outpatient (CLI) | payer OTHER, SELFPAY ==
[2023-10-05 12:30] VITALS: PULSE 50
[2023-10-05 15:35] VITALS: BMI 35.9
[2023-10-06 02:00] VITALS: RESP 20; O2SAT 95
[2023-11-08 17:21] LABS: Add Manual Diff / Slide Review NO; Basophils Absolute Auto 100 /uL (0-100); Basophils Percent Auto 0.6 % (0-2); Eosinophils Absolute Auto 300 /uL (0-450); Eosinophils Percent Auto 3.1 % (2-4); Hematocrit 39.2 % (36-46); Lymphocytes Absolute Auto 2300 /uL (1100-4500); Lymphocytes Percent Auto 25.3 % (25-40); Mean Corpuscular HGB Conc 33.1 % (30-36); Mean Corpuscular Hemoglobin 30.8 PG (26-34); Mean Corpuscular Volume 93.2 fL (80-100); Monocytes Absolute Auto 600 /uL (0-900); Monocytes Percent Auto 6.4 % (3-14); Neutrophils Absolute Auto 5900 /uL (1500-7000); Neutrophils Percent Auto 64.6 % (50-75); Platelet Count 241 X10^3/uL (150-400); Red Blood Cell Count 4.21 X10^6/uL (4.0-5.2); Red Cell Distribution Width 14.3 % (11.6-14.8); White Blood Cell Count 9.1 X10^3/uL (4.5-11.0)
[2023-11-08 17:34] LABS: Hemoglobin A1C% w Est Avg Glu 6.3 % (4.0-6.0)
[2023-11-08 17:59] LABS: Alanine Aminotransferase 21 IU/L (<35); Albumin Globulin Ratio 1.2 (1.0-2.8); Alkaline Phosphatase 106 U/L (38-126); Aspartate Aminotransferase 42 IU/L (14-36); BUN Creatinine Ratio 24.8 (6-22); Bilirubin Total 0.5 mg/dL (0.2-1.3); Blood Urea Nitrogen 25 mg/dL (7-17); Calcium 9.5 mg/dL (8.4-10.2); Carbon Dioxide 33 mmol/L (22-32); Chloride 103 mmol/L (98-107); Estimated Glomerular Filt Rate 57 mL/min (>60); Globulin 3.3 g/dL (1.7-4.1); Glucose 183 mg/dL (80-110); HEMOLYSIS 22 (0-50); Potassium 4.3 mmol/L (3.4-5.1); Sodium 139 mmol/L (137-145); Total Protein 7.3 g/dL (6.3-8.2)
== END ==
PROVIDERS: PCP Internal Medicine; Referring Provider Internal Medicine; Visit Provider Internal Medicine
DX: R73.02 Impaired glucose tolerance (oral) (principal); I42.9 Cardiomyopathy, unspecified; N18.31 Chronic kidney disease, stage 3a; I10 Essential (primary) hypertension; E78.5 Hyperlipidemia, unspecified; D72.829 Elevated white blood cell count, unspecified
CPT/HCPCS: 36415; 80053; 83036; 85025

== ENCOUNTER → 2023-12-20 16:08 | Outpatient (CLI) | payer OTHER, SELFPAY ==
[2023-10-05 12:30] VITALS: PULSE 50
[2023-10-05 15:35] VITALS: BMI 35.9
[2023-10-06 02:00] VITALS: RESP 20; O2SAT 95
--- NOTE | 2023-12-20 16:09 | DI.RAD.S_ITS ---
PROCEDURE: XR SHOULDER RT MIN 2V INDICATIONS: acute right shoulder pain TECHNIQUE: 3 views of the shoulder were acquired. COMPARISON: None. FINDINGS: Bones: No fractures or dislocations. Mild acromioclavicular joint osteoarthritic changes are seen. Moderate glenohumeral joint osteoarthritic changes also noted. No suspicious bony lesions. Visualized ribs appear intact. Soft tissues: No suspicious soft tissue calcifications. IMPRESSION: Mild acromioclavicular joint osteoarthritis and moderate glenohumeral joint osteoarthritis. No acute fracture or dislocation. Dictated by: Jimbo Alexander M.D. on 12/20/2023 at 16:58 Approved by: Jimbo Alexander M.D. on 12/20/2023 at 17:09
== END ==
PROVIDERS: PCP Internal Medicine; Referring Provider Internal Medicine; Visit Provider Internal Medicine
DX: M19.011 Primary osteoarthritis, right shoulder (principal); M25.511 Pain in right shoulder
CPT/HCPCS: 73030

== ENCOUNTER → 2024-01-13 10:12 | Outpatient (CLI) | payer OTHER, SELFPAY ==
[2023-10-05 12:30] VITALS: PULSE 50
[2023-10-05 15:35] VITALS: BMI 35.9
[2023-10-06 02:00] VITALS: RESP 20; O2SAT 95
--- NOTE | 2024-01-13 10:13 | DI.CT.S_ITS ---
PROCEDURE: CT UE RT WO CON INDICATIONS: PRIMARY OSTEOARTHRITIS, RIGHT SHOULDER TECHNIQUE: Noncontrast 0.75 mm thick sections acquired from the acromioclavicular joint to the inferior scapula, with coronal and sagittal reformatting. COMPARISON: [facility], CR, XR SHOULDER RT MIN 2V, 12/20/2023, 15:21. FINDINGS: Image quality: Excellent. Bones: Mild degenerative changes of the right acromioclavicular joint with associated ossification. The right clavicle is intact. Mild to moderate degenerate changes of the glenohumeral joint, with mild joint space narrowing and humeral head osteophytosis. No acute fracture or dislocation of the right shoulder. No glenoid retroversion. Visualized right ribs are unremarkable. Soft tissues: Multiple sub 5 mm pulmonary nodule in the right upper lobe (series 3, image 68), unchanged from prior CT chest on 10/07/2023. No right axillary lymphadenopathy. Small glenohumeral effusion. Moderate subcoracoid bursitis with a small calcified body, measuring 7 mm. Moderate tenosynovitis of the extra-articular biceps tendon. Severe fatty atrophy of the supraspinatus. IMPRESSION: 1. Mild degenerative change of the right acromioclavicular joint. Mild to moderate degenerative of the right glenohumeral joint. No glenoid retroversion. 2. Moderate subcoracoid bursitis with small calcified body. Moderate tenosynovitis of the extra-articular biceps tendon. 3. Severe fatty atrophy of the supraspinatus. 4. Multiple sub 5 mm pulmonary nodules, unchanged from 10/07/2023. Optional CT follow-up in 12 month can be considered if patient is high risk for lung cancer. Dictated by: Denisha Adamson M.D. on 01/13/2024 at 14:43 Approved by: Denisha Adamson M.D. on 01/13/2024 at 14:51
== END ==
PROVIDERS: PCP Internal Medicine; Referring Provider Orthopaedic Surgery; Visit Provider Orthopaedic Surgery
DX: M19.011 Primary osteoarthritis, right shoulder (principal); M75.51 Bursitis of right shoulder; M75.21 Bicipital tendinitis, right shoulder; R91.8 Other nonspecific abnormal finding of lung field; R06.02 Shortness of breath; E66.2 Morbid (severe) obesity with alveolar hypoventilation; I42.9 Cardiomyopathy, unspecified
CPT/HCPCS: 73200; 99215

== ENCOUNTER → 2024-04-24 13:48 | Outpatient (CLI) | payer OTHER, SELFPAY ==
[2023-10-05 12:30] VITALS: PULSE 50
[2023-10-05 15:35] VITALS: BMI 35.9
[2023-10-06 02:00] VITALS: RESP 20; O2SAT 95
--- NOTE | 2024-04-24 13:50 | DI.NM.S_ITS ---
PROCEDURE: NM KRISTIE PERF SPECT R&S PHARM Rest and pharmacological stress myocardial perfusion SPECT with gated imaging and ejection fraction RADIOPHARMACEUTICAL: 25.6 mCi Tc-99m tetrafosmin IV at rest and 26.1 mCi Tc-99m tetrafosmin IV at peak effect of pharmacological stress. [id number] was performed. INDICATIONS: CHEST PAIN TECHNIQUE: Radiopharmaceutical was injected at peak stress test, and also at rest. SPECT images were obtained. SPECT myocardial perfusion images were displayed in short axis, horizontal long axis, and vertical long axis views. Gated images were reviewed using Proven software. COMPARISON: None. CARDIAC STRESS: A pharmacologic stress test was performed under the supervision of an attending staff, using an infusion of lexiscan 0.4mg IV X1. Hemodynamic data: There is normal blood pressure and heart rate response to pharmacologic stress. Symptoms: The patient denied anginal chest pain. Aminophylline: none EKG: No diagnostic changes of ischemia; occasional PVCs noted. FINDINGS: Raw data: There is good myocardial uptake of radiotracer. No significant motion artifacts. Left ventricle function: Gated images demonstrate normal left ventricular wall thickening. No segmental wall motion abnormalities. No transient ischemic dilation; Left ventricle resting end diastolic volume is 120 mL. Left ventricle stress ejection fraction is 69%; normal range is above 45%. Myocardial perfusion: There is a mildly intense mostly reversible defect in the distal anterior wall that is consistent with ischemia but artifact can't be excluded as no prone imaging obtained due to physical limitations. No prior infarction. IMPRESSION: Abnormal pharm nuclear stress test. 1) There is a mildly intense mostly reversible defect in the distal anterior wall that is consistent with ischemia but artifact can't be excluded as no prone imaging obtained due to physical limitations. No prior infarction. SSS 2, SRS 0. 2) Normal left ventricular size, wall motion, and systolic function (EF post stress 69%). 3) No ST changes with lexiscan. 4) No angina during the study. 5) Compared to the nuc stress test done 05/05/2019, no significant change as per comparison with the report. Correlate clinically. Dictated by: Linda Wesley MD on 04/26/2024 at 14:14 Approved by: Linda Wesley MD on 04/26/2024 at 14:19
== END ==
PROVIDERS: PCP Internal Medicine; Referring Provider Internal Medicine; Visit Provider Internal Medicine
DX: R07.9 Chest pain, unspecified (principal); R94.39 Abnormal result of other cardiovascular function study
CPT/HCPCS: 78452; 93017; A9502; J2785

== ENCOUNTER → 2024-09-11 08:34 | Outpatient (CLI) | payer OTHER, SELFPAY ==
[2024-06-05 16:34] VITALS: PULSE 50; RESP 20; O2SAT 95; BMI 35.9
[2024-09-11 09:01] LABS: Add Manual Diff / Slide Review NO; Basophils Absolute Auto 0 /uL (0-100); Basophils Percent Auto 0.5 % (0-2); Eosinophils Absolute Auto 300 /uL (0-450); Eosinophils Percent Auto 3.7 % (2-4); Hematocrit 43.2 % (36-46); Hemoglobin 13.9 g/dL (12.0-16.0); Lymphocytes Absolute Auto 2500 /uL (1100-4500); Lymphocytes Percent Auto 34.5 % (25-40); Mean Corpuscular HGB Conc 32.2 % (30-36); Mean Corpuscular Hemoglobin 30.3 PG (26-34); Mean Corpuscular Volume 94.1 fL (80-100); Monocytes Absolute Auto 600 /uL (0-900); Neutrophils Absolute Auto 3900 /uL (1500-7000); Neutrophils Percent Auto 53.3 % (50-75); Platelet Count 237 X10^3/uL (150-400); Red Blood Cell Count 4.59 X10^6/uL (4.0-5.2); Red Cell Distribution Width 14.6 % (11.6-14.8); White Blood Cell Count 7.4 X10^3/uL (4.5-11.0)
[2024-09-11 09:05] LABS: Hemoglobin A1C% w Est Avg Glu 6.9 % (4.0-6.0)
[2024-09-11 09:17] LABS: Alanine Aminotransferase 22 IU/L (<35); Albumin 4.2 g/dL (3.5-5.0); Albumin Globulin Ratio 1.5 (1.0-2.8); Alkaline Phosphatase 114 U/L (38-126); Aspartate Aminotransferase 26 IU/L (14-36); BUN Creatinine Ratio 24.1 (6-22); Bilirubin Total 0.6 mg/dL (0.2-1.3); Blood Urea Nitrogen 28 mg/dL (7-17); Calcium 9.6 mg/dL (8.4-10.2); Chloride 96 mmol/L (98-107); Estimated Glomerular Filt Rate 48 mL/min (>60); Globulin 2.8 g/dL (1.7-4.1); Glucose 152 mg/dL (80-110); HEMOLYSIS < 15 (0-50); Sodium 139 mmol/L (137-145)
[2024-09-11 09:26] LABS: Carbon Dioxide 35 mmol/L (22-32)
== END ==
PROVIDERS: PCP Internal Medicine; Referring Provider Internal Medicine; Visit Provider Internal Medicine
DX: E11.22 Type 2 diabetes mellitus with diabetic chronic kidney disease (principal); N18.31 Chronic kidney disease, stage 3a; E66.2 Morbid (severe) obesity with alveolar hypoventilation
CPT/HCPCS: 36415; 80053; 83036; 85025

== ENCOUNTER → 2025-02-21 16:45 | Outpatient (CLI) | payer OTHER, SELFPAY ==
[2024-06-05 16:34] VITALS: PULSE 50; RESP 20; O2SAT 95; BMI 35.9
[2025-02-21 17:37] LABS: Hemoglobin A1C% w Est Avg Glu 6.8 % (4.0-6.0)
[2025-02-21 17:47] LABS: Alanine Aminotransferase 21 IU/L (<35); Albumin 4.3 g/dL (3.5-5.0); Albumin Globulin Ratio 1.3 (1.0-2.8); Alkaline Phosphatase 121 U/L (38-126); Aspartate Aminotransferase 23 IU/L (14-36); BUN Creatinine Ratio 28.2 (6-22); Bilirubin Total 0.5 mg/dL (0.2-1.3); Blood Urea Nitrogen 35 mg/dL (7-17); Calcium 9.5 mg/dL (8.4-10.2); Carbon Dioxide 33 mmol/L (22-32); Chloride 99 mmol/L (98-107); Cholesterol 228 mg/dL (140-199); Estimated Glomerular Filt Rate 44 mL/min (>60); Globulin 3.4 g/dL (1.7-4.1); Glucose 147 mg/dL (70-99); HDL Cholesterol 39 mg/dL (40-60); HEMOLYSIS < 15 (0-50); LDL Cholesterol Calculated 137 mg/dL (<100); Potassium 4.1 mmol/L (3.4-5.1); Sodium 140 mmol/L (137-145); Total Protein 7.7 g/dL (6.3-8.2); Triglycerides 262 mg/dL (35-150)
== END ==
PROVIDERS: PCP Internal Medicine; Referring Provider Internal Medicine; Visit Provider Internal Medicine
DX: E11.9 Type 2 diabetes mellitus without complications (principal); E78.5 Hyperlipidemia, unspecified; I12.9 Hypertensive chronic kidney disease with stage 1 through stage 4 chronic kidney disease, or unspecified chronic kidney disease; N18.31 Chronic kidney disease, stage 3a
CPT/HCPCS: 36415; 80053; 80061; 83036

== ENCOUNTER → 2025-06-16 13:53 | Outpatient (CLI) | payer OTHER, SELFPAY ==
[2024-06-05 16:34] VITALS: PULSE 50; RESP 20; O2SAT 95; BMI 35.9
--- NOTE | 2025-06-16 13:54 | DI.MRI.S_ITS ---
PROCEDURE: MR LUMBAR SPINE WO CON INDICATIONS: chronic low back pain TECHNIQUE: Noncontrast sagittal T1 spin echo and T2 fast echo, sagittal STIR, and T2 fast spin echo through the lumbar spine. In cases with scoliosis, additional coronal T2 fast spin echo may be performed. COMPARISON: [facility], , XR LUMBAR SPINE MIN 4V, 04/16/2025, 13:48. FINDINGS: Image quality: Excellent. Alignment and Curvature: Mild dextrocurvature. Mild anterolisthesis of L1 on L2. Grade 1 retrolisthesis of L2 on L3. Mild anterolisthesis of L4 on L5. Bone Marrow: Stable chronic L1 and L2 compression deformities. Postsurgical changes from right-sided L4-5 posterior spinal fixation and discectomy. Multilevel degenerative endplate changes. No acute vertebral body compression fractures. Spinal Cord: Conus medullaris terminates at the T12-L1 level. Visualized cord demonstrates normal signal and size. Paraspinous Soft Tissues: No paravertebral masses. T12-L1: Disc desiccation and minimal disc bulge. Facet arthropathy. No significant central canal or neural foraminal stenosis. L1-L2: Disc desiccation and mild height loss. Diffuse disc bulge. Facet hypertrophy. Mild to moderate central canal stenosis. Mild bilateral neural foraminal stenosis. L2-L3: Disc desiccation and severe height loss. Mild disc bulge. Facet arthropathy. Mild to moderate central canal stenosis. Mild bilateral neural foraminal stenosis. L3-L4: Postoperative changes. No central canal stenosis. No neural foraminal stenosis. L4-L5: Postoperative changes. No significant central canal or neural foraminal stenosis. L5-S1: Disc desiccation and height loss. Facet arthropathy. No significant central canal stenosis. Mild right and no left neural foraminal stenosis. IMPRESSION: 1. Multilevel degenerative changes and postoperative changes as described above. Stable chronic mild compression deformities of L1 and L2. 2. [id number] central canal stenosis at L1-L2 and L2-L3. 3. Mild multilevel neural foraminal stenosis. Dictated by: Arnav Torrez M.D. on 06/18/2025 at 8:24 Approved by: Arnav Torrez M.D. on 06/18/2025 at 8:31
== END ==
LOC: MRI 13:53
PROVIDERS: PCP Internal Medicine; Referring Provider Physical Medicine & Rehabilitation; Visit Provider Physical Medicine & Rehabilitation
DX: M54.50 Low back pain, unspecified (principal); Z98.890 Other specified postprocedural states; M51.35 Other intervertebral disc degeneration, thoracolumbar region; M47.815 Spondylosis without myelopathy or radiculopathy, thoracolumbar region; M51.369 Other intervertebral disc degeneration, lumbar region without mention of lumbar back pain or lower extremity pain; M48.061 Spinal stenosis, lumbar region without neurogenic claudication; M47.816 Spondylosis without myelopathy or radiculopathy, lumbar region; M47.817 Spondylosis without myelopathy or radiculopathy, lumbosacral region; M48.07 Spinal stenosis, lumbosacral region
CPT/HCPCS: 72148

== ENCOUNTER → 2025-08-21 10:03 | Outpatient (CLI) | payer OTHER, SELFPAY ==
[2024-06-05 16:34] VITALS: PULSE 50; RESP 20; O2SAT 95; BMI 35.9
[2025-08-21 10:56] LABS: Hemoglobin A1C% w Est Avg Glu 7.4 % (4.0-6.0)
[2025-08-21 11:28] LABS: Alanine Aminotransferase 16 IU/L (<35); Albumin 4.1 g/dL (3.5-5.0); Albumin Globulin Ratio 1.3 (1.0-2.8); Alkaline Phosphatase 109 U/L (38-126); Blood Urea Nitrogen 24 mg/dL (7-17); Calcium 9.6 mg/dL (8.4-10.2); Carbon Dioxide 36 mmol/L (22-32); Chloride 96 mmol/L (98-107); Estimated Glomerular Filt Rate 45 mL/min (>60); Globulin 3.1 g/dL (1.7-4.1); Glucose 172 mg/dL (70-99); HEMOLYSIS < 15 (0-50); Potassium 3.9 mmol/L (3.4-5.1); Sodium 139 mmol/L (137-145); Total Protein 7.2 g/dL (6.3-8.2)
== END ==
PROVIDERS: PCP Internal Medicine; Referring Provider Internal Medicine; Visit Provider Internal Medicine
DX: E11.22 Type 2 diabetes mellitus with diabetic chronic kidney disease (principal); I12.9 Hypertensive chronic kidney disease with stage 1 through stage 4 chronic kidney disease, or unspecified chronic kidney disease; N18.31 Chronic kidney disease, stage 3a
CPT/HCPCS: 36415; 80053; 83036